=== PATIENT | male | born 1950 | race Caucasian/White ===

== ENCOUNTER → 2023-06-15 12:36 | Outpatient (REF) | payer MEDICARE, OTHER, SELFPAY ==
[2023-06-15 13:28] LABS: INR 0.95; PT 12.9 Sec (11.4-14.6)
== END ==
LOC: SDSPAT 12:36
PROVIDERS: ATTENDING PHYSICIAN Specialist; FAMILY PHYSICIAN Family Medicine
DX: N32.89 Other specified disorders of bladder (principal)
CPT/HCPCS: 36415; 85610; 85730

== ENCOUNTER → 2023-07-30 14:17 | Outpatient (REF) | payer MEDICARE, OTHER, SELFPAY | LOC: RAD 14:17 | PROVIDERS: ATTENDING PHYSICIAN Internal Medicine Gastroenterology; FAMILY PHYSICIAN Family Medicine; REFERRING PHYSICIAN Internal Medicine Hematology & Oncology | DX: C18.2 Malignant neoplasm of ascending colon (principal); C18.9 Malignant neoplasm of colon, unspecified | CPT/HCPCS: 71260; 74177; Q9967 ==

== ENCOUNTER → 2023-08-05 08:11 | Outpatient (REF) | payer MEDICARE, OTHER, SELFPAY | LOC: MRI 08:11 | PROVIDERS: ATTENDING PHYSICIAN Internal Medicine Hematology & Oncology; FAMILY PHYSICIAN Internal Medicine | DX: C18.9 Malignant neoplasm of colon, unspecified (principal); C18.2 Malignant neoplasm of ascending colon | CPT/HCPCS: 74183; A9575 ==

== ENCOUNTER → 2023-08-07 07:09 | Outpatient (REF) | payer MEDICARE, OTHER, SELFPAY ==
[2023-08-07 07:35] VITALS: BP 135/65; BP_SYST 63
[2023-08-07 07:37] LABS: Hematocrit 40.1 % (39.0-52.0); Hemoglobin 13.6 g/dL (13.0-18.0); Mean Corp Hgb Conc. 33.9 g/dL (33.0-37.0); Mean Corpuscular Hgb 33.7 pg (27.0-31.0); Mean Corpuscular Volume 99.3 fL (80.0-94.0); Mean Platelet Volume 9.2 fL (7.4-10.4); Platelet Count 227 10^3/uL (130-400); Red Blood Cell Count 4.04 10^6/uL (4.70-6.10); Red Cell Dist. Width 12.2 % (11.5-14.5); White Blood Cell Count 9.9 10^3/uL (4.8-10.8)
[2023-08-07 07:46] LABS: INR 0.99; PT 12.9 Sec (11.4-14.6)
[2023-08-07 09:28] VITALS: BP 106/91
== END ==
LOC: RADI 07:09
PROVIDERS: ATTENDING PHYSICIAN Internal Medicine Hematology & Oncology
DX: K76.89 Other specified diseases of liver (principal); C18.9 Malignant neoplasm of colon, unspecified; D68.8 Other specified coagulation defects
CPT/HCPCS: 36415; 47000; 76942; 85027; 85610; 99152; 99153

== ENCOUNTER 2023-09-06 06:14 | Inpatient (IN) | payer MEDICARE, OTHER, SELFPAY ==
[2023-08-24 09:55] VITALS: BMI 30.8
[2023-08-24 10:15] LABS: % Basophils 0.7 % (0-2); % Eosinophils 2.9 % (0-6); % Immature Granulocytes 0.4 % (0-0.5); % Lymphocytes 26.3 % (20.5-51.1); % Neutrophils 60.7 % (42.2-75.2); Absolute Basophils 0.1 10^3/uL (0-0.2); Absolute Eosinophils 0.2 10^3/uL (0-0.7); Absolute Lymphocytes 2.2 10^3/uL (1.2-3.4); Absolute Monocytes 0.7 10^3/uL (0.1-0.6); Hematocrit 39.7 % (39.0-52.0); Hemoglobin 13.5 g/dL (13.0-18.0); Mean Corpuscular Hgb 33.4 pg (27.0-31.0); Mean Corpuscular Volume 98.3 fL (80.0-94.0); Nucleated Red Blood Cells % 0 % (-); Platelet Count 224 10^3/uL (130-400); Red Blood Cell Count 4.04 10^6/uL (4.70-6.10); Red Cell Dist. Width 12.3 % (11.5-14.5); White Blood Cell Count 8.2 10^3/uL (4.8-10.8)
[2023-08-24 10:23] LABS: Blood Urea Nitrogen 22 mg/dl (9-20); Calcium 8.8 mg/dl (8.4-10.2); Carbon Dioxide 28 mmol/L (22-30); Chloride 104 mmol/L (98-107); Estimated Creatinine Clearance 47 ml/min; Glucose 95 mg/dl (70-99); Potassium 4.5 mmol/L (3.5-5.1); Sodium 135 mmol/L (135-145); eGFR 44.93
[2023-08-24 10:31] LABS: INR 0.98; PT 12.8 Sec (11.4-14.6)
[2023-09-06] VITALS (21 sets, daily range): BP systolic 100–160; BP diastolic 54–77; BMI 30.1
--- NOTE | 2023-09-06 06:55 | W.SUR.PREOP ---
Pre-Operative Surgical Note
-
I have examined this patient prior to the performance of the scheduled procedure.
The patient's condition is unchanged from the time of the current History and
Physical and the patient is able to undergo the scheduled procedure.
[2023-09-06] MEDS: PERIDEX 0.12% ORAL RINSE 15 ML PO (06:59)
[2023-09-06] MEDS: BACTROBAN NASAL 1 GRAM NASAL (06:59)
[2023-09-06] MEDS: NSS 500 IV (07:00)
[2023-09-06 09:39] LABS: ACT-LR - POC 227 Seconds (116-155)
[2023-09-06 10:29] LABS: ACT-LR - POC 260 Seconds (116-155)
--- NOTE | 2023-09-06 11:50 | W.SUR.POST ---
Surgical Immediate Post Op
Note
Pre Op Diagnosis: AAA
Post Op Diagnosis:AAA
Procedure Performed: FEVAR
Primary Surgeon: Parminder Ortiz MD
Assist: BRADY Del Cid
Anesthesia: GETA
Estimated Blood Loss: 100 mL
Fluids: See anesthesia flowsheet
Drains/Shunts: N/A
Specimens/Cultures: N/A
Doppler/Duplex/Angio (Y/N): Y
Complications: None
Operative Findings: Successful stenting of AAA with bilateral DP palpable pulses postoperatively
[2023-09-06 12:07] LABS: Hematocrit 32.8 % (39.0-52.0); Hemoglobin 11.3 g/dL (13.0-18.0); Mean Corp Hgb Conc. 34.5 g/dL (33.0-37.0); Mean Corpuscular Hgb 33.1 pg (27.0-31.0); Mean Corpuscular Volume 96.2 fL (80.0-94.0); Platelet Count 162 10^3/uL (130-400); Red Blood Cell Count 3.41 10^6/uL (4.70-6.10); Red Cell Dist. Width 12.2 % (11.5-14.5); White Blood Cell Count 17.8 10^3/uL (4.8-10.8)
[2023-09-06 12:16] LABS: INR 1.21; PT 15.3 Sec (11.4-14.6)
[2023-09-06 12:17] LABS: APTT 35.2 Sec (23.4-35.0)
[2023-09-06 12:22] LABS: Blood Urea Nitrogen 38 mg/dl (9-20); Calcium 7.9 mg/dl (8.4-10.2); Carbon Dioxide 20 mmol/L (22-30); Chloride 107 mmol/L (98-107); Estimated Creatinine Clearance 50 ml/min; Glucose 140 mg/dl (70-99); Potassium 4.7 mmol/L (3.5-5.1); Sodium 136 mmol/L (135-145); eGFR 48.55
--- NOTE | 2023-09-06 13:00 | PTCARENOTE ---
Pt arrived from PACU with RN, monitor with oxygen nasal cannula 4 liters via bed. He is awake and alert. C/O right eye discomfort 'I feel like there is something in my eye'. Right eye is red and he is continuously rubbing it. He was informed of the
plan of care of pulse checks, pain control and BP management. He was also oriented to the unit and the use of the call khoury. Right radial arterial line transduced, calibrated and monitored, all ports patent and secured. Left FA#20g protective
catheter with 0.9NSS @ 125ml/hr. Right AC #18g protective catheter flushed and patent. Palpable peripheral pulses, feet equally warm with good capillary refill. 4 liters nasal cannula, oxygen saturation 97%. Breath sounds CTA. He is clearing his
throat. C/O dryness in his throat. He was able to tolerate small sips of water. 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 Right groin slightly more tender than the left. He is flat until 1440. Temperature sensing Umanzor catheter
secured and draining clear yellow urine. Family at the bedside. He designated Krystin and primary emergency contact and Gali his secondary emergency contact, both his daughters. Attempted to clear 'debris' from his right eye using 0.9NN irrigant
without success.
[2023-09-06 13:17] LABS: Magnesium 1.9 mg/dl (1.6-2.3)
[2023-09-06] MEDS: ROXICODONE 5 MG PO (13:23)
[2023-09-06] MEDS: PLAVIX 300 MG PO (13:23)
[2023-09-06] MEDS: LOW STRENGTH ASPIRIN 81 MG PO (13:23)
[2023-09-06] MEDS: NSS 1000 IV ×2 (13:24→17:36)
[2023-09-06] MEDS: PROSCAR 5 MG PO (17:36)
[2023-09-06] MEDS: LIPITOR 20 MG PO (17:37)
--- NOTE | 2023-09-06 18:29 | PTCARENOTE ---
Left lower extremity KIERA wrap dressing CDI. Maintaining doppler signals to his foot. Feet equally warm.
[2023-09-06] MEDS: TUMS 2 TABLET PO (19:37)
--- NOTE | 2023-09-06 20:00 | PTCARENOTE ---
Resumed care of pt this evening. Received pt on nitro gtt infusing at 15 mcg/min. Pt is A&Ox3. Pt is able to move all 4 extremities, has sensation in all 4 extremities, and can make needs known. Pt is NSR/SB on tele monitor. Pt has trace edema at
surgical site, b/l groin. B/L Radial pulses and dorsalis pedal pulses all palpable. Rt DP weak on palpation. Pt on 1L of O2 satting at 94% pulse ox. On auscultation pt lungs sound diminished at the bases bilaterally. Surgical site, b/l groin closed
with surgical glue and ARRT TECHNOLOGIST. Surgical site is also ecchymotic.
[2023-09-06] MEDS: FLOMAX 0.400000000000000022 MG PO (20:59)
[2023-09-06] MEDS: HIPREX 1 GRAM PO (21:00)
[2023-09-06] MEDS: HEPARIN 5000 UNITS SC (21:02)
[2023-09-06] MEDS: TUMS EX (EXTRA STRENGTH) CHEWABLE 2 TABLET PO (21:40)
[2023-09-07] VITALS (12 sets, daily range): BP systolic 120–148; BP diastolic 59–89; BMI 31.1
--- NOTE | 2023-09-07 02:00 | PTCARENOTE ---
Nitro gtt turned off per protocol. Neurovascular checks unchanged upon reassessment. Pt denies pain.
[2023-09-07 04:48] LABS: Hematocrit 30.3 % (39.0-52.0); Hemoglobin 10.4 g/dL (13.0-18.0); Mean Corp Hgb Conc. 34.3 g/dL (33.0-37.0); Mean Corpuscular Hgb 33.3 pg (27.0-31.0); Mean Corpuscular Volume 97.1 fL (80.0-94.0); Mean Platelet Volume 9.3 fL (7.4-10.4); Platelet Count 163 10^3/uL (130-400); Red Blood Cell Count 3.12 10^6/uL (4.70-6.10); Red Cell Dist. Width 12.4 % (11.5-14.5); White Blood Cell Count 16.5 10^3/uL (4.8-10.8)
[2023-09-07 04:56] LABS: INR 1.09; PT 14.2 Sec (11.4-14.6)
[2023-09-07 04:57] LABS: APTT 31.2 Sec (23.4-35.0)
[2023-09-07 05:15] LABS: Blood Urea Nitrogen 37 mg/dl (9-20); Calcium 8.1 mg/dl (8.4-10.2); Carbon Dioxide 19 mmol/L (22-30); Chloride 107 mmol/L (98-107); Estimated Creatinine Clearance 48 ml/min; Glucose 132 mg/dl (70-99); Potassium 4.7 mmol/L (3.5-5.1); Sodium 134 mmol/L (135-145); eGFR 44.93
[2023-09-07 06:04] LABS: Hepatitis C Antibody Negative (Negative)
--- NOTE | 2023-09-07 08:00 | PTCARENOTE ---
Received pt awake and alert.speech is appropriate.+5/5 TENA.Denies pain.SR noted.A Line discontinued as ordered.Lungs CTA.PO 96% on RA.Appetite good.No BM.Umanzor discontinued.DTV 1400.BL groin puncture wounds intact with adhesive.No drainage or edema
noted.Plan of care discussed with pt.
[2023-09-07] MEDS: LOW STRENGTH ASPIRIN 81 MG PO (08:13)
[2023-09-07] MEDS: FLOMAX 0.400000000000000022 MG PO (08:14)
[2023-09-07] MEDS: THERAGRAN 1 TABLET PO (08:15)
[2023-09-07] MEDS: HIPREX 1 GRAM PO (08:15)
[2023-09-07] MEDS: CARDIZEM CD 180 MG PO (08:15)
[2023-09-07] MEDS: PLAVIX 75 MG PO (08:15)
[2023-09-07] MEDS: ZESTRIL 10 MG PO (08:16)
[2023-09-07] MEDS: HEPARIN 5000 UNITS SC (08:23)
--- NOTE | 2023-09-07 08:34 | W.PN.VS ---
Addendum entered and electronically signed by Parminder Ortiz MD 09/07/23 11:39:
Seen and examined with ALANNA Epps. Agree with findings as noted below. Patient without significant complaints. No abdominal pain. No postprandial pain. Abdomen is soft, nondistended, nontender. Groins flat bilaterally. Small incisions clean dry
and intact bilaterally. Feet are warm with right-sided 2+ palpable PT pulse, left-sided 2+ palpable DP pulse.
Umanzor with clear yellow urine. Labs reviewed.
Plan/as discussed and noted below.
Original Note:
Today's Communication / Plan
-
Plan reviewed with attending Dr. Parminder Ortiz
Assessment/Plan
-
Assessment: 72-year-old male POD #1 FEVAR for treatment of AAA
Plan:
Continue DAPT therapy
Discontinue arterial line
Discontinue Umanzor catheter
OOB to chair with progression of ambulation as tolerated
Subjective Data
-
Date of Service: September 07, 2023
Patient seen and examined at bedside, offers no complaints. Denies abdominal pain, nausea, vomiting, fever, and chills. Tolerating p.o. intake.
Objective Data
-
Vital Signs
Temp Pulse Resp BP Pulse Ox
97.9 F 47 11 145/64 95
09/07/23 08:00 09/07/23 06:15 09/07/23 06:15 09/07/23 06:00 09/07/23 06:15
Intake and Output
09/06/23 09/07/23 09/08/23
06:59 06:59 06:59
Intake Total 2359.5 / 2359.5
Output Total 1614 / 1614
Balance 745.5 / 745.5
Intake:
Oral fluids 360 / 360
IV fluids (Total) 1998.5 / 1998.5
Nitro gtt 14.5 / 14.5
Nss 1,000 ml @ 125 mls/hr IV . 625 / 625
Q8H POOL Rx#:[id number]
Nss 1,000 ml @ 80 mls/hr IV . 960 / 960
[id number] POOL Rx#:[id number]
nss 400 / 400
Output:
Urine, Umanzor 1614 / 1614
Lab Results
09/07/23 04:21
09/07/23 04:21
Calcium 8.1 mg/dl (8.4-10.2) L 09/07/23 04:21
Magnesium 1.9 mg/dl (1.6-2.3) 09/06/23 11:56
Physical Exam
-
AAOx3, no apparent distress
No tachycardia
No dyspnea on room air
ABD soft, nontender, nondistended
Bilateral groin sites CDI, Exofin glue intact, no evidence of hematoma, all surrounding compartments soft
Umanzor draining clear yellow urine
Bilateral feet warm with +2 palpable DP pulse
--- NOTE | 2023-09-07 11:49 | CON.INTV ---
Consultation
Consultation Request
Date/Time Consultation Requested: 09/07/2023
Date/Time Consultation Performed: 09/07/2023
Requesting Provider: Dr. Ortiz
Performing Provider: Dr. Tahir Rosado
Reason for Consultation: Postoperative ICU care
Medical History
-
History of Present Illness:
72-year-old man with past medical history significant for hypertension, high cholesterol, COPD, BPH, colon cancer spread to liver who also has history of infrarenal abdominal aortic aneurysm. Admitted for revascularization.Patient underwent FEVAR
on 09/07/2023.
Overnight without significant events. Remained hemodynamically stable.
This morning he is ambulatory.
Denies any significant pain.
Denies abdominal pain or back pain.
Denies shortness of breath.
Past Medical History
Past Medical History: Other (See assessment and plan section)
Social History
Tobacco: Former Smoker ([id number] history. Quit 3 years ago.)
Alcohol: None
Drug: None
Family History
Family History: Reviewed & Not Pertinent
Allergies / Home Medications
Allergies
Allergy/AdvReac Type Severity Reaction Status Date / Time
iodine Allergy Hives Verified 09/06/23 06:31
Home Medications
Medication Instructions Recorded Confirmed Last Taken Type
atorvastatin 20 mg tablet 20 mg PO QPM High Cholesterol 04/09/23 09/06/23 09/05/23 17:00 History
finasteride 5 mg tablet 5 mg PO QPM Urinary Issue 04/09/23 09/06/23 09/05/23 17:00 History
lisinopril 10 mg tablet 10 mg PO DAILY Blood Pressure 04/09/23 09/06/23 09/06/23 05:00 History
tamsulosin 0.4 mg capsule 0.4 mg PO BID Urinary Issue 04/09/23 09/06/23 09/05/23 17:00 History
diltiazem HCl 180 mg 180 mg PO DAILY Heart 05/29/23 09/06/23 09/06/23 05:00 History
tablet,extended release 24 hr Disease/Condition
fish, borage, flaxseed oils-omega 2 cap PO DAILY Supplement 05/29/23 09/06/23 09/05/23 05:00 History
3,6,9 cb #1 400 mg-400 mg-400 mg
cap ([place]ple [place] 3-6-9)
wxsvojtrxbmn-jqovngut-hondow tablet 1 tab PO DAILY Supplement 05/29/23 09/06/23 09/05/23 05:00 History
methenamine hippurate 1 gram tablet 1 g PO BID Gastrointestinal Issue 06/15/23 09/06/23 09/05/23 17:00 History
albuterol sulfate 90 mcg/actuation 1 puff inhalation Q4H WHEEZING 09/06/23 09/06/23 Unknown History
aerosol inhaler
umeclidinium 62.5 mcg-vilanterol 2 inh inhalation DAILY 09/06/23 09/06/23 Unknown History
25 mcg/actuation powdr for Lung/Breathing Issues
inhalation (Anoro Ellipta)
Review of Systems
-
History Source: Patient
All other systems: Negative unless noted
Vitals / Labs / Diagnostic Testing
Vital Signs
Temp Pulse Resp BP Pulse Ox
97.9 F 47 11 145/64 95
09/07/23 08:00 09/07/23 06:15 09/07/23 06:15 09/07/23 06:00 09/07/23 06:15
Lab Data
09/07/23 04:21
09/07/23 04:21
Laboratory Results
09/06/23 09/07/23
11:56 04:21
PT 15.3 H 14.2
INR 1.21 1.09
APTT 35.2 H 31.2
Diagnostic Testing:
Physical Exam
-
HEENT: Normocephalic
Cardiovascular: S1/S2
Respiratory: Clear and Non-Labored Respirations
GI: Soft and Non Distended
Neurology: Awake, Alert, Oriented and AO x 3
General: Other (Inguinal puncture sites without hematoma.)
Assessment
-
Status post FEVAR 09/06/2023-Dr. Ortiz
History of infrarenal aortic abdominal aneurysm.
-
Conditions present prior admission:
Hypertension
Hypercholesterolemia
COPD
History of BPH
Colon cancer metastatic to liver
Former smoker who quit 5 years ago
-
Assessment and plan:
Postoperative day 1
Patient is doing well, ambulatory.
Pain is controlled.
Hemodynamically stable
Tolerating diet
Denies any discomfort.
-
Vascular correspondence reviewed
Continue antiplatelets
Monitor for bleeding
Continue with neurovascular checks
Umanzor has been removed
Increase ambulation as tolerated
-
Hemodynamically stable
Arterial line has been discontinued
Restart outpatient medications
From COPD perspective clear lungs. Off oxygen
Continue inhalers
-
Laboratories: Mild anemia. Asymptomatic.
Leukocytosis likely reactive.
Renal function at baseline.
There is a mild nongap metabolic acidosis. Possibly post saline. Patient appears nontoxic. He feels well.
-
If stable, considering possible discharge in the afternoon.
--- NOTE | 2023-09-07 11:55 | CM ---
CM following re: discharge planning.
Discussed in Rounds, reviewed pt's chart, met with pt and pt's son Duran at bedside. .
Pt is a 72 year old male, admitted with primary dx of POD #1 FEVAR for treatment of AAA. Per vascular surgery pt most likely will be discharged this afternoon. Pt is aware, expressed his agreement and pt stated he will stay with his daughter at her
house upon the discharge. IMM reviewed, placed in chart, pt has a copy.
Pt reports he lives alone in [place], 3 steps to enter, has 3 supportive children. 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
PCP: Margarito Edwards
Pharmacy: [facility]
D/C plan: home no needs. Son to transport.
--- NOTE | 2023-09-07 12:49 | PTCARENOTE ---
Pt assessed.No change in assessment noted.Pt ambulated around unit without difficulty.
--- NOTE | 2023-09-07 13:04 | OR.RPT ---
Operative Report
Operative Report
PROCEDURE DATE: 09/06/2023
Preoperative diagnosis: Abdominal aortic aneurysm, left common iliac artery aneursym
Postoperative diagnosis: Same
Procedure:
1. Endovascular repair of abdominal aortic aneurysm with FENESTRATED proximal aortic endoprosthesis, bifurcated modular distal aortic endoprosthesis and bilateral iliac limb extensions, including cuff repair left common iliac artery aneurysm.
(Using [employer] Z FEN system). CPT code 60560 + 46176
2. Right renal artery stent placement with Atrium iCAST 6 mm x 20 mm balloon mounted covered stent.
3. Percutaneous bilateral common femoral artery closure.
4. Supervision and interpretation.
Surgeon: Angel
Air Table Operator: Maria Eugenia
Complications: None
Anesthesia: General
Indications for procedure:
Patient had a slightly enlarging abdominal aortic aneurysm which met size criteria for repair. He had an unsuitable infrarenal proximal neck for sealing a standard endovascular aneurysm stent graft. Therefore discussed fenestrated endovascular
aneurysm repair. Discussed risk/benefits/alternatives extensively. Did discuss that he has accessory renal arteries that would likely be covered. He understood everything and wished to proceed.
Description of procedure:
Patient was identified brought to the operating room placed on the table in supine position. After the adequate administration of anesthesia and perioperative antibiotics he was prepped and draped in the standard surgical fashion. A standard
preoperative timeout was undertaken and everybody was in agreement the plan. Bilateral common femoral artery access was obtained under direct duplex ultrasound guidance. 6 [place] sheaths were placed over 0.035 inch wires. Next, small 1 cm
incisions were made around the sheath entry sites bilaterally. Blunt dissection was undertaken with hemostats to facilitate percutaneous suture delivery. Next, using the ProGlide suture system, percutaneous sutures were deployed at the 10:00 and 2
o'clock position bilaterally in the standard fashion. Suture strands were tagged outside the skin. We exchanged for 11 [place] sheaths bilaterally. Next using a KMP catheter, I guided wires into the supraceliac aorta from bilateral access sites.
The patient was given 8000 units of intravenous heparin. On the left side I exchanged out for a pigtail catheter which was positioned in the juxtarenal aorta. On the right side, I exchanged over a Lunderquist wire in the aorta the 11 [place] sheath
for the fenestrated endovascular aneurysm proximal graft. This was a [id number]. (34 mm proximal main body with large fenestration for SMA and left renal, small fenestration for right renal). This was oriented under fluoroscopy prior to
inserting it over the wire. I followed the delivery system up under fluoroscopy. The vertical anterior markers and horizontal posterior markers were appropriately oriented so that the stent graft was positioned in a appropriate anterior/posterior
positioning. I positioned it relatively into place and then performed power injection aortography via the pigtail from the left sided access. As such I was able to aidee on the screen the level of the right main renal artery as well as the left
main renal artery. I then reposition my device over the wire such that the right renal artery fenestration would align it just cephalad to the right renal artery origins so as to facilitate cannulation. Once I was happy with the positioning I
began to on sheath the first 2 stents of the main body. Happy with the positioning and the positioning of the right renal artery fenestration, I then continued to an sheath the entirety of the main body. Next, I exchanged out my pigtail catheter
from the left side for a floppy angled hydrophilic wire. Then using different catheters I tried to cannulate into the proximal fenestrated piece. This took some time as the angles proved to be slightly difficult but finally was able to pass in to
the proximal ZFEN piece with a flap angled hydrophilic wire and a Randy catheter. Once and, I then tried to cannulate the right renal artery fenestration. I tried multiple times with a couple different catheters including a glide catheter, Randy
catheter, Vanche 4 catheter. I spent a significant amount of time trying to cannulate but was unable to do so despite multiple attempts. I then in order to give better stability, exchanged for a Eid wire through my left-sided access 11 [place]
sheath. Then over the Eid wire I advanced a curved Ansell sheath (6 [place]). This was advanced into the ZFEN proximal piece. Now I through this sheath used a floppy Glidewire and a Vanche 4 catheter. I had to flip my sheath so that the angle
was facing more towards the fenestration, and then I was able to align the catheter right against the fenestration. I still had trouble cannulating and therefore I performed angiography. Initially I was unable to see the right renal artery fill.
At this point, I began attempting to manipulate the graft by rotating it. Initially rotated counterclockwise. However was still unable to cannulate although certain manipulations. I therefore then elected to pull the graft downward/distally
slightly as I felt that the fenestration vitamin slightly high as well. Once I did this, the torque that had built up and rotating the device seem to give and the graft seem to somewhat better align itself. Now on angiography I could see filling
into the right renal artery, but still was unable to cannulate it. Therefore given persistent difficulty and some unclarity whether I needed to rotate clockwise or counterclockwise, I then selectively cannulated the SMA through the large
fenestration for the SMA. This was easily done using an angled catheter and a floppy Glidewire. I then exchanged for a glide catheter and a Eid wire. Over the Eid wire in the SMA I used an 8 mm angioplasty balloon to balloon the origin of the
SMA so as to help the graft main body to rotate and align itself overall. The graft did seem to align somewhat. However once I removed my balloon and wire from the SMA and then again tried to cannulate the right renal artery was unable to do so
initially. Finally after continued manipulation including some clockwise rotation as well as pulling downward (caudad) on the graft, I was finally able to cannulate the right renal fenestration into the right renal artery. Initially my wire could
not get very far out due to the tortuosity/knuckle in the right renal artery. Therefore I again lost wire access in the right renal artery as it buckled under the pressure. However I was able to cannulate it again while maintaining clockwise
rotation and inferior traction. Now I was able to gain slightly more distal wire access. Once I did this I exchanged my catheter out for a 4 [place] glide catheter. I advanced this all the way out the renal artery. Angiogram confirmed I was in
the renal artery. I now exchanged for a Eid wire. Over the Eid wire then with the glide catheter in place I was able to advance my Ansell sheath into the renal arteries well. Now I exchanged out my glide catheter for an Atrium iCAST 6 mm x 22
mm covered stent which was positioned within the sheath. At this point we noticed that the anterior/posterior markers on the main body were rotated in fact fairly far in a clockwise direction. This suggested that the SMA and left renal artery
large fenestrations would be malaligned. Therefore maintaining the Ansell sheath in the right renal artery, I rotated the entire main body back to orient the anterior/posterior markers. Once I did this the graft seem to settle itself and looked
well. At this point I was very satisfied.
I now released my diameter reducing constraint. The proximal and distal constraints were released and the top cap was released thereby releasing the superior bare-metal stents. At this point I used a Coda balloon to balloon mold the proximal
portion of the graft as well as the second set of stents on the main body of the graft thereby molding the proximal seal zone. Once I completed this I then deployed my right renal artery stent after withdrawing the sheath such that the stent was
two thirds in the right renal artery, one third into the aorta. I then post angioplastied the portion of the stent into the aorta with a 10 mm balloon in the standard fashion. At this point I was satisfied with my renal artery stenting. I then
recaptured the top And walked out the delivery device over the wire from the right sided access. I exchanged for the distal main body. This was a [id number]. I oriented this under fluoroscopy first maintaining orientation of the
contralateral limb in the standard orientation (not crossing the limbs). I then inserted it with suitable overlap into the proximal piece (maximal overlap was obtained). At this point I was able to then remove my wires/catheter/sheath from the
right renal artery. I then on sheath the distal main body to the contralateral gate. Next, using a flap angled hydrophilic wire and an angled catheter from the left sided access, I was able to cannulate the contralateral gate. I advanced my
catheter into the main body through the gate over the wire. I performed angiogram to confirm that I was within the main body of the distal piece. Satisfied, I released the proximal constraint of this piece. Next, over a Lunderquist wire I placed
a pigtail marker catheter. I then performed retrograde pelvic angiogram to aidee the iliac bifurcation on the screen. I then extended a left-sided iliac limb using a [id number]. Then, in a planned fashion, I extended further in order to flare
into the ectatic/aneurysmal common iliac artery and additional stent using [id number] cuff. I made sure that 1 full stent of that piece would be outside of the more proximal iliac limb so as to allow it to seat up against the wall/sealed. At
this point I was satisfied with the left-sided iliac stenting. I therefore turned my attention to the right side. I completed on she think the remainder of the ipsilateral gate. I then released the the distal constraints. I then extended my
iliac with an iliac limb using a [id number]. This was done after marking the iliac bifurcation on the screen so as to ensure that I would protect the internal iliac artery on the side as well. Upon completion Coda balloon molding was used to
mold the overlap between the proximal and distal main body pieces, as well as the iliac limbs. And any other overlaps. Completion angiography (power injection) was performed at this point. This demonstrated excellent positioning of the stent
graft. Good filling could be seen of the celiac, SMA, bilateral renal arteries. In addition both iliac limbs filled well, and feeling of the external and internal iliac arteries could be seen. There is no evidence of endoleak (not even a type II
endoleak was noted). At this point I was very satisfied. I exchanged my pigtail catheter out over a Lunderquist wire.
I then sequentially (starting in the right groin and then the left groin) cinched down my percutaneous sutures while removing the sheath. Hemostasis was noted and therefore the wire was removed, the knots were further cinched down with a knot
pusher. The knots were then locked and cut. Hemostasis was achieved. This was done in both groins. I gave protamine to reverse the heparin. The small incisions in both groins were closed with 4-0 Monocryl suture. Dermabond was applied. The
patient tolerated procedure well. Upon completion he had a palpable right posterior tibial pulse and a palpable left dorsalis pedis pulse.
--- NOTE | 2023-09-07 13:55 | W.DS.TRANS ---
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
-
Discharge Instructions:
Discharge Diagnosis/Procedures Endovascular repair of abdominal aortic aneurysm
with FENESTRATED proximal aortic endoprosthesis
Diet As tolerated
Activity No strenuous activity
Driving Restrictions No driving for 1 week
Bathing Restrictions OK to Shower
Instructions:
Stand-Alone Forms: DC Instr - Vascular OR
Changes to Home Medications: Yes
Discharge Medications:
DC Medications w/original date entered in [facility]
atorvastatin 20 mg tablet 20 mg PO QPM High Cholesterol 04/09/23
finasteride 5 mg tablet 5 mg PO QPM Urinary Issue 04/09/23
lisinopril 10 mg tablet 10 mg PO DAILY Blood Pressure 04/09/23
tamsulosin 0.4 mg capsule 0.4 mg PO BID Urinary Issue 04/09/23
diltiazem HCl 180 mg tablet,extended release 24 hr 180 mg PO DAILY Heart Disease/Condition 05/29/23
fish, borage, flaxseed oils-omega 3,6,9 cb #1 400 mg-400 mg-400 mg cap (Triple [place] 3-6-9) 2 cap PO DAILY Supplement 05/29/23
tubsdxsxuuib-ydfkewqy-ycyqvj tablet 1 tab PO DAILY Supplement 05/29/23
methenamine hippurate 1 gram tablet 1 g PO BID Gastrointestinal Issue 06/15/23
albuterol sulfate 90 mcg/actuation aerosol inhaler 1 puff inhalation Q4H WHEEZING 09/06/23
umeclidinium 62.5 mcg-vilanterol 25 mcg/actuation powdr for inhalation (Anoro Ellipta) 2 inh inhalation DAILY Lung/Breathing Issues 09/06/23
aspirin 81 mg chewable tablet (Children's Aspirin) 81 mg PO DAILY #90 tabs 09/07/23
clopidogrel 75 mg tablet 75 mg PO DAILY #90 tabs 09/07/23
oxycodone 5 mg tablet 5 mg PO Q4HPRN PRN moderate pain #4 tabs 09/07/23
Home Medication Changes
Added:
aspirin 81 mg chewable tablet (Children's Aspirin) 81 mg PO DAILY #90 tabs 09/07/23
clopidogrel 75 mg tablet 75 mg PO DAILY #90 tabs 09/07/23
oxycodone 5 mg tablet 5 mg PO Q4HPRN PRN moderate pain #4 tabs 09/07/23
Pending Results: No
--- NOTE | 2023-09-07 14:05 | W.DCSUMMARY ---
Discharge Summary
Discharge Data
Date of Admission: 09/06/23
Date of Discharge: 09/07/23
-
Pending Results: No
Hospital Course
Attending: Dr. Parminder Ortiz
Consultants: Pulmonary medicine
Allergies: Iodine
Procedure with date:Endovascular repair of abdominal aortic aneurysm with FENESTRATED proximal aortic endoprosthesis, bifurcated modular distal aortic endoprosthesis and bilateral iliac limb extensions, including cuff repair left common iliac artery
aneurysm. (Using [employer] Z FEN system). CPT code 75841 + 85937. Right renal artery stent placement with Atrium iCAST 6 mm x 20 mm balloon mounted covered stent. Percutaneous bilateral common femoral artery closure.
History of present illness: The patient is an 72-year-old male with multiple medical conditions including: AAA, prostate disease, high cholesterol, COPD, and colon cancer. Patient presented on 09/06/2023 for scheduled procedure with Dr. Parminder Ortiz.
Patient presented at baseline health with no reports of recent illness or trauma.
Hospital Course: Briefly, the patient underwent scheduled endovascular repair of abdominal aortic aneurysm with fenestrated endoprosthesis without complications, and recovered in PACU. Following recovery phase one and two patient was transferred to
intensive care unit per protocol for continued hemodynamic monitoring. Feeder Catcher consulted to aid in medical management from a critical care perspective. Patient did require brief utilization of nitro infusion for blood pressure management. POD
#1 (09/07/2023) Patient denies nausea, vomiting, abdominal pain, lower extremity pain, fever, and chills. Tolerating PO diet. Bilateral surgical puncture sites clean, dry, and intact and soft. No evidence of hematoma. Arterial line, Umanzor catheter,
and IV fluids discontinued. Patient voided post Umanzor urinary catheter removal. Patient able to ambulate without difficulty or incident. Patient stable for discharge to home.
Prescriptions and follow up appointment are included in the DC summary road service locksmith note. All instructions were given to the patient in both written and verbal form and the patient expressed understanding.
Discharge Plan
-
Patient Disposition: Home (Routine Discharge)
Discharge Diagnosis/Procedures: Endovascular repair of abdominal aortic aneurysm with FENESTRATED proximal aortic endoprosthesis
Condition: Good
Diet: As tolerated
Activity: No strenuous activity
Driving Restrictions: No driving for 1 week
Bathing Restrictions: OK to Shower
Stand Alone Forms: DC Instr - Vascular OR
Referrals:
Nell Lockhart PA-C [Specified Professional Personl] - 09/20/23 10:30 am
Margarito Edwards MD [Family Provider] -
Prescriptions:
New
clopidogrel 75 mg Tablet
75 mg PO DAILY Qty: 90 0RF
aspirin [Children's Aspirin] 81 mg Tablet,Chewable
81 mg PO DAILY Qty: 90 0RF
oxycodone 5 mg Tablet
5 mg PO Q4HPRN PRN (Reason: moderate pain) Qty: 4 0RF
Continued
atorvastatin 20 mg Tablet
20 mg PO QPM
tamsulosin 0.4 mg Capsule
0.4 mg PO BID
Rx Instructions:
taken morning and night
lisinopril 10 mg Tablet
10 mg PO DAILY
finasteride 5 mg Tablet
5 mg PO QPM
zmgsgvjhfrnw-ndnoroyw-mzzwkf Tablet
1 tab PO DAILY
diltiazem HCl 180 mg Tablet Extended Release 24 Hr
180 mg PO DAILY
fish,bora,flax oils-om3,6,9no1 [Triple [place] 3-6-9] 400-400-400 mg Capsule
2 cap PO DAILY
methenamine hippurate 1 gram Tablet
1 g PO BID
albuterol sulfate 90 mcg/actuation Hfa Aerosol Inhaler
1 puff INHALATION Q4H
Anoro Ellipta 62.5-25 mcg/actuation Blister With Device
2 inh INHALATION DAILY
Discharge Orders:
Discharge Patient (As Directed); Ordered 09/07/23
Ordered By: Blanca Epps
== END 2023-09-07 14:47 | disposition home or self-care (01) | DRG 269 ==
LOC: ICU 06:14
PROVIDERS: Nurse Practitioner; ADMITTING PHYSICIAN Surgery Vascular Surgery; CONSULT PHYSICIAN Internal Medicine Critical Care Medicine; FAMILY PHYSICIAN Family Medicine
PROC: 04793DZ Dilation of Right Renal Artery with Intraluminal Device, Percutaneous Approach (ICD-10-PCS; 2023-09-06)
PROC: 04UD3JZ Supplement Left Common Iliac Artery with Synthetic Substitute, Percutaneous Approach (ICD-10-PCS; 2023-09-06)
PROC: 04V03EZ Restriction of Abdominal Aorta with Branched or Fenestrated Intraluminal Device, One or Two Arteries, Percutaneous Approach (ICD-10-PCS; 2023-09-06)
PROC: 04VD3DZ Restriction of Left Common Iliac Artery with Intraluminal Device, Percutaneous Approach (ICD-10-PCS; 2023-09-06)
DX: I71.43 Infrarenal abdominal aortic aneurysm, without rupture (principal); E87.20 Acidosis, unspecified; I10 Essential (primary) hypertension; E78.00 Pure hypercholesterolemia, unspecified; J44.9 Chronic obstructive pulmonary disease, unspecified; N40.0 Benign prostatic hyperplasia without lower urinary tract symptoms; I72.3 Aneurysm of iliac artery; D64.9 Anemia, unspecified; D72.829 Elevated white blood cell count, unspecified; Z87.891 Personal history of nicotine dependence; Z91.041 Radiographic dye allergy status; Z85.038 Personal history of other malignant neoplasm of large intestine
CPT/HCPCS: 36415; 71045; 80048; 83735; 85025; 85027; 85610; 85730; 86803; 86850; 86900; 86901; 93005; C1725; C1760; C1769; C1874; C1892; C1894; C2628; Q9967

== ENCOUNTER 2023-09-09 09:21 | Inpatient (IN) | payer MEDICARE, OTHER, SELFPAY ==
[2023-09-09] VITALS (17 sets, daily range): BP systolic 119–162; BP diastolic 56–88; BMI 31.9; BMI 29.5
[2023-09-09] MEDS: PROTONIX IV 80 MG IV (05:13)
[2023-09-09] MEDS: PROTONIX 100 IV ×2 (05:13→15:15)
[2023-09-09 05:34] LABS: % Basophils 0.5 % (0-2); % Eosinophils 1.1 % (0-6); % Immature Granulocytes 0.6 % (0-0.5); % Monocytes 11.1 % (1.7-9.3); % Neutrophils 68.7 % (42.2-75.2); Absolute Basophils 0.1 10^3/uL (0-0.2); Absolute Eosinophils 0.1 10^3/uL (0-0.7); Absolute Immature Granulocytes 0.1 10^3/uL (0-0.05); Absolute Lymphocytes 1.7 10^3/uL (1.2-3.4); Absolute Monocytes 1.1 10^3/uL (0.1-0.6); Absolute Neutrophils 6.5 10^3/uL (1.4-6.5); Hematocrit 29.6 % (39.0-52.0); Hemoglobin 10.4 g/dL (13.0-18.0); Mean Corp Hgb Conc. 35.1 g/dL (33.0-37.0); Mean Corpuscular Hgb 33.8 pg (27.0-31.0); Mean Corpuscular Volume 96.1 fL (80.0-94.0); Mean Platelet Volume 9.4 fL (7.4-10.4); Nucleated Red Blood Cells % 0 % (-); Platelet Count 165 10^3/uL (130-400); Red Blood Cell Count 3.08 10^6/uL (4.70-6.10); Red Cell Dist. Width 12.4 % (11.5-14.5); White Blood Cell Count 9.4 10^3/uL (4.8-10.8)
[2023-09-09 05:46] LABS: INR 1.07; PT 13.8 Sec (11.4-14.6)
[2023-09-09 05:47] LABS: APTT 35.2 Sec (23.4-35.0)
[2023-09-09 05:51] LABS: ALT (SGPT) 16 U/L (0-50); AST (SGOT) 22 U/L (17-59); Albumin 3.1 g/dl (3.5-5.0); Alkaline Phosphatase 103 U/L (38-126); Blood Urea Nitrogen 45 mg/dl (9-20); Calcium 8.1 mg/dl (8.4-10.2); Carbon Dioxide 24 mmol/L (22-30); Chloride 110 mmol/L (98-107); Glucose 111 mg/dl (70-99); Lipase 51 U/L (23-300); Potassium 4.7 mmol/L (3.5-5.1); Sodium 136 mmol/L (135-145); Total Bilirubin 0.8 mg/dl (0.2-1.3); Total Protein 5.6 g/dl (6.3-8.2); eGFR 36.56
--- NOTE | 2023-09-09 06:47 | ED.GENMED ---
History of Present Illness
General
Chief Complaint: Rectal Bleeding
Source: patient
Exam Limitations: none
Time Seen by Provider: 09/09/23 06:05
Travel History
Have you had any contact with someone who has COVID-19?: No
Do you have any symptoms of coronavirus? Fever > 100 degrees, chills, cough, shortness of breath, sore throat, loss of taste or smell, muscle aches, or headache?: No
History of Present Illness
History of Present Illness:
72-year-old male who presents with rectal bleeding. The patient states that the symptoms began around 2 AM with black stools. Patient reports that he then noticed red stool. The patient recently had endovascular repair of his aortic aneurysm 2
days ago. He also has been diagnosed with colon cancer and is about to start management. The patient reports he is on aspirin and Plavix. Patient did feel little bit short of breath while laying in bed but denies abdominal pain. No chest pain.
No fevers. Reports a little bit of groin pain from his recent procedure but nothing it is expected.
Past History
Past History
ED Past Medical History: Cancer (Colon cancer), HTN, Hypercholesterolemia, Other (AAA) and Other (BPH/prostatitis)
ED Past Surgical History: Cholecystectomy and Tonsilectomy
Social History
Tobacco: Former smoker
Alcohol: None
Drug: None
Personal:
Living: with family
Phy Exam
Physical Exam
Physical Exam:
CONSTITUTIONAL Patient alert and oriented to person, place and time. Well-appearing. Vital signs reviewed.
HEAD atraumatic, normocephalic.
EYES eyelids normal to inspection, Pupils equally round and reactive to light, Extraocular muscles intact, Conjunctiva normal, Sclera normal.
NECK normal range of motion, Trachea midline, no jugular venous distention.
RESPIRATORY CHEST No respiratory distress noted, Chest expansion equal, Bilateral breath sounds clear.
CARDIOVASCULAR regular rate and rhythm, Heart sounds normal.
ABDOMEN abdomen nontender, Bowel sounds normal. No distention.
Rectal exam strongly positive maroon stool
BACK normal inspection, no obvious deformities
UPPER EXTREMITY range of motion normal, Motor strength normal, no cyanosis, no edema.
LOWER EXTREMITY range of motion normal, Motor strength normal, no cyanosis, no edema.
NEURO Speech normal, No focal motor deficits, Annelise coma scale 15, Memory normal, Cranial Nerves intact to screening exam.
SKIN skin warm, dry, and normal in color.
Course
Orders/Labs/Results
Orders:
Orders
09/09/23 04:49
Electrocardiogram (*1) Stat
Reason for Study: Other
Other Reason for Exam: GI Bleed
Cardiac Monitoring- Treatment ONCE
EKG- Treatment ONCE
IV Insert/Care/Rem.- Treatment PRN
Pantoprazole 80 mg/100 ml Nss [Protonix] 80 mg in 100 ml IV NOW
Pantoprazole [Protonix IV] 80 mg IV NOW STA
09/09/23 05:26
Complete Blood Count/With Diff Urgent
Comprehensive Metabolic Panel Urgent
Lipase Urgent
PTT Urgent
Prothrombin Time Urgent
09/09/23 05:31
Pantoprazole [Protonix IV] 40 mg .ROUTE .STK-MED ONE
Abnormal Lab Results
09/09/23
05:26
RBC 3.08 L 10^6/uL
(4.70-6.10)
Hgb 10.4 L g/dL
(13.0-18.0)
Hct 29.6 L %
(39.0-52.0)
MCV 96.1 H fL
(80.0-94.0)
MCH 33.8 H pg
(27.0-31.0)
Abs Immat Gran (auto) 0.1 H 10^3/uL
(0-0.05)
Absolute Monos (auto) 1.1 H 10^3/uL
(0.1-0.6)
Immature Gran % 0.6 H %
(0-0.5)
Lymphocytes % 18.0 L %
(20.5-51.1)
Monocytes % 11.1 H %
(1.7-9.3)
APTT 35.2 H Sec
(23.4-35.0)
Chloride 110 H mmol/L
(98-107)
BUN 45 H mg/dl
(9-20)
Creatinine 1.9 H mg/dL
(0.7-1.3)
Glucose 111 H mg/dl
(70-99)
Calcium 8.1 L mg/dl
(8.4-10.2)
Total Protein 5.6 L g/dl
(6.3-8.2)
Albumin 3.1 L g/dl
(3.5-5.0)
09/09/23 05:26
09/09/23 05:26
Vital Signs
Initial and Last Documented VS:
Initial Vital Signs
Pulse Ox
97
09/09/23 04:30
Last Documented Vital Signs
Temp Pulse Resp BP Pulse Ox
98.4 F 69 12 134/66 97
09/09/23 04:31 09/09/23 06:30 09/09/23 06:30 09/09/23 06:00 09/09/23 06:30
MDM/Problems Addressed
MDM/Problems Addressed:
GI bleed, colon cancer, AAA repair postop day #3
*Pulse Oximetry
Patient hypoxic: no
*EKG
Interpreted by ED Provider?: Yes
Interpretation: normal
Rate: normal
Rhythm: sinus
[place]: normal axis
QRS Pattern: normal QRS
Ischemia: no ischemia
*Caramel Candy Maker Helper Interpretation
Rate: normal
Interpretation: normal
Rhythm: sinus
*Critical Care Note
Total Time (30-74mins, 75-104mins- exclusive of procedures): 40 minutes
Data Reviewed
Review of Other/Old Records Reveals: Operative Reports (From 09/06) and Discharge Summary
Source: patient and spouse
Further Testing Considered But Not Given:
Consider CTA but given renal function hold off and consult GI
Patient Management
Discussion with other providers: Hospitalist, Layout Mechanic (Gastroenterology) and Other (Case also discussed with vascular surgery)
Escalation/DeEscalation of care consider admission/obs:
72-year-old male presents with GI bleeding 3 days after aortic aneurysm endovascular repair. Will discuss with vascular. Continue Protonix. Admit
ED Attending Note
-
Portions of this chart may have been created with voice recognition software.� Occasional wrong word or��sound alike� substitutions may have occurred due to the inherent limitations of voice recognition software.
Discharge Plan
Departure
Patient Disposition: Admit
Date of Disposition: 09/09/23
Time of Disposition: 06:52
Admit to: Telemetry
Presentation/result/management discussed w/ accepting MD/DO: Hospitalist
Discharge Problem:
Acute gastrointestinal bleeding
Prescriptions:
No Action
atorvastatin 20 mg Tablet
20 mg PO QPM
tamsulosin 0.4 mg Capsule
0.4 mg PO BID
Rx Instructions:
taken morning and night
lisinopril 10 mg Tablet
10 mg PO DAILY
finasteride 5 mg Tablet
5 mg PO QPM
oftdivtepdxg-grwgvppa-qkobsu Tablet
1 tab PO DAILY
diltiazem HCl 180 mg Tablet Extended Release 24 Hr
180 mg PO DAILY
fish,bora,flax oils-om3,6,9no1 [Triple [place] 3-6-9] 400-400-400 mg Capsule
2 cap PO DAILY
methenamine hippurate 1 gram Tablet
1 g PO BID
albuterol sulfate 90 mcg/actuation Hfa Aerosol Inhaler
1 puff INHALATION Q4H
Anoro Ellipta 62.5-25 mcg/actuation Blister With Device
2 inh INHALATION DAILY
clopidogrel 75 mg Tablet
75 mg PO DAILY Qty: 90 0RF
aspirin [Children's Aspirin] 81 mg Tablet,Chewable
81 mg PO DAILY Qty: 90 0RF
oxycodone 5 mg Tablet
5 mg PO Q4HPRN PRN (Reason: moderate pain) Qty: 4 0RF
Referrals:
Margarito Edwards MD [Family Provider] -
Interventions
Interventions:
*General Assessment Last Done: 09/09/23 06:00
*Neglect/Abuse Screening Last Done: 09/09/23 05:00
ED- Fall Risk Assessment Last Done: 09/09/23 06:00
*ED COVID-19 Vaccine History Last Done: 09/09/23 06:00
VP-Yrkpyt-Fcdduxlmvr Assessment Last Done: 09/09/23 06:27
ED- Cardiac Assessment Last Done: 09/09/23 04:30
ED- Pulmonary Assessment Last Done: 09/09/23 04:30
[2023-09-09 08:20] LABS: Lactic Acid 0.5 mmol/L (0.7-2.0)
--- NOTE | 2023-09-09 08:49 | HPS.HSE ---
Addendum entered and electronically signed by Romana Mcnamara MD 09/09/23 09:12:
anemia of chronic disease--HGB 10.4, same as at d/c--trend H&H in light of GI bleeding, may drop
Original Note:
Family Physician
-
Family Physician: Margarito Edwards
Chief Complaint
-
rectal bleeding
History of Present Illness
Patient is a 72-year-old male who had a abdominal aortic aneurysm repair this past , September 06, 2023 and was discharged Thursday, September 07, 2023 who is presenting with black followed by maroon stools. Patient states that he was constipated
from the pain medications but has taken no pain medications after he has been discharged. He did take stool softeners and on Sunday afternoon at 2 PM he started with black stools followed by maroon stools and he describes every stool since that
time as bloody. He denies significant abdominal pain but does feel sore. He denies any lightheadedness or dizziness. He does admit to some shallow breathing. Hemoglobin on admission is 10.4 which is what it was on discharge on Sunday. Patient
is being admitted.
Medical History
Past Medical History
Past Medical History: Reports Other
Additional Past Medical History:
Benign prostatic hyperplasia
'Precancerous' bladder cancer--getting BCG washes, last one was Sunday prior to his abdominal aortic aneurysm repair
Essential hypertension
Hyperlipidemia
Colon cancer with possible metastatic disease to the liver
Past Surgical History: Reports Other
Additional Past Surgical History:
Cholecystectomy 2009
Cystoscopy with bladder biopsy May 2023
Abdominal aortic aneurysm repair August 2023
Social History
Tobacco: Former Smoker (Quit 4 years ago)
Alcohol: None
Drug: None
Family History
Family History: Other (Father had multiple cancers including lymphoma)
Allergies / Home Medications
Allergies reflects when Allergies were last updated in [employer].
Home Medications with original date entered in [employer]
Allergy/Medication List:
Allergies
Allergy/AdvReac Type Severity Reaction Status Date / Time
iodine Allergy Hives Verified 09/09/23 04:30
Home Medications
atorvastatin 20 mg tablet 20 mg PO QPM High Cholesterol 04/09/23
finasteride 5 mg tablet 5 mg PO QPM Urinary Issue 04/09/23
lisinopril 10 mg tablet 10 mg PO DAILY Blood Pressure 04/09/23
tamsulosin 0.4 mg capsule 0.4 mg PO BID Urinary Issue 04/09/23
diltiazem HCl 180 mg tablet,extended release 24 hr 180 mg PO DAILY Heart Disease/Condition 05/29/23
fish, borage, flaxseed oils-omega 3,6,9 cb #1 400 mg-400 mg-400 mg cap (Triple [place] 3-6-9) 2 cap PO DAILY Supplement 05/29/23
vulrunmkzupa-njztjbfl-wbshsf tablet 1 tab PO DAILY Supplement 05/29/23
methenamine hippurate 1 gram tablet 1 g PO BID Gastrointestinal Issue 06/15/23
albuterol sulfate 90 mcg/actuation aerosol inhaler 1 puff inhalation Q4H WHEEZING 09/06/23
umeclidinium 62.5 mcg-vilanterol 25 mcg/actuation powdr for inhalation (Anoro Ellipta) 2 inh inhalation DAILY Lung/Breathing Issues 09/06/23
aspirin 81 mg chewable tablet (Children's Aspirin) 81 mg PO DAILY #90 tabs 09/07/23
clopidogrel 75 mg tablet 75 mg PO DAILY #90 tabs 09/07/23
oxycodone 5 mg tablet 5 mg PO Q4HPRN PRN moderate pain #4 tabs 09/07/23
Patient stated he does not take his albuterol nor Anora Ellipta listed on his medication list
Review of Systems
-
History Source: Patient and Family
Constitutional: Denies Fever, Weight Gain, Weight Loss or Chills
EENT: Reports No Symptoms
Respiratory: Reports Trouble Breathing (shallow)
Cardiac: Reports No Symptoms; Denies Chest Pain
Abdomen/GI: Reports Abdominal Pain ('soreness'), Bloody Stools and Black Stools
: Reports Dysuria (occasional)
Musculoskeletal: Reports No Symptoms
Skin: Reports No Symptoms
Neurological: Denies Dizzy, Headache or Weakness
Endocrine: Reports No Symptoms
Hematologic/Lymphatic: Reports No Symptoms
Psych: Reports No Symptoms
Physical Exam
Vital Signs
Vital Signs
Temp Pulse Resp BP Pulse Ox
98.6 F 70 18 136/67 95
09/09/23 07:52 09/09/23 07:00 09/09/23 07:00 09/09/23 07:00 09/09/23 07:00
Physical Exam
General: Well Developed, Well Nourished and No Apparent Distress
HEENT: NormoCephalic, Anicteric and Atraumatic; No Oxygen
Respiratory: Clear; No Wheezes, Rales, Rhonchi or Crackles
Cardiac: S1/S2 and Regular Rhythm; No Bradycardia or Tachycardia
GI: Soft, Non Distended, Normal Bowel Sounds and Tender (LLQ mostly)
Musculoskeletal: No Clubbing, No Cyanosis and No Edema
Skin: Warm and Dry
Neuro: Awake and Alert
Psych: Calm
Laboratory Results
-
09/09/23 05:26
09/09/23 05:26
Laboratory Results
PT 13.8 Sec (11.4-14.6) 09/09/23 05:26
INR 1.07 09/09/23 05:26
APTT 35.2 Sec (23.4-35.0) H 09/09/23 05:26
Lactic Acid 0.5 mmol/L (0.7-2.0) L 09/09/23 07:58
Total Bilirubin 0.8 mg/dl (0.2-1.3) 09/09/23 05:26
AST 22 U/L (17-59) 09/09/23 05:26
ALT 16 U/L (0-50) 09/09/23 05:26
Alkaline Phosphatase 103 U/L (38-126) 09/09/23 05:26
Lipase 51 U/L (23-300) 09/09/23 05:26
Impression/Plan
-
Pt is a 72 year old male
Rectal bleeding--with recent AAA repair concern for ischemic bowel/decreased blood flow to colon--lactate within normal limits--hold Plavix, continue aspirin--ADMIT to IMU--appreciate vascular input, consult GI--plan for scope today--ED started
Protonix drip, would stop as I believe this is more lower but will defer to GI--n.p.o. for now
Recent AAA repair--was discharged on aspirin and Plavix--hold Plavix--continue aspirin--appreciate vascular surgery
Acute kidney injury--creatinine at discharge was 1.6, he presents today at 1.9--continue gentle IV fluids--hold lisinopril
Colon cancer with metastatic disease--has not yet started treatment--follows with Dr. Huber
Bladder cancer--gets BCG bladder washes--follows with Dr. Fournier
Chronic obstructive pulmonary disease--patient does not use his inhalers as listed on his medication list
Essential hypertension--continue medications as able
Hyperlipidemia--continue medications as able
Benign prostatic hyperplasia--continue finasteride and tamsulosin
DVT prophylaxis--sequential teds
CODE STATUS--full code
--- NOTE | 2023-09-09 09:17 | W.PN.VS ---
Today's Communication / Plan
-
sigmoidoscopy this am
follow labs
iv hydration
Assessment/Plan
-
GI bleed p[ost FEVAR
- labs ok
- discussed with GI and primary - will perform sigmoidoscopy to eval for possible ischemia
- iv hydration (cr up slightly)
- will follow
Subjective Data
-
Date of Service: September 09, 2023
Patient presents to ER with bloody stools that started yesterday
reports slight LLQ discomfort
Objective Data
-
Vital Signs
Temp Pulse Resp BP Pulse Ox
98.6 F 76 22 155/88 97
09/09/23 07:52 09/09/23 09:00 09/09/23 09:00 09/09/23 08:00 09/09/23 09:00
Intake and Output
09/08/23 09/09/23 09/10/23
06:59 06:59 06:59
Output Total 400 / 400
Balance -400 / -400
Output:
Urine, Voided 400 / 400
Lab Results
09/09/23 05:26
09/09/23 05:26
Calcium 8.1 mg/dl (8.4-10.2) L 09/09/23 05:26
Total Bilirubin 0.8 mg/dl (0.2-1.3) 09/09/23 05:26
AST 22 U/L (17-59) 09/09/23 05:26
ALT 16 U/L (0-50) 09/09/23 05:26
Alkaline Phosphatase 103 U/L (38-126) 09/09/23 05:26
Total Protein 5.6 g/dl (6.3-8.2) L 09/09/23 05:26
Albumin 3.1 g/dl (3.5-5.0) L 09/09/23 05:26
Physical Exam
-
rrr
ctab
mild llq tenderness on deep palpation
echymosis of groins bilat
no masses or hematoma
inc c/d/i
--- NOTE | 2023-09-09 09:22 | CON.GI ---
Consultation
-
Date/Time Consultation Requested: 09/09/23 7:06am
Date/Time Consultation Performed: 09/09/23 9:22am
Requesting Provider: Cuong Schuler
Performing Provider: Alek Vang
Reason for Consultation: Rectal bleeding
Medical History
Chief Complaint / HPI
Chief Complaint: Rectal bleeding
History of Present Illness:
Patient is a 72-year-old male who presents with rectal bleeding. He recently was diagnosed with colon cancer in the proximal ascending colon with MRI showing liver mets. Prior to starting treatment for his colon cancer he required repair of his
infrarenal AAA which he had done on September 05. Following the procedure he began with rectal bleeding on Sunday. He passed multiple dark stools throughout the day. In the ER he has been passing maroon stools. He reports abdominal discomfort but
not severe. His appetite has been somewhat decreased but denies any vomiting. He was also diagnosed with bladder carcinoma in situ recently has begun BCG treatments x 3. He has met with oncology and colorectal surgery as part of his treatment
plan. Biopsy of the liver mets were attempted but unsuccessful.
Past Medical History
Past Medical History: Other (AAA, cecal cancer with liver mets, bladder CA-in-situ)
Past Surgical History: Cholecystectomy and Other (Endovascular AAA repair 09/06/23)
Social History
Tobacco: Former Smoker
Alcohol: None
Family History
Family History: Reviewed & Not Pertinent
Allergies / Home Medications
Allergy/AdvReac Type Severity Reaction Status Date / Time
iodine Allergy Hives Verified 09/09/23 04:30
Medication Instructions Recorded
atorvastatin 20 mg tablet 20 mg PO QPM High Cholesterol 04/09/23
finasteride 5 mg tablet 5 mg PO QPM Urinary Issue 04/09/23
lisinopril 10 mg tablet 10 mg PO DAILY Blood Pressure 04/09/23
tamsulosin 0.4 mg capsule 0.4 mg PO BID Urinary Issue 04/09/23
diltiazem HCl 180 mg 180 mg PO DAILY Heart 05/29/23
tablet,extended release 24 hr Disease/Condition
fish, borage, flaxseed oils-omega 2 cap PO DAILY Supplement 05/29/23
3,6,9 cb #1 400 mg-400 mg-400 mg
cap (Triple [place] 3-6-9)
epxidzdjruqh-jbtoewvu-gewfyf tablet 1 tab PO DAILY Supplement 05/29/23
methenamine hippurate 1 gram tablet 1 g PO BID Gastrointestinal Issue 06/15/23
albuterol sulfate 90 mcg/actuation 1 puff inhalation Q4H WHEEZING 09/06/23
aerosol inhaler
umeclidinium 62.5 mcg-vilanterol 2 inh inhalation DAILY 09/06/23
25 mcg/actuation powdr for Lung/Breathing Issues
inhalation (Anoro Ellipta)
aspirin 81 mg chewable tablet 81 mg PO DAILY #90 tabs 09/07/23
(Children's Aspirin)
clopidogrel 75 mg tablet 75 mg PO DAILY #90 tabs 09/07/23
oxycodone 5 mg tablet 5 mg PO Q4HPRN PRN moderate pain 09/07/23
#4 tabs
Review of Systems
-
All other systems: A 12 pt ROS was Negative except as stated above in HPI
Vital Signs
Temp Pulse Resp BP Pulse Ox
98.6 F 76 22 155/88 97
09/09/23 07:52 09/09/23 09:00 09/09/23 09:00 09/09/23 08:00 09/09/23 09:00
Physical Exam
Exam
General: No Apparent Distress
HEENT: Normocephalic and Atraumatic
GI: Soft, Non Distended and Tender (LLQ mild tenderness)
Skin: Warm and Dry
Results
WBC 9.4 10^3/uL (4.8-10.8) 09/09/23 05:26
Hgb 10.4 g/dL (13.0-18.0) L 09/09/23 05:26
Hct 29.6 % (39.0-52.0) L 09/09/23 05:26
MCV 96.1 fL (80.0-94.0) H 09/09/23 05:26
Plt Count 165 10^3/uL (130-400) 09/09/23 05:26
Absolute Neuts (auto) 6.5 10^3/uL (1.4-6.5) 09/09/23 05:26
PT 13.8 Sec (11.4-14.6) 09/09/23 05:26
INR 1.07 09/09/23 05:26
APTT 35.2 Sec (23.4-35.0) H 09/09/23 05:26
Sodium 136 mmol/L (135-145) 09/09/23 05:26
Potassium 4.7 mmol/L (3.5-5.1) 09/09/23 05:26
Chloride 110 mmol/L (98-107) H 09/09/23 05:26
Carbon Dioxide 24 mmol/L (22-30) 09/09/23 05:26
BUN 45 mg/dl (9-20) H 09/09/23 05:26
Creatinine 1.9 mg/dL (0.7-1.3) H 09/09/23 05:26
Calcium 8.1 mg/dl (8.4-10.2) L 09/09/23 05:26
Total Bilirubin 0.8 mg/dl (0.2-1.3) 09/09/23 05:26
AST 22 U/L (17-59) 09/09/23 05:26
ALT 16 U/L (0-50) 09/09/23 05:26
Alkaline Phosphatase 103 U/L (38-126) 09/09/23 05:26
Lipase 51 U/L (23-300) 09/09/23 05:26
Diagnostic Image Results:
Prior GI Procedures:
Colonoscopy:
07/09/23 COLON- Large 2/3 circumferential proximal ascending colon mass bx at least intramucosal adenocarcinoma. 8mm DC adenoma. 15mm rectosigmoid adenoma. Diverticulosis. Hemorrhoids
Assessment / Plan
-
Summary: 72yo male recently dx'd with proximal ascending colon adenocarcinoma with MRI suggesting liver mets now presents with rectal bleeding starting 09/07, multiple large dark black/maroon BMs following recent endovascular AAA repair 09/05. He was
having AAA repair done prior to starting chemotherapy for his CRC.
Impression:
Rectal bleeding
Recent AAA repair 09/05
Recent dx'd CRC with liver mets by MRI
Bladder CA in-situ s/p bCG x3
Recommendations:
Discussed with Vascular Surgery. Will proceed with flex sig to assess for ischemic changes given recent AAA repair and rectal bleeding
Protonix gtt started- cont for now, but suspect lower source for GI bleed
-
-
Thank you for consultation and allowing me to participate in the patient's care. Please call the warehouse insulation worker GI physician during the after hours with any questions or concerns.
--- NOTE | 2023-09-09 13:24 | W.PN.UPDATE ---
Update Note
Progress Note Update
Flex sig done
Blood clot and dark blood coating rectum, sigmoid and descending colon
Underlying mucosa was pink and viable
No signs of ischemic colon
Exam to the splenic flexure, 60cm
REC:
Monitor BMs, Hgb
Will follow
--- NOTE | 2023-09-09 14:30 | PTCARENOTE ---
Patient received from GI Lab. Patient AAO, VSS. No events reported during procedure. Patient on Room air. Skin intact. Admission questions answered. Oriented to room. Call khoury in reach.
[2023-09-09] MEDS: NSS 1000 IV (15:15)
[2023-09-09] MEDS: LIPITOR 20 MG PO (19:09)
[2023-09-09] MEDS: HIPREX 1 GRAM PO (19:09)
[2023-09-09] MEDS: PROSCAR 5 MG PO (19:09)
[2023-09-09] MEDS: FLOMAX 0.400000000000000022 MG PO (19:09)
[2023-09-09 20:34] LABS: Hemoglobin 9.3 g/dL (13.0-18.0)
[2023-09-10] VITALS (16 sets, daily range): BP systolic 106–173; BP diastolic 53–90; PULSE 67–86
[2023-09-10] MEDS: PROTONIX 100 IV (00:33)
[2023-09-10] MEDS: NSS 1000 IV (00:33)
--- NOTE | 2023-09-10 03:04 | PTCARENOTE ---
Recived Pt from dayshift, pleasent and AOA. Pt family at bedside. Pt free of bloody stools overnight, Pt having flatulence. Pt exhibited slight apnea and dropped down to 88% whilst sleeping, returned to 95% when awoken. Pt placed on 2LNC overnight.
No other acute changes overnight.
[2023-09-10 03:54] LABS: Hematocrit 26.3 % (39.0-52.0); Hemoglobin 9.1 g/dL (13.0-18.0)
[2023-09-10 04:06] LABS: Hematocrit 27.6 % (39.0-52.0); Hemoglobin 9.3 g/dL (13.0-18.0); Mean Corp Hgb Conc. 33.7 g/dL (33.0-37.0); Mean Corpuscular Hgb 33.3 pg (27.0-31.0); Mean Corpuscular Volume 98.9 fL (80.0-94.0); Mean Platelet Volume 9.5 fL (7.4-10.4); Platelet Count 161 10^3/uL (130-400); Red Blood Cell Count 2.79 10^6/uL (4.70-6.10); Red Cell Dist. Width 12.3 % (11.5-14.5); White Blood Cell Count 9.2 10^3/uL (4.8-10.8)
[2023-09-10 04:17] LABS: Blood Urea Nitrogen 41 mg/dl (9-20); Calcium 8.2 mg/dl (8.4-10.2); Carbon Dioxide 23 mmol/L (22-30); Chloride 107 mmol/L (98-107); Estimated Creatinine Clearance 37 ml/min; Glucose 96 mg/dl (70-99); Potassium 4.8 mmol/L (3.5-5.1); Sodium 136 mmol/L (135-145); eGFR 39.01
--- NOTE | 2023-09-10 07:46 | W.PN.VS ---
Addendum entered and electronically signed by Parminder Ortiz MD 09/10/23 12:11:
Seen and examined earlier this a.m. with WAFER FABRICATOR Maria Eugenia. Agree with findings as noted below. Well-known to me status post FEVAR last week. Came in with maroon stools/bloody stools. Sigmoidoscopy completed yesterday demonstrated no evidence of
ischemic colon. Patient currently without significant complaints. On exam/he is awake and alert. He is in no acute distress. Abdomen is soft, nondistended, nontender. Groins bilaterally with ecchymoses but no hematoma or pulsatile mass. Feet
are warm and well-perfused with left-sided 2+ DP, right-sided 2+ PT palpable. Feet are warm. Plan/as discussed and noted below. Likely GI bleeding stirred up in the setting of colon cancer and having received intraoperative heparin at the time of
the surgery. No signs of ischemic gut. Appreciate GI sigmoidoscopy by Dr. Vang. If continued bleeding and no clear source and/or abdominal pain, would consider CTA. But would favor holding off given creatinine 1.8.
Original Note:
Today's Communication / Plan
-
Seen and assessed with Dr. Ortiz
Assessment/Plan
-
GI bleed s/p FEVAR
-Hgb 9.3, Cr 1.8 (slightly better), getting hydration
-Increase diet if ok with team, patient feels he would like to attempt eating
-If no continued bleeding would hold off on CTA due to creatinine
Subjective Data
-
Date of Service: September 10, 2023
Patient seen this a.m. at bedside with Dr. Ortiz. Patient offers no complaints at this time. No events overnight. No BM since scope
Objective Data
-
Vital Signs
Temp Pulse Resp BP Pulse Ox
98.5 F 74 17 161/77 97
09/10/23 07:16 09/10/23 06:00 09/10/23 06:00 09/10/23 06:00 09/10/23 05:38
Intake and Output
09/09/23 09/10/23 09/11/23
06:59 06:59 06:59
Intake Total 1610 / 1610
Output Total 400 / 400 1750 / 1750
Balance -400 / -400 -140 / -140
Intake:
Oral fluids 50 / 50
IV fluids (Total) 320 / 320
IV piggybacks 1240 / 1240
Output:
Urine, Voided 400 / 400 1750 / 1750
Lab Results
09/10/23 03:34
Calcium 8.2 mg/dl (8.4-10.2) L 09/10/23 03:34
Total Bilirubin 0.8 mg/dl (0.2-1.3) 09/09/23 05:26
AST 22 U/L (17-59) 09/09/23 05:26
ALT 16 U/L (0-50) 09/09/23 05:26
Alkaline Phosphatase 103 U/L (38-126) 09/09/23 05:26
Total Protein 5.6 g/dl (6.3-8.2) L 09/09/23 05:26
Albumin 3.1 g/dl (3.5-5.0) L 09/09/23 05:26
Physical Exam
-
AAOx3
No tachypnea
No tachycardia
Abdomen soft, mildly tender
Bilateral feet warm and pink
--- NOTE | 2023-09-10 07:54 | W.PN.HOSP.TC ---
Today's Communication/Plan
-
see A/P
Assessment / Plan
Assessment / Plan
72-year-old male with very recent abdominal aortic aneurysm repair on September 06, 2023 and was discharged Thursday September 07, 2023; p/w black and maroon stools.� Patient states that he was constipated from the pain medications but has taken no pain
medications after he has been discharged.� He did take stool softeners and on Sunday afternoon at 2 PM he started with black stools followed by maroon/bloody stools.
A/P:
# Rectal bleeding
concern for ischemic bowel/decreased blood flow to colon, however lactate within normal limit
Hold WATCH CASER Plavix, continue aspirin
Appreciate vascular input, if no continued bleeding would hold off on CTA due to creatinine, OK to increase diet
Start clears, ADAT
Appreciate GI, s/p sigmoidoscopy, no signs of ischemic colon seen
Hold further Protonix drip per GI
# Very recent AAA repair
Pt was discharged on aspirin and Plavix, hold Plavix, continue aspirin
Vascular surgery following
# CKD stage 3
# Resolved BANDAR
Creatinine on admission at 1.9, today at 1.8, baseline at 1.6
# Colon cancer with metastatic disease, has not yet started treatment
follows with Dr. Huber
# Bladder cancer
gets BCG bladder washes
follows with Dr. Fournier
# Chronic obstructive pulmonary disease
patient does not use his inhalers as listed on his medication list
# Essential hypertension
continue WATCH CASER Cardizem
Add Coreg 3.125 BID
WATCH CASER Lisinopril on hold
# Hyperlipidemia
continue WATCH CASER Lipitor
# Benign prostatic hyperplasia
continue finasteride and tamsulosin
DVT prophylaxis: SCD
CODE STATUS: full code
DW RN
DW GI
updated daughter on the phone
total time spent 51 min
Anticipated Discharge: 24 - 48 hours
Subjective/Interval History
-
Date of Service: September 10, 2023
Objective Data
-
Labs:
Laboratory Results
09/09/23 09/10/23 09/10/23
20:28 03:34 03:34
WBC 9.2
Hgb 9.3 L 9.1 L 9.3 L
Hct 26.0 L 26.3 L
Plt Count
Sodium
Potassium
Chloride
Carbon Dioxide
BUN
Creatinine
Glucose
Calcium
09/10/23 09/10/23
03:34 08:16
WBC
Hgb Pending
Hct 27.6 L Pending
Plt Count 161
Sodium 136
Potassium 4.8
Chloride 107
Carbon Dioxide 23
BUN 41 H
Creatinine 1.8 H
Glucose 96
Calcium 8.2 L
Vital Signs:
Vital Signs
Temp Pulse Resp BP Pulse Ox
36.9 C 73 18 161/77 96
09/10/23 07:16 09/10/23 07:00 09/10/23 07:00 09/10/23 06:00 09/10/23 07:00
I&O
09/09/23 09/10/23 09/11/23
06:59 06:59 06:59
Intake Total 1610 / 1610
Output Total 400 / 400 1750 / 1750
Balance -400 / -400 -140 / -140
Review of Systems
-
All other systems: Reviewed and negative
Physical Exam
-
General: Well Developed, Well Nourished, Comfortable and Conversant
HEENT: Normocephalic, Atraumatic, Nose Appears Normal, Ears Appear Normal and Oxygen (2L NC)
Respiratory: Clear to Auscultation and Non Labored Respirations; Negative Accessory Resp Muscle Use
Cardiac: Regular Rhythm and S1/S2
GI: Soft, Nontender, Nondistended and Normal Bowel Sounds
Skin: Warm and Dry
Neuro: Awake, Alert, Oriented and AO x 3
Psych: Calm and Intact Judgement/Insight
Data Reviewed
-
Labs: Labs Reviewed by me
[2023-09-10] MEDS: LOW STRENGTH ASPIRIN 81 MG PO (08:59)
[2023-09-10] MEDS: FLOMAX 0.400000000000000022 MG PO ×2 (08:59→20:01)
[2023-09-10] MEDS: COREG 3.125 MG PO ×2 (08:59→20:01)
[2023-09-10] MEDS: HIPREX 1 GRAM PO ×2 (08:59→20:01)
[2023-09-10] MEDS: CARDIZEM CD 180 MG PO (08:59)
--- NOTE | 2023-09-10 09:01 | W.PN.GI.CBS2 ---
Today's Communication / Plan
-
No signs of ischemia on flex sig
Perhaps his known CRC bled (rec'd ASA, plavix, heparin for AAA repair 09/05) and now has stopped
Agree with clears
Hgb stable
Advance diet as tolerated
Assessment / Plan
-
Summary: 72yo male recently dx'd with proximal ascending colon adenocarcinoma with MRI suggesting liver mets now presents with rectal bleeding starting 09/07, multiple large dark black/maroon BMs following recent endovascular AAA repair 09/05. He was
having AAA repair done prior to starting chemotherapy for his CRC.
09/09/23 FLEX SIG-
Blood clot and dark blood coating rectum, sigmoid and descending colon
Underlying mucosa was pink and viable
No signs of ischemic colon
Exam to the splenic flexure, 60cm
Impression:
Rectal bleeding
Recent AAA repair 09/05
Recent dx'd CRC with liver mets by MRI
Bladder CA in-situ s/p bCG x3
Subjective
Subjective
Date of Service: September 10, 2023
No further BMs after flex sig. Denies complaints. Starting clears this am
Objective
Data Reviewed
Laboratory Data:
Laboratory Results
09/10/23 08:16
09/10/23 03:34
Laboratory Results
PT 13.8 Sec (11.4-14.6) 09/09/23 05:26
INR 1.07 09/09/23 05:26
APTT 35.2 Sec (23.4-35.0) H 09/09/23 05:26
Total Bilirubin 0.8 mg/dl (0.2-1.3) 09/09/23 05:26
AST 22 U/L (17-59) 09/09/23 05:26
ALT 16 U/L (0-50) 09/09/23 05:26
Alkaline Phosphatase 103 U/L (38-126) 09/09/23 05:26
Lipase 51 U/L (23-300) 09/09/23 05:26
Vital Signs and I&O:
Vital Signs
Temp Pulse Resp BP Pulse Ox
98.5 F 73 18 161/77 96
09/10/23 07:16 09/10/23 07:00 09/10/23 07:00 09/10/23 06:00 09/10/23 07:00
I&O
09/09/23 09/10/23 09/11/23
06:59 06:59 06:59
Intake Total 1610 / 1610
Output Total 400 / 400 1750 / 1750 200 / 200
Balance -400 / -400 -140 / -140 -200 / -200
Physical Exam
Physical Exam
GI: Soft, Non Distended and Non Tender
--- NOTE | 2023-09-10 13:10 | PTCARENOTE ---
Ambulated to bathroom, looks pale/sallow after moving around and s/o some dizziness feels 'pasty'. Sitting in recliner now and color improved, BP 118/80. Will check orthos next time.
--- NOTE | 2023-09-10 17:00 | PTCARENOTE ---
Orthostatic VS completed- 142/ 67 to 106/68 85 documented in VS flowsheet and relayed to Dr. Alarcon. IVF/ Protonix gtt completed- providers aware. Clear liquid diet- tolerated but is having liq stool after meal. Denies pain just 'discomfort'.
Will obtain stool specimen when able.
[2023-09-10] MEDS: PROSCAR 5 MG PO (17:19)
[2023-09-10] MEDS: LIPITOR 20 MG PO (17:19)
[2023-09-11] VITALS (8 sets, daily range): BP systolic 110–160; BP diastolic 57–81; PULSE 56
[2023-09-11] MEDS: TYLENOL 650 MG PO ×2 (00:20→23:19)
--- NOTE | 2023-09-11 01:49 | PTCARENOTE ---
Pt AOA, makes needs known. Pt without BM overnight. Bowl sounds normoactive, abdomen tender on palpation and rounded. Pt having flatulence. Pt 95% on RA. Lungs diminished at the bases. Pt c/o 6/10 lower back pain. This RN administered PRN Tylenol
per order. Pt resting comfortably No acute changes overnight. Call khoury in reach.
[2023-09-11 05:14] LABS: Hematocrit 27.2 % (39.0-52.0); Hemoglobin 9.4 g/dL (13.0-18.0); Mean Corp Hgb Conc. 34.6 g/dL (33.0-37.0); Mean Corpuscular Hgb 33.3 pg (27.0-31.0); Mean Corpuscular Volume 96.5 fL (80.0-94.0); Mean Platelet Volume 9.6 fL (7.4-10.4); Platelet Count 179 10^3/uL (130-400); Red Blood Cell Count 2.82 10^6/uL (4.70-6.10); Red Cell Dist. Width 11.9 % (11.5-14.5); White Blood Cell Count 8.7 10^3/uL (4.8-10.8)
[2023-09-11 06:09] LABS: Blood Urea Nitrogen 31 mg/dl (9-20); Calcium 8.1 mg/dl (8.4-10.2); Carbon Dioxide 22 mmol/L (22-30); Chloride 107 mmol/L (98-107); Estimated Creatinine Clearance 42 ml/min; Glucose 107 mg/dl (70-99); Magnesium 1.9 mg/dl (1.6-2.3); Potassium 4.3 mmol/L (3.5-5.1); Sodium 131 mmol/L (135-145); eGFR 44.93
--- NOTE | 2023-09-11 08:25 | W.PN.HOSP.TC ---
Today's Communication/Plan
-
see A/P
Assessment / Plan
Assessment / Plan
72-year-old male with very recent abdominal aortic aneurysm repair on September 06, 2023 and was discharged Thursday September 07, 2023; p/w black and maroon stools.� Patient states that he was constipated from the pain medications but has taken no pain
medications after he has been discharged.� He did take stool softeners and on Sunday afternoon at 2 PM he started with black stools followed by maroon/bloody stools.
A/P:
# Rectal bleeding, concern for ischemic bowel/decreased blood flow to colon
however lactate within normal limit
Hold INSPECTOR HAIRSPRING Plavix, continue aspirin
Appreciate vascular input, if no continued bleeding would hold off on CTA due to creatinine
Appreciate GI, s/p sigmoidoscopy, no signs of ischemic colon seen
clears -> low darion diet, monitor for tolerance
Off Protonix drip per GI
# Very recent AAA repair
Pt was discharged on aspirin and Plavix, continue aspirin and cont to hold Plavix
Vascular surgery on board
# CKD stage 3
# Resolved BANDAR
Creatinine on admission at 1.9, today at 1.6, baseline at 1.6
# Colon cancer with metastatic disease, has not yet started treatment
follows with Dr. Huber
# Bladder cancer
gets BCG bladder washes
follows with Dr. Fournier
# Chronic obstructive pulmonary disease
patient does not use his inhalers as listed on his medication list
# Essential hypertension
continue INSPECTOR HAIRSPRING Cardizem
Added Coreg 3.125 BID
INSPECTOR HAIRSPRING Lisinopril on hold
# Hyperlipidemia
continue INSPECTOR HAIRSPRING Lipitor
# Benign prostatic hyperplasia
continue finasteride and tamsulosin
DVT prophylaxis: SCD
CODE STATUS: full code
Dispo: PT OT eval
DW RN
DW GI / Vascular, plan is to cont to hold Plavix going forward
updated daughter on the phone
Anticipated Discharge: Within 24 hours
Subjective/Interval History
-
Date of Service: September 11, 2023
Objective Data
-
Labs:
Laboratory Results
09/11/23
04:42
WBC 8.7
Hgb 9.4 L
Hct 27.2 L
Plt Count 179
Sodium 131 L
Potassium 4.3
Chloride 107
Carbon Dioxide 22
BUN 31 H
Creatinine 1.6 H
Glucose 107 H
Calcium 8.1 L
Vital Signs:
Vital Signs
Temp Pulse Resp BP Pulse Ox
36.7 C 49 12 160/81 96
09/11/23 04:00 09/11/23 06:00 09/11/23 06:00 09/11/23 06:00 09/10/23 22:00
I&O
09/10/23 09/11/23 09/12/23
06:59 06:59 06:59
Intake Total 1610 / 1610 1280 / 1280
Output Total 1750 / 1750 2400 / 2400
Balance -140 / -140 -1120 / -1120
Review of Systems
-
All other systems: Reviewed and negative
[2023-09-11] MEDS: LOW STRENGTH ASPIRIN 81 MG PO (09:05)
[2023-09-11] MEDS: COREG 3.125 MG PO ×2 (09:05→19:51)
[2023-09-11] MEDS: HIPREX 1 GRAM PO ×2 (09:06→19:51)
[2023-09-11] MEDS: CARDIZEM CD PO ×2 (09:06→09:15)
[2023-09-11] MEDS: FLOMAX 0.400000000000000022 MG PO ×2 (09:06→19:52)
--- NOTE | 2023-09-11 09:22 | W.PN.VS ---
Addendum entered and electronically signed by Logan Umanzor III, MD 09/11/23 13:42:
This patient was seen and examined with BRADY Melgoza. I agree with the history and physical exam as well as the assessment and plan.
Signed:
Logan Umanzor III, MD
[facility]
[phone] (cell)
Original Note:
Today's Communication / Plan
-
Patient seen and examined at bedside with Dr. Logan Umanzor III, below plan reviewed with attending
Assessment/Plan
-
GI bleed s/p FEVAR
-Hgb 9.4, Cr 1.6 (baseline)
-Patient with diet advanced to cholesterol-lowering as he tolerated clears yesterday
-Patient continues to have stable hemoglobin with no reports of worsening bloody bowel movements will continue to hold off on CTA
-Plavix currently on hold, continue aspirin 81 mg p.o. daily
-Appreciate consultants
Subjective Data
-
Date of Service: September 11, 2023
Patient seen and examined at bedside, reports 2 bowel movements yesterday that he indicates are markedly improved from prior to admission in regards to maroon color and frequency. Denies nausea, vomiting, fever, and chills. He is tolerating clear
liquid diet.
Objective Data
-
Vital Signs
Temp Pulse Resp BP Pulse Ox
98.1 F 58 12 160/81 96
09/11/23 04:00 09/11/23 09:15 09/11/23 06:00 09/11/23 06:00 09/10/23 22:00
Intake and Output
09/10/23 09/11/23 09/12/23
06:59 06:59 06:59
Intake Total 1610 / 1610 1280 / 1280
Output Total 1750 / 1750 2400 / 2400
Balance -140 / -140 -1120 / -1120
Intake:
Oral fluids 50 / 50 1280 / 1280
IV fluids (Total) 320 / 320
IV piggybacks 1240 / 1240
Output:
Urine, Voided 1750 / 1750 240 / 240
Other:
Number of approximated MODERATE 2
amounts of urine
Number of unmeasured liquid
stools
Rectum 3
Lab Results
09/11/23 04:42
09/11/23 04:42
Calcium 8.1 mg/dl (8.4-10.2) L 09/11/23 04:42
Magnesium 1.9 mg/dl (1.6-2.3) 09/11/23 04:42
Total Bilirubin 0.8 mg/dl (0.2-1.3) 09/09/23 05:26
AST 22 U/L (17-59) 09/09/23 05:26
ALT 16 U/L (0-50) 09/09/23 05:26
Alkaline Phosphatase 103 U/L (38-126) 09/09/23 05:26
Total Protein 5.6 g/dl (6.3-8.2) L 09/09/23 05:26
Albumin 3.1 g/dl (3.5-5.0) L 09/09/23 05:26
Physical Exam
-
AAOx3
No tachypnea
No tachycardia
Abdomen soft, nondistended, nontender
Bilateral groin sites CDI, all compartments soft, no evidence of hematoma
Bilateral feet warm and pink
--- NOTE | 2023-09-11 09:24 | W.PN.GI.CBS2 ---
Addendum entered and electronically signed by Nikolas Lang MD 09/11/23 13:32:
I saw and examined the patient.
The CARDIOPULMONARY SUPERVISOR or PA's note was reviewed and I agree with the note.
Comment: 72 yo M pmh ascending colon adenoCa with liver mets and bladder ca s/p recent AAA repair 09/05 GI consulted for lower GI bleed underwent flex sig 09/08 no etiology found thought likely to be due to ascending colon mass.
I d/w vascular surgery and hospitalist today- plan to continue ASA 81 mg and hold plavix.
I updated oncologist Dr. Huber as well.
Diet advanced today.
GI will sign off please call with ?s.
Original Note:
Today's Communication / Plan
-
Advance diet
Okay per GI for aspirin and Plavix
GI signing off
Assessment / Plan
-
Summary: 72yo male recently dx'd with proximal ascending colon adenocarcinoma with MRI suggesting liver mets now presents with rectal bleeding starting 09/07, multiple large dark black/maroon BMs following recent endovascular AAA repair 09/05. He was
having AAA repair done prior to starting chemotherapy for his CRC.
09/09/23 FLEX SIG-
Blood clot and dark blood coating rectum, sigmoid and descending colon
Underlying mucosa was pink and viable
No signs of ischemic colon
Exam to the splenic flexure, 60cm
Impression:
Rectal bleeding
Recent AAA repair 09/05
Recent dx'd CRC with liver mets by MRI
Bladder CA in-situ s/p bCG x3
Plan:
-Advance diet, solid. Discussed with internal medicine attending who will advance to appropriate diet.
-Okay per GI for aspirin and Plavix, no signs of ischemia on flex sig.
-Patient to follow-up as an outpatient to start chemotherapy for colorectal cancer.
-Please call back if we can be of further assistance. GI signing off.
Subjective
Subjective
Date of Service: September 11, 2023
Patient without any GI complaints. Had 2 brown bowel movements in the past 24 hours. Hemoglobin is currently 9.4 up from 9.3 yesterday. Discussed with internal medicine attending okay to resume aspirin and Plavix. Also okay to resume solid diet.
Patient tolerating liquids without any difficulty. Patient is eager to eat solid diet.
Objective
Data Reviewed
Laboratory Data:
Laboratory Results
09/11/23 04:42
09/11/23 04:42
Laboratory Results
PT 13.8 Sec (11.4-14.6) 09/09/23 05:26
INR 1.07 09/09/23 05:26
APTT 35.2 Sec (23.4-35.0) H 09/09/23 05:26
Magnesium 1.9 mg/dl (1.6-2.3) 09/11/23 04:42
Total Bilirubin 0.8 mg/dl (0.2-1.3) 09/09/23 05:26
AST 22 U/L (17-59) 09/09/23 05:26
ALT 16 U/L (0-50) 09/09/23 05:26
Alkaline Phosphatase 103 U/L (38-126) 09/09/23 05:26
Lipase 51 U/L (23-300) 09/09/23 05:26
Vital Signs and I&O:
Vital Signs
Temp Pulse Resp BP Pulse Ox
98.1 F 58 12 160/81 96
09/11/23 04:00 09/11/23 09:15 09/11/23 06:00 09/11/23 06:00 09/10/23 22:00
I&O
09/10/23 09/11/23 09/12/23
06:59 06:59 06:59
Intake Total 1610 / 1610 1280 / 1280
Output Total 1750 / 1750 2400 / 2400
Balance -140 / -140 -1120 / -1120
Physical Exam
Physical Exam
HEENT: Anicteric
Cardiology: Normal Sinus Rhythm
Pulmonary: Clear (Anterior)
GI: Soft, Non Distended, Non Tender and Normal Bowel Sounds
Neuro: Non Focal
--- NOTE | 2023-09-11 10:28 | PTOTSP ---
The patient is independent with mobility within the room, denied the need for PT while hospitalized and anticipates return home (with daughter) when discharged. PT will sign off at this time - patient is aware our services are available if needs
arise.
--- NOTE | 2023-09-11 10:42 | PN.CDI ---
CDI
- -
CDI:
Physician Documentation Request
Admit Date: 09/09/23 09:21
Dear Doctor Agnes,
Clinical Indicators:
Patient admitted with rectal bleeding; s/p abdominal aortic aneurysm repair on September 06, 2023.
Home medications include: Plavix 75 mg tablet 75 mg PO DAILY; held since admission.
09/09 Vascular PN,' Likely GI bleeding stirred up in the setting of colon cancer and having received intraoperative heparin at the time of the surgery'
09/09 GI PN, 'Perhaps his known CRC bled (rec'd ASA, plavix, heparin for AAA repair 09/05) and now has stopped.'
Please clarify if there is a the relationship between the rectal bleeding and the above medication usage:
Yes, rectal bleeding is related to/associated with/exacerbated by Plavix/Heparin use.
No, rectal bleeding is not related to/associated with/exacerbated by Plavix/Heparin but it is due to ___. (Please specify)
Unable to determine
Use of terms such as suspected, likely, concern for, or probable (associated with a specific diagnosis that is being evaluated, monitored, or treated as if it exists) are acceptable and can be coded in the inpatient setting, when documented at the
time of discharge.
Thank you,
MANUEL Barreto RN
CDI Specialist
available via tiger text
Please use your independent medical judgment in providing your response.
--- NOTE | 2023-09-11 10:49 | PN.CDI ---
CDI
- -
CDI:
Physician Documentation Request
Admit Date: 09/09/23 09:21
Dear Doctor Agnes,
Clinical Indicators:
Patient admitted with rectal bleeding; s/p abdominal aortic aneurysm repair on September 06, 2023.
09/08 H & P, 'anemia of chronic disease--HGB 10.4, same as at d/c--trend H&H in light of GI bleeding, may drop.'
09/09 (13:10) RN note, 'Ambulated to bathroom, looks pale/sallow after moving around and s/o some dizziness feels 'pasty'.'
Hgb/Hct trend:
09/09/23 09/09/23 09/10/23
05:26 20:28 03:34
Hgb 10.4 L 9.3 9.1 L
Hct 29.6 L 26.0 L 26.3 L
Based on the above, could you clarify, in your progress note, which of the following is the most likely type of anemia you are evaluating, monitoring and/or treating?
Anemia, multifactorial due to acute blood loss and chronic disease.
Anemia of chronic disease only
Other, please specify
Use of terms such as suspected, likely, concern for, or probable (associated with a specific diagnosis that is being evaluated, monitored, or treated as if it exists) are acceptable and can be coded in the inpatient setting, when documented at the
time of discharge.
Thank you,
MANUEL Barreto RN
CDI Specialist
available via tiger text
Please use your independent medical judgment in providing your response.
--- NOTE | 2023-09-11 11:07 | PTCARENOTE ---
SR 58 on tele this am, PO Cardizem held for parameters HR<60.
--- NOTE | 2023-09-11 12:58 | CM ---
Patient with recent admit for AAA repair with Dx Rectal bleeding s/p sigmoidoscopy. Room air. Low residue diet. PT & OT Evals; No skilled PT/OT needed.
Met with patient and his sheila Mcclelland;
the patient resides alone in a 1 story house with 3 CK.
He discharged to home on 09/06 to [facility] and will be returning there on this discharge.
He has been independent in ADLs and ambulation.
He has no DME, prior VN or SNF.
PCP - Margarito Edwards
Pharmacy - daughter requested pharmacy updated [facility]
Patient thinks he may be discharged by tomorrow. IMM completed.
No CM d/c needs identified.
Plan home to daughter's house
[2023-09-11] MEDS: PROSCAR 5 MG PO (17:52)
[2023-09-11] MEDS: LIPITOR 20 MG PO (17:52)
--- NOTE | 2023-09-11 19:36 | PTCARENOTE ---
Ambulating more in room today. No stool today- no specimen obtained. Tolerating po diet. Remains SR/SB on tele.
--- NOTE | 2023-09-11 19:57 | PTCARENOTE ---
Received pt at change of shift. Pt offers no complaints. VSS at this time. Lungs are CTA but diminished throughout. No signs of rectal bleeding. No BM today. Pt being transferred to rm 2128. pt resting in bed with call khoury in reach.
--- NOTE | 2023-09-11 22:52 | PTCARENOTE ---
Patient arrived from IMU via wheelchair at approximately 2200. Patient ambulated from wheelchair to bed standby assist. Patient AAOx3. VSS as documented. Assessment as documented. Patient oriented to room. Bed in lowest position. Call khoury within
reach.
[2023-09-12 03:23] VITALS: BP 127/59
[2023-09-12 06:10] LABS: Hemoglobin 9.5 g/dL (13.0-18.0); Mean Corp Hgb Conc. 35.2 g/dL (33.0-37.0); Mean Corpuscular Hgb 33.5 pg (27.0-31.0); Mean Corpuscular Volume 95.1 fL (80.0-94.0); Mean Platelet Volume 9.3 fL (7.4-10.4); Platelet Count 218 10^3/uL (130-400); Red Blood Cell Count 2.84 10^6/uL (4.70-6.10); White Blood Cell Count 8.8 10^3/uL (4.8-10.8)
[2023-09-12 06:40] LABS: Blood Urea Nitrogen 33 mg/dl (9-20); Calcium 8.6 mg/dl (8.4-10.2); Carbon Dioxide 24 mmol/L (22-30); Chloride 102 mmol/L (98-107); Estimated Creatinine Clearance 39 ml/min; Glucose 110 mg/dl (70-99); Potassium 4.1 mmol/L (3.5-5.1); Sodium 134 mmol/L (135-145); eGFR 41.78
[2023-09-12 07:46] VITALS: BP 130/65
[2023-09-12] MEDS: CARDIZEM CD 180 MG PO (08:12)
[2023-09-12] MEDS: LOW STRENGTH ASPIRIN 81 MG PO (08:12)
[2023-09-12] MEDS: COREG 3.125 MG PO (08:12)
[2023-09-12] MEDS: FLOMAX 0.400000000000000022 MG PO (08:12)
[2023-09-12] MEDS: HIPREX 1 GRAM PO (08:12)
--- NOTE | 2023-09-12 10:17 | W.PN.VS ---
Addendum entered and electronically signed by Parminder Ortiz MD 09/12/23 11:30:
Seen and examined with ALANNA Epps. Agree with findings as noted below. Has not had any further bowel movements (nothing bloody certainly). Abdomen soft, nondistended, nontender. Groins flat. Ecchymosis unchanged. Small incisions clean dry and
intact bilaterally. Feet are warm with 2+ palpable right PT, 2+ left DP. Hemoglobin 9.5, creatinine 1.7. Plan/as discussed and noted below. Okay to discontinue Plavix given concerns for bleeding. Continue aspirin 81 mg daily.
Original Note:
Today's Communication / Plan
-
Patient seen and examined at bedside with Dr. Parminder Ortiz, below plan reviewed with attending.
Assessment/Plan
-
GI bleed s/p FEVAR
-Hgb 9.5, Cr 1.7 (baseline)
-Patient tolerating diet
-Patient continues to have stable hemoglobin with no reports of ongoing bloody bowel movements will continue to hold off on CTA
-Will continue to hold plavix and for discharge, continue aspirin 81 mg p.o. daily
-F/u placed in discharge instructions
Subjective Data
-
Date of Service: September 12, 2023
Patient seen and examined at bedside, offers no complaints. Denies additional BMs, tolerating PO diet. Denies nausea, vomiting, fever, and chills.
Objective Data
-
Vital Signs
Temp Pulse Resp BP Pulse Ox
97.9 F 65 17 130/65 98
09/12/23 07:46 09/12/23 07:46 09/12/23 07:46 09/12/23 07:46 09/12/23 07:46
Intake and Output
09/11/23 09/12/23 09/13/23
06:59 06:59 06:59
Intake Total 1280 / 1280 800 / 800
Output Total 2400 / 2400 1050 / 1050
Balance -1120 / -1120 -250 / -250
Intake:
Oral fluids 1280 / 1280 800 / 800
Output:
Urine, Voided 2400 / 2400 1050 / 1050
Other:
Number of approximated MODERATE 2 2
amounts of urine
Number of unmeasured liquid
stools
Rectum 3
Lab Results
09/12/23 05:30
09/12/23 05:30
Calcium 8.6 mg/dl (8.4-10.2) 09/12/23 05:30
Magnesium 1.9 mg/dl (1.6-2.3) 09/11/23 04:42
Total Bilirubin 0.8 mg/dl (0.2-1.3) 09/09/23 05:26
AST 22 U/L (17-59) 09/09/23 05:26
ALT 16 U/L (0-50) 09/09/23 05:26
Alkaline Phosphatase 103 U/L (38-126) 09/09/23 05:26
Total Protein 5.6 g/dl (6.3-8.2) L 09/09/23 05:26
Albumin 3.1 g/dl (3.5-5.0) L 09/09/23 05:26
Physical Exam
-
AAOx3
No tachypnea
No tachycardia
Abdomen soft, nondistended, nontender
Bilateral groin sites CDI, all compartments soft, no evidence of hematoma
Bilateral feet warm and pink, BP DP +1
[2023-09-12 11:08] VITALS: BP 123/65
--- NOTE | 2023-09-12 11:30 | W.PN.HOSP.TC ---
Addendum entered and electronically signed by Jaqueline Alarcon MD 09/12/23 15:57:
# Anemia, multifactorial due to acute blood loss and chronic disease.
# rectal bleeding is related to/associated with/exacerbated by Plavix
Addendum entered and electronically signed by Jaqueline Alarcon MD 09/12/23 15:56:
Total DC time 35 minutes
Original Note:
Today's Communication/Plan
-
see A/P
Assessment / Plan
Assessment / Plan
72-year-old male with very recent abdominal aortic aneurysm repair on September 06, 2023 and was discharged Thursday September 07, 2023; p/w black and maroon stools.� Patient states that he was constipated from the pain medications but has taken no pain
medications after he has been discharged.� He did take stool softeners and on Sunday afternoon at 2 PM he started with black stools followed by maroon/bloody stools.
A/P:
# Rectal bleeding, concern for ischemic bowel/decreased blood flow to colon
however lactate within normal limit
Hold CHILD CARE Plavix going forward, continue aspirin
Appreciate GI, s/p sigmoidoscopy, no signs of ischemic colon seen
clears -> low darion diet, pt tolerated well
Off Protonix drip per GI
# Very recent AAA repair
Pt was discharged on aspirin and Plavix, continue aspirin and cont to hold Plavix
Vascular surgery on board
# CKD stage 3
# Resolved BANDAR
Creatinine on admission at 1.9, today at 1.7, baseline at 1.6
# Colon cancer with metastatic disease, has not yet started treatment
follows with Dr. Huber
# Bladder cancer
gets BCG bladder washes
follows with Dr. Fournier
# Chronic obstructive pulmonary disease
patient does not use his inhalers as listed on his medication list
# Essential hypertension
continue CHILD CARE Cardizem
Added Coreg 3.125 BID
CHILD CARE Lisinopril on hold
# Hyperlipidemia
continue CHILD CARE Lipitor
# Benign prostatic hyperplasia
continue finasteride and tamsulosin
DVT prophylaxis: SCD
CODE STATUS: full code
Dispo: PT OT eval : no skilled needed
DW RN
DW GI / Vascular, plan is to cont to hold Plavix going forward
updated daughter art bedside
DW RN
Anticipated Discharge: Today
Subjective/Interval History
-
Date of Service: September 12, 2023
Objective Data
-
Labs:
Laboratory Results
09/12/23
05:30
WBC 8.8
Hgb 9.5 L
Hct 27.0 L
Plt Count 218 D
Sodium 134 L
Potassium 4.1
Chloride 102
Carbon Dioxide 24
BUN 33 H
Creatinine 1.7 H
Glucose 110 H
Calcium 8.6
Vital Signs:
Vital Signs
Temp Pulse Resp BP Pulse Ox
36.6 C 64 17 123/65 100
09/12/23 11:08 09/12/23 11:08 09/12/23 11:08 09/12/23 11:08 09/12/23 11:08
I&O
09/11/23 09/12/23 09/13/23
06:59 06:59 06:59
Intake Total 1280 / 1280 800 / 800
Output Total 2400 / 2400 1050 / 1050
Balance -1120 / -1120 -250 / -250
Review of Systems
-
All other systems: Reviewed and negative
Physical Exam
-
General: Well Developed, Well Nourished, Comfortable and Conversant
HEENT: Normocephalic, Atraumatic, Nose Appears Normal and Ears Appear Normal; Negative Oxygen
Respiratory: Clear to Auscultation and Non Labored Respirations; Negative Accessory Resp Muscle Use
Cardiac: Regular Rhythm and S1/S2
GI: Soft, Nontender, Nondistended and Normal Bowel Sounds
Skin: Warm and Dry
Neuro: Awake, Alert, Oriented and AO x 3
Psych: Calm and Intact Judgement/Insight
Data Reviewed
-
Labs: Labs Reviewed by me
--- NOTE | 2023-09-12 12:01 | CM ---
Patient has been medically cleared for discharge to his daughter's home ([facility]) with no additional skilled services. Daughter, Gali, will transport home.
--- NOTE | 2023-09-12 15:32 | W.DCSUMMARY ---
Discharge Summary
Discharge Data
Date of Admission: 09/09/23
Date of Discharge: 09/12/23
-
Pending Results: No
Hospital Course
Principal Diagnosis:
Rectal bleeding, unclear cause, but ruled out ischemic colon
Resolved acute kidney injury
Chronic Diagnoses:�
Recent abdominal aortic aneurysm repair
Chronic kidney disease stage III
Colon cancer with metastatic disease, has not yet started treatment, follows with Dr. Huber
Bladder cancer, gets BCG bladder washes, follows with Dr. Fournier
Chronic obstructive pulmonary disease
Essential hypertension
Hyperlipidemia on Lipitor
Benign prostatic hyperplasia on finasteride and tamsulosin
Consultations:�
Vascular surgery
Gastroenterology
Procedures:�
Colonoscopy
Clinical course:�
72-year-old male with very recent abdominal aortic aneurysm repair on September 06, 2023 and was discharged Thursday September 07, 2023, who presented with black and maroon stools.�
Problem 1:
Rectal bleeding, unclear cause, but ruled out ischemic colon.
His prior to admission Plavix was stopped this admission, and he was informed to continue to hold off on Plavix going forward.
He can continue with aspirin.
The patient underwent sigmoidoscopy, which noted clotted blood in the rectum, sigmoid colon and descending colon; however the rectum, sigmoid colon and descending colon appeared normal.
Problem 2:
Essential hypertension.
In addition to continuing his prior to admission Cardizem, Coreg 3.125 twice daily was added this admission which he can continue going forward.
His prior to admission lisinopril was discontinued due to BANDAR (his creatinine down trended from 1.9 to 1.7).
As for the rest of his medical problems, they were stable during his hospital stay.
Discharge Plan
-
Patient Disposition: Home with Home Care
Condition: Fair
Diet: As tolerated
Activity: As tolerated
Driving Restrictions: As prior to admission
Referrals:
Nell Lockhart PA-C [Specified Professional Personl] - 09/20/23 10:30 am
Margarito Edwards MD [Family Provider] - in less than 1 week
Additional Discharge Medication Instructions: Stop Plavix and lisinopril
Take Coreg for blood pressure
Prescriptions:
New
carvedilol 3.125 mg Tablet
3.125 mg PO BID Qty: 60 0RF
Continued
atorvastatin 20 mg Tablet
20 mg PO QPM
tamsulosin 0.4 mg Capsule
0.4 mg PO BID
Rx Instructions:
taken morning and night
finasteride 5 mg Tablet
5 mg PO QPM
zbxejwkbssim-puwleyiv-rvenok Tablet
1 tab PO DAILY
diltiazem HCl 180 mg Tablet Extended Release 24 Hr
180 mg PO DAILY
fish,bora,flax oils-om3,6,9no1 [Triple [place] 3-6-9] 400-400-400 mg Capsule
2 cap PO DAILY
methenamine hippurate 1 gram Tablet
1 g PO BID
albuterol sulfate 90 mcg/actuation Hfa Aerosol Inhaler
1 puff INHALATION Q4H
Anoro Ellipta 62.5-25 mcg/actuation Blister With Device
2 inh INHALATION DAILY
aspirin [Children's Aspirin] 81 mg Tablet,Chewable
81 mg PO DAILY Qty: 90 0RF
oxycodone 5 mg Tablet
5 mg PO Q4HPRN PRN (Reason: moderate pain) Qty: 4 0RF
Discontinued
lisinopril 10 mg Tablet
10 mg PO DAILY
clopidogrel 75 mg Tablet
75 mg PO DAILY Qty: 90 0RF
Discharge Orders:
Discharge Patient (As Directed); Ordered 09/12/23
Ordered By: Jaqueline Alarcon
Discharge Date and Time
Discharge Date/Time: 09/12/23 13:39
== END 2023-09-12 13:39 | disposition home or self-care (01) | DRG 813 ==
LOC: 2 NORTH 09:21
PROVIDERS: Student in an Organized Health Care Education/Training Program; ADMITTING PHYSICIAN Internal Medicine; ATTENDING PHYSICIAN Internal Medicine; CONSULT PHYSICIAN Specialist; EMERGENCY PHYSICIAN Emergency Medicine; FAMILY PHYSICIAN Family Medicine
PROC: 0DJD8ZZ Inspection of Lower Intestinal Tract, Via Natural or Artificial Opening Endoscopic (ICD-10-PCS; 2023-09-09)
DX: D68.32 Hemorrhagic disorder due to extrinsic circulating anticoagulants (principal); K92.2 Gastrointestinal hemorrhage, unspecified; C78.7 Secondary malignant neoplasm of liver and intrahepatic bile duct; N17.9 Acute kidney failure, unspecified; D62 Acute posthemorrhagic anemia; Z87.891 Personal history of nicotine dependence; D63.8 Anemia in other chronic diseases classified elsewhere; C67.9 Malignant neoplasm of bladder, unspecified; J44.9 Chronic obstructive pulmonary disease, unspecified; N18.30 Chronic kidney disease, stage 3 unspecified; I12.9 Hypertensive chronic kidney disease with stage 1 through stage 4 chronic kidney disease, or unspecified chronic kidney disease; N40.0 Benign prostatic hyperplasia without lower urinary tract symptoms; E78.00 Pure hypercholesterolemia, unspecified; Z79.82 Long term (current) use of aspirin; Z79.02 Long term (current) use of antithrombotics/antiplatelets
CPT/HCPCS: 80048; 80053; 83605; 83690; 83735; 85014; 85018; 85025; 85027; 85610; 85730; 93005; 96374; 97162; 97165; 99291

== ENCOUNTER → 2023-09-25 07:29 | Outpatient (REF) | payer MEDICARE, OTHER, SELFPAY ==
[2023-09-25 07:50] VITALS: BP 176/72; BP_SYST 53
[2023-09-25] MEDS: ANCEF 10 IV (08:33)
[2023-09-25 09:49] VITALS: BP 142/86
== END ==
LOC: RADI 07:29
PROVIDERS: ATTENDING PHYSICIAN Internal Medicine Hematology & Oncology; FAMILY PHYSICIAN Family Medicine
DX: C18.9 Malignant neoplasm of colon, unspecified (principal)
CPT/HCPCS: 36561; 76937; 77001; 99152; 99153; C1788

== ENCOUNTER 2023-10-19 03:51 | Observation (INO) | payer MEDICARE, OTHER, SELFPAY ==
[2023-10-19] VITALS (15 sets, daily range): BP systolic 134–188; BP diastolic 71–129; PULSE 58–65; O2SAT 96–99; BMI 29.0; BMI 30.5
--- NOTE | 2023-10-19 00:31 | ED.GENMED ---
History of Present Illness
General
Chief Complaint: Weakness
Source: patient and family
Exam Limitations: none
Time Seen by Provider: 10/19/23 00:27
Travel History
Have you had any contact with someone who has COVID-19?: No
Do you have any symptoms of coronavirus? Fever > 100 degrees, chills, cough, shortness of breath, sore throat, loss of taste or smell, muscle aches, or headache?: No
History of Present Illness
History of Present Illness:
See MDM
Past History
Past History
ED Past Medical History: Cancer (Colon cancer), HTN, Hypercholesterolemia, Other (AAA) and Other (BPH/prostatitis)
ED Past Surgical History: Cholecystectomy and Tonsilectomy
Social History
Tobacco: Former smoker
Alcohol: None
Drug: None
Personal:
Living: with family
Phy Exam
Physical Exam
Physical Exam:
See MDM
Course
Orders/Labs/Results
Orders:
Orders
10/19/23 00:23
ECG [Electrocardiogram (*1)] Urgent
Reason for Study: Fatigue / Weakness
Cardiology Consult: Unknown
10/19/23 00:24
Urinalysis Reflex To Culture Urgent
Date Specimen was Collected: 10/19/23
Time Specimen was Collected: 00:24
10/19/23 00:41
Electrocardiogram (*1) Urgent
Reason for Study: Chest Pain
EKG- Treatment ONCE
0.9% Sodium Chloride 1000 ml [Nss] 1,000 ml IV BOLUS
10/19/23 01:03
Type+Screen Urgent
Complete Blood Count/With Diff Urgent
Comprehensive Metabolic Panel Urgent
Lactic Acid Urgent
Magnesium Urgent
Manual Differential Urgent
10/19/23 01:22
Famotidine [Pepcid] 20 mg IV NOW STA
10/19/23 01:23
Ketorolac [Toradol] 30 mg IV NOW STA
10/19/23 01:51
Potassium Chloride Powder [Klor-Con] 40 meq PO NOW STA
Abnormal Lab Results
10/19/23
01:03
WBC 3.1 L 10^3/uL
(4.8-10.8)
RBC 2.65 L 10^6/uL
(4.70-6.10)
Hgb 8.5 L g/dL
(13.0-18.0)
Hct 24.3 L %
(39.0-52.0)
MCH 32.1 H pg
(27.0-31.0)
Plt Count 109 L 10^3/uL
(130-400)
Abs Neuts (Manual) 0.4 L* 10^3/uL
(1.4-6.5)
Segmented Neutrophils 14 L %
(42-75)
Lymphocytes (Manual) 60 H %
(20-51)
Monocytes (Manual) 24 H %
(2-9)
Sodium 129 L mmol/L
(135-145)
Potassium 3.1 L mmol/L
(3.5-5.1)
Glucose 122 H mg/dl
(70-99)
Calcium 8.0 L mg/dl
(8.4-10.2)
Alkaline Phosphatase 159 H U/L
(38-126)
Total Protein 5.4 L g/dl
(6.3-8.2)
Albumin 3.1 L g/dl
(3.5-5.0)
10/19/23 01:03
10/19/23 01:03
Vital Signs
Initial and Last Documented VS:
Initial Vital Signs
Temp Pulse Resp BP Pulse Ox
98.2 F 65 20 134/83 97
10/19/23 00:20 10/19/23 00:20 10/19/23 00:20 10/19/23 00:20 10/19/23 00:20
Last Documented Vital Signs
Temp Pulse Resp BP Pulse Ox
98.2 F 65 20 134/83 97
10/19/23 00:20 10/19/23 00:20 10/19/23 00:20 10/19/23 00:20 10/19/23 00:20
MDM/Problems Addressed
Differential Diagnosis Includes:
HPI and MDM Narrative:
73-year-old male presenting for evaluation of generalized weakness and fatigue. Patient believes that he is dehydrated. He complains of generalized muscle twitching and muscle aches. Patient recently had aortic arch repair. He developed GI
bleeding after the event but it stabilized. He denies black or red stools. He is on aspirin daily. Patient is being treated for colon cancer. He had a recent infusion last week.
On exam, patient looks somewhat pale but patient has a history of chronic anemia. He denies chest pain or shortness of breath. Will start with IV fluids and obtain basic blood work
Physical exam
General: Weak and fatigued
HEENT: protecting airway. Dry mucous membranes
Neck: appears supple
CV: No evidence of cyanosis. Regular rate and rhythm
Resp: No accessory muscle use
Abd: Non-distended
Extremities: No deformities. +2 pulses distally in all 4 extremities
Neuro: alert
Psych: Normal affect
Skin: Pale
Problems Addressed including Acute and Chronic Conditions affecting care:
1. Generalized weakness
Acuity: acute
Prognosis: stable
Details: Likely in setting of dehydration. Will give IV fluids and obtain basic blood
2. Neutropenia
Acuity: acute
Prognosis: unstable
Details: Patient has remained afebrile
3. Hypokalemia
Acuity: acute
Prognosis: stable
Details: Will replete orally
4. Hyponatremia
Acuity: acute
Prognosis: stable
Details: Will continue IV fluid
Updates
Given his neutropenia and dehydration and persistent symptoms, will continue IV fluids, replete potassium and admit
Differential Diagnosis (but not limited to): Dehydration, chemotherapeutic side effect
Testing considered: CTA chest
Drug therapy (if applicable): OTC meds, please see d/c instruction regarding Rx drugs
Amount and/or Complexity of Data Reviewed
Clinical info obtained from: Patient
External data reviewed: N/A
Labs I independently reviewed (but not limited to): Sodium 129, neutropenia
Radiology: N/A
Pulse Ox: not hypoxic
EKG independently reviewed: Sinus rhythm, normal axis, no STEMI
Rag Shredder: N/A
Critical Care: N/A
Risk of Complication:
Social Determinants of health: Good social support
Discussed with other providers: N/A
Escalation of Care includes Admit/Obs: After being observed in the Emergency Department, pt stable for discharge.
Occasional wrong word or 'sound a like' substitutions may have occurred due to the inherent limitations of voice recognition software. Read the chart carefully and recognize, using context, where substitutions have occurred.
*Critical Care Note
Total Time (30-74mins, 75-104mins- exclusive of procedures): Not Applicable
ED Attending Note
-
Portions of this chart may have been created with voice recognition software.� Occasional wrong word or��sound alike� substitutions may have occurred due to the inherent limitations of voice recognition software.
Discharge Plan
Departure
Patient Disposition: Admit
Date of Disposition: 10/19/23
Time of Disposition: 01:54
Admit to: Med/Surg
Presentation/result/management discussed w/ accepting MD/DO: Hospitalist
Discharge Problem:
Neutropenia, Acute hyponatremia, Hypokalemia
Prescriptions:
No Action
atorvastatin 20 mg Tablet
20 mg PO QPM
tamsulosin 0.4 mg Capsule
0.4 mg PO BID
Rx Instructions:
taken morning and night
finasteride 5 mg Tablet
5 mg PO QPM
xdzpznbqwydm-uyrimrxn-qpqsvk Tablet
1 tab PO DAILY
diltiazem HCl 180 mg Tablet Extended Release 24 Hr
180 mg PO DAILY
fish,bora,flax oils-om3,6,9no1 [Triple [place] 3-6-9] 400-400-400 mg Capsule
2 cap PO DAILY
methenamine hippurate 1 gram Tablet
1 g PO BID
albuterol sulfate 90 mcg/actuation Hfa Aerosol Inhaler
1 puff INHALATION Q4H
Anoro Ellipta 62.5-25 mcg/actuation Blister With Device
2 inh INHALATION DAILY
aspirin [Children's Aspirin] 81 mg Tablet,Chewable
81 mg PO DAILY Qty: 90 0RF
carvedilol 3.125 mg Tablet
3.125 mg PO BID Qty: 60 0RF
prochlorperazine maleate 10 mg Tablet
10 mg PO Q6H PRN (Reason: nausea)
ondansetron 8 mg Tablet,Disintegrating
8 mg PO Q8HPRN PRN (Reason: nausea)
lidocaine-prilocaine [Emla] 2.5-2.5 % Cream
1 applic TOPICAL ONCE
Referrals:
Margarito Edwards MD [Family Provider] -
Interventions
Interventions:
*Risk Screen - Suicide Last Done: 10/19/23 01:11
*Neglect/Abuse Screening Last Done: 10/19/23 01:11
ED- Neurological Assessment Last Done: 10/19/23 01:23
Discharge Date and Time
Print Language: [place]
[2023-10-19] MEDS: NSS 1000 IV ×3 (01:06→14:06)
[2023-10-19 01:16] LABS: Hematocrit 24.3 % (39.0-52.0); Hemoglobin 8.5 g/dL (13.0-18.0); Mean Corpuscular Hgb 32.1 pg (27.0-31.0); Mean Corpuscular Volume 91.7 fL (80.0-94.0); Mean Platelet Volume 9.1 fL (7.4-10.4); Nucleated Red Blood Cells % 1.3 % (-); Platelet Count 109 10^3/uL (130-400); Red Blood Cell Count 2.65 10^6/uL (4.70-6.10); Red Cell Dist. Width 13.6 % (11.5-14.5); White Blood Cell Count 3.1 10^3/uL (4.8-10.8)
[2023-10-19] MEDS: TORADOL 30 MG IV (01:26)
[2023-10-19 01:27] LABS: ALT (SGPT) 16 U/L (0-50); AST (SGOT) 18 U/L (17-59); Albumin 3.1 g/dl (3.5-5.0); Alkaline Phosphatase 159 U/L (38-126); Blood Urea Nitrogen 18 mg/dl (9-20); Carbon Dioxide 25 mmol/L (22-30); Chloride 103 mmol/L (98-107); Estimated Creatinine Clearance 51 ml/min; Glucose 122 mg/dl (70-99); Magnesium 1.6 mg/dl (1.6-2.3); Potassium 3.1 mmol/L (3.5-5.1); Sodium 129 mmol/L (135-145); Total Bilirubin 0.4 mg/dl (0.2-1.3); Total Protein 5.4 g/dl (6.3-8.2); eGFR 57.29
[2023-10-19] MEDS: PEPCID 20 MG IV (01:27)
[2023-10-19 01:28] LABS: Lactic Acid 1.5 mmol/L (0.7-2.0)
[2023-10-19 01:39] LABS: Atypical Lymphocytes 2 %; Band Neutrophils 0 % (0-3); Hypochromasia 1+; Lymphocytes 60 % (20-51); Monocytes 24 % (2-9); Normal RBC Morphology No; Platelets Checked Yes; Segmented Neutrophils 14 % (42-75); Total Cells Counted 100
[2023-10-19 01:40] LABS: Absolute Neutrophils -Man Diff 0.4 10^3/uL (1.4-6.5)
[2023-10-19] MEDS: KLOR-CON 40 MEQ PO (02:08)
[2023-10-19 02:19] LABS: Urine Albumin Negative (Neg - Trace); Urine Bilirubin Negative (Negative); Urine Character Clear (Clear); Urine Color Yellow; Urine Glucose Negative (Negative); Urine Ketone Negative (Negative); Urine Leukocyte Negative (Negative); Urine Nitrite Negative (Negative); Urine Occult Blood Negative (Negative); Urine Specific Gravity 1.015 (<1.030); Urine Urobilinogen Negative (Neg - 1+)
--- NOTE | 2023-10-19 03:09 | HPS.HSE ---
Family Physician
-
Family Physician: Margarito Edwards
Chief Complaint
-
Dehydration
History of Present Illness
This is a 73-year-old male with past medical history significant for Chronic kidney disease stage III, Colon cancer with metastatic disease, follows with Dr Huber, Bladder cancer, gets BCG bladder washes, follows with Dr. Fournier, Chronic
obstructive pulmonary disease, Essential hypertension, Hyperlipidemia, Benign prostatic hyperplasia who presents to the emergency department with bilateral proximal ureter spasms and a feeling of dehydration on the 1 week after his last round of
chemotherapy. Recently admitted with a GI bleed with no evidence of bleeding.
Patient reported that he was usual state of health until 1 day ago. He had 1 episode of diarrhea that resolved. He denied any nausea or vomiting. He denied any abdominal pain. Denied any melena or hematochezia. He denies any urinary symptoms.
Denied having any fevers or chills. Reports that had diarrhea similarly in the past after chemotherapy however at this time denies bilateral upper or extremity spasms which was associated with some pain that brought him to the emergency department.
His daughter felt like this could be related to dehydration.
In the ED he was afebrile, hemodynamically stable and in no acute distress. He is CBC showed a leukocyte count of 3.1 with ANC of 0.4. His labs are mostly notable for a sodium of 129 and potassium of 3.1. His creatinine was 1.3 which is better
than his usual baseline. Calcium was 8.0 magnesium was 1.6. U/A was unremarkable. ECG with normal sinus rhythm without any acute ST or T wave changes.
Medical History
Past Medical History
Past Medical History: Reports Other
Additional Past Medical History:
Chronic kidney disease stage III
Colon cancer with metastatic disease, has not yet started treatment, follows with Dr. Huber
Bladder cancer, gets BCG bladder washes, follows with Dr. Fournier
Chronic obstructive pulmonary disease
Essential hypertension
Hyperlipidemia on Lipitor
Benign prostatic hyperplasia on finasteride and tamsulosin
Past Surgical History: Reports Other
Social History
Tobacco: Non-smoker
Alcohol: None
Drug: None
Personal: Single
Living: With Family
Employment: Retired
Family History
Family History: Not pertinent
Allergies / Home Medications
Allergies reflects when Allergies were last updated in [employer].
Home Medications with original date entered in [employer]
Allergy/Medication List:
Allergies
Allergy/AdvReac Type Severity Reaction Status Date / Time
iodine Allergy Hives Verified 10/19/23 00:20
Home Medications
atorvastatin 20 mg tablet 20 mg PO QPM High Cholesterol 04/09/23
finasteride 5 mg tablet 5 mg PO QPM Urinary Issue 04/09/23
tamsulosin 0.4 mg capsule 0.4 mg PO BID Urinary Issue 04/09/23
diltiazem HCl 180 mg tablet,extended release 24 hr 180 mg PO DAILY Heart Disease/Condition 05/29/23
fish, borage, flaxseed oils-omega 3,6,9 cb #1 400 mg-400 mg-400 mg cap (Triple [place] 3-6-9) 2 cap PO DAILY Supplement 05/29/23
sqtqrzhvhnnl-znatxmqu-maqksa tablet 1 tab PO DAILY Supplement 05/29/23
methenamine hippurate 1 gram tablet 1 g PO BID Gastrointestinal Issue 06/15/23
albuterol sulfate 90 mcg/actuation aerosol inhaler 1 puff inhalation Q4H WHEEZING 09/06/23
umeclidinium 62.5 mcg-vilanterol 25 mcg/actuation powdr for inhalation (Anoro Ellipta) 2 inh inhalation DAILY Lung/Breathing Issues 09/06/23
aspirin 81 mg chewable tablet (Children's Aspirin) 81 mg PO DAILY #90 tabs 09/07/23
carvedilol 3.125 mg tablet 3.125 mg PO BID #60 tabs 09/12/23
lidocaine-prilocaine 2.5 %-2.5 % topical cream 1 applic topical ONCE 09/24/23
ondansetron 8 mg disintegrating tablet 8 mg PO Q8HPRN PRN nausea 09/24/23
prochlorperazine maleate 10 mg tablet 10 mg PO Q6H PRN nausea 09/24/23
Review of Systems
-
History Source: Patient
Constitutional: Reports No Symptoms
EENT: Reports No Symptoms
Respiratory: Reports No Symptoms
Cardiac: Reports No Symptoms
Abdomen/GI: Reports Diarrhea
: Reports No Symptoms
Musculoskeletal: Reports Muscle Pain
Skin: Reports No Symptoms
Neurological: Reports No Symptoms
Endocrine: Reports No Symptoms
Hematologic/Lymphatic: Reports No Symptoms
Psych: Reports No Symptoms
Physical Exam
Vital Signs
Vital Signs
Temp Pulse Resp BP Pulse Ox
98.2 F 65 20 134/83 97
10/19/23 00:20 10/19/23 00:20 10/19/23 00:20 10/19/23 00:20 10/19/23 00:20
Physical Exam
General: Well Developed, Well Nourished and No Apparent Distress
HEENT: NormoCephalic, Anicteric and Moist mucous membranes
Respiratory: Clear
Cardiac: S1/S2 and Regular Rhythm
Breast: Deferred by me
GI: Soft, Non Tender, Non Distended and Normal Bowel Sounds
Rectal: Deferred by Provider
Genito-urinary: No costovertebral tender
Musculoskeletal: No Clubbing, No Cyanosis and No Edema
Skin: Warm and Dry
Neuro: AO x 3
Psych: Calm
Laboratory Results
-
10/19/23 01:03
10/19/23 01:03
Laboratory Results
Lactic Acid 1.5 mmol/L (0.7-2.0) 10/19/23 01:03
Total Bilirubin 0.4 mg/dl (0.2-1.3) 10/19/23 01:03
AST 18 U/L (17-59) 10/19/23 01:03
ALT 16 U/L (0-50) 10/19/23 01:03
Alkaline Phosphatase 159 U/L (38-126) H 10/19/23 01:03
Impression/Plan
-
IMPRESSION:
Patient with episode of diarrhea after chemotherapy (typical for him), presents with episode of bilateral upper extremity spasms and pain which daughter thought was secondary to dehydration and brought him to ED. He was found to have mild
hyponatremia and hypokalemia. With hydration and pain meds patient feels much better and is currently without complaints.
PLAN:
1. Dehydration - Mild dehydration. Na 129. BUN/Cr in usual range. Hemodynamically stable. Feeling improved with IV fluids.
- continue ns at 100 ml/hr
- check orthostatic vitals
- if no diarrhea or vomiting and Na improved, an d/c
- check urine osmolality and sodium
2. Hypokalemia - Mild. Episode of diarrhea as well
- replete wtih 60 meq of KCL total
- replete magnesium
- if improved can d/c
3. Malignancy - Colon Ca on chemo. Neutropenic but no fever or signs of acute infection
- no indication for oncology consultation at this time
- follow up as outpatient
4. HTN
- continue diltiazem
- holding carvedilol, plan to see potter or ceramic artist today to determine continuation
5. COPD - stable
- prn albuterol
6. BPH
- continue tamsulosin/finesteride
DVT PPX with lovenox sq
Full code
[2023-10-19] MEDS: MAGNESIUM OXIDE 500 MG PO (05:19)
[2023-10-19] MEDS: KLOR-CON 20 MEQ PO (05:19)
[2023-10-19] MEDS: TORADOL 15 MG IV (06:09)
[2023-10-19 07:09] LABS: Blood Urea Nitrogen 15 mg/dl (9-20); Calcium 8.8 mg/dl (8.4-10.2); Carbon Dioxide 22 mmol/L (22-30); Chloride 110 mmol/L (98-107); Estimated Creatinine Clearance 62 ml/min; Glucose 96 mg/dl (70-99); Magnesium 1.7 mg/dl (1.6-2.3); Potassium 4.4 mmol/L (3.5-5.1); Sodium 133 mmol/L (135-145); eGFR > 60.00
[2023-10-19 07:19] LABS: Osmolality Urine 344 mOsm/kg (300-900)
[2023-10-19 07:26] LABS: Urine Sodium 48 mmol/L (30-90)
[2023-10-19] MEDS: CARDIZEM CD 180 MG PO (07:53)
[2023-10-19] MEDS: FLOMAX 0.400000000000000022 MG PO (07:53)
[2023-10-19] MEDS: LOW STRENGTH ASPIRIN 81 MG PO (07:53)
[2023-10-19] MEDS: APRESOLINE 10 MG IV (08:19)
[2023-10-19 08:55] LABS: COVID-19 Antigen Negative (Negative)
--- NOTE | 2023-10-19 09:39 | CM ---
Addendum entered by Alexandro Ireland 10/19/23 16:02:
Discharge order noted. Pt is aware and he stated his family will transport home.
PT and OT evaluations noted - pt has no skilled needs.
D/C plan: home no needs. Family to transport
Original Note:
CM following re: discharge planning.
Reviewed pt's chart, met with pt.
Pt is a 72 year old male, admitted with OBS status and primary dx Dehydration. OBS status explained to the pt, pt expressed his understanding, GUTIERREZ letter signed, placed in chart, pt has a copy.
Pt reports he lives alone in 1SH/mobile home, 3 steps to enter, has 3 supportive children. 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
PCP: Margarito Edwards
Pharmacy: [facility]
D/C plan: home with anticipated no needs. Son to transport.
CM will follow with discharge plan updates as hospitalization progresses
[2023-10-19] MEDS: CARDIZEM SR 60 MG PO (11:30)
[2023-10-19] MEDS: ROXICODONE 5 MG PO (11:30)
--- NOTE | 2023-10-19 11:41 | W.PN.HOSP.TC ---
Addendum entered and electronically signed by Paolo Sewell MD 10/19/23 18:02:
[id number]
Original Note:
Today's Communication/Plan
-
increase cardizem to 240mg daily
f/u pcp for titration of bp meds
pain control
f/u onc, pcp outpatient
f/u bmp in 3-5 days
Assessment / Plan
Assessment / Plan
Physical Exam
General: Well Developed, Well Nourished and No Apparent Distress
HEENT: NormoCephalic, Anicteric and Moist mucous membranes
Respiratory: Clear
Cardiac: S1/S2 and Regular Rhythm
Breast: Deferred by me
GI: Soft, Non Tender, Non Distended and Normal Bowel Sounds
Rectal: Deferred by Provider
Genito-urinary: No costovertebral tender
Musculoskeletal: No Clubbing, No Cyanosis and No Edema
Skin: Warm and Dry
Neuro: AO x 3
Psych: Calm
# Hyponatremia, acute
#Dehydration
Mostly worsened with initiation of chemotherapy last week
� Improving with fluids
� No diarrhea, vomiting
� Follow BMP outpatient
#Diffuse joint pain
� Suspect secondary to initiation of FOLFOX
� Was not taking any adequate pain regimen at home
� DC with oxycodone
� Oncology consulted prior to discharge
#Hypokalemia - Mild. Episode of diarrhea as well
Monitor.
� Resolved
Follow BMP outpatient
#Malignancy - Colon Ca on chemo. Neutropenic but no fever or signs of acute infection
-Oncology consulted
- follow up as outpatient
#HTN
- continue diltiazem - increase to 240mg
-Stop Coreg - HR on lower side
-f/u closely outpatient for titration of BP
# COPD - stable
- prn albuterol
#BPH
- continue tamsulosin/finasteride
DVT PPX with lovenox sq
Full code
More than 30 minutes spent in discharge including
Final examination of the patient
Summarizing hospital stay
Instructions for continuing care to all relevant caregivers
Preparation of discharge records, prescriptions, and referral forms
Total time spent (35 in minutes):
Anticipated Discharge: Today
Subjective/Interval History
-
Date of Service: October 19, 2023
Patient has intermittent diffuse pain of his joints, improved with Toradol mildly. Swelling to take oxycodone
Objective Data
-
Labs:
Laboratory Results
10/19/23 10/19/23
01:03 06:02
WBC 3.1 L
Hgb 8.5 L
Hct 24.3 L
Plt Count 109 L
Sodium 129 L 133 L
Potassium 3.1 L 4.4 D
Chloride 103 110 H
Carbon Dioxide 25 22
BUN 18 15
Creatinine 1.3 1.1
Glucose 122 H 96
Calcium 8.0 L 8.8
Total Bilirubin 0.4
AST 18
ALT 16
Alkaline Phosphatase 159 H
Vital Signs:
Vital Signs
Temp Pulse Resp BP Pulse Ox
99.2 F 67 14 173/76 97
10/19/23 07:56 10/19/23 11:30 10/19/23 07:56 10/19/23 11:30 10/19/23 07:56
Review of Systems
-
History Source: Patient
All other systems: Not reviewed unless documented
Physical Exam
-
General: Well Developed, Well Nourished, Comfortable and Conversant
HEENT: Normocephalic, Atraumatic, Nose Appears Normal and Ears Appear Normal; Negative Oxygen
Respiratory: Clear to Auscultation and Non Labored Respirations; Negative Accessory Resp Muscle Use
Cardiac: Regular Rhythm and S1/S2
GI: Soft, Nontender, Nondistended and Normal Bowel Sounds
Skin: Warm and Dry
Neuro: Awake, Alert, Oriented and AO x 3
Psych: Calm and Intact Judgement/Insight
Data Reviewed
-
Labs: Labs Reviewed by me
--- NOTE | 2023-10-19 11:51 | W.DS.TRANS ---
DC Summary - Trauma Manager
-
Discharge Instructions:
Discharge Diagnosis/Procedures diffuse musculoskeletal pain, weakness
Diet Low Cholesterol,Low Fat
Activity As tolerated
Blood Work cbc in 1 week with oncology
Instructions:
Stand-Alone Forms:
Changes to Home Medications: Yes
Discharge Medications:
DC Medications w/original date entered in [employer]
atorvastatin 20 mg tablet 20 mg PO QPM High Cholesterol 04/09/23
finasteride 5 mg tablet 5 mg PO QPM Urinary Issue 04/09/23
tamsulosin 0.4 mg capsule 0.4 mg PO BID Urinary Issue 04/09/23
fish, borage, flaxseed oils-omega 3,6,9 cb #1 400 mg-400 mg-400 mg cap (Triple [place] 3-6-9) 2 cap PO DAILY Supplement 05/29/23
tiqkhjsqetec-ddsdlowx-btxoux tablet 1 tab PO DAILY Supplement 05/29/23
methenamine hippurate 1 gram tablet 1 g PO BID Urinary Issue 06/15/23
albuterol sulfate 90 mcg/actuation aerosol inhaler 1 puff inhalation Q4H WHEEZING 09/06/23
umeclidinium 62.5 mcg-vilanterol 25 mcg/actuation powdr for inhalation (Anoro Ellipta) 1 inh inhalation DAILY Lung/Breathing Issues 09/06/23
aspirin 81 mg chewable tablet (Children's Aspirin) 81 mg PO DAILY #90 tabs 09/07/23
carvedilol 3.125 mg tablet 3.125 mg PO BID #60 tabs 09/12/23
lidocaine-prilocaine 2.5 %-2.5 % topical cream 1 applic topical ONCE port access site 09/24/23
ondansetron 8 mg disintegrating tablet 8 mg PO Q8HPRN PRN nausea 09/24/23
prochlorperazine maleate 10 mg tablet 10 mg PO Q6H PRN nausea 09/24/23
acetaminophen 325 mg tablet 650 mg (2 x 325 mg) PO Q4HPRN PRN mild pain/MCCANN/temp> 100.4F 30 days #60 tabs 10/19/23
diltiazem HCl 240 mg capsule,extended release 24 hr 240 mg PO DAILY 30 days #30 caps 10/19/23
omeprazole 20 mg tablet,delayed release 20 mg PO DAILYPRN PRN GERD 10/19/23
oxycodone 5 mg tablet 5 mg PO Q4HPRN PRN pain #18 tabs 10/19/23
sennosides 8.6 mg-docusate sodium 50 mg tablet (Stool Softener-Stimulant Laxative) 1 tab PO BIDPRN PRN constipation #180 tabs 10/19/23
Home Medication Changes
oxycodone 5 mg tablet 5 mg PO Q4HPRN PRN pain #18 tabs 10/19/23
sennosides 8.6 mg-docusate sodium 50 mg tablet (Stool Softener-Stimulant Laxative) 1 tab PO BIDPRN PRN constipation #180 tabs 10/19/23
diltiazem HCl 240 mg capsule,extended release 24 hr 240 mg PO DAILY 30 days #30 caps 10/19/23
Pending Results: No
--- NOTE | 2023-10-19 12:39 | CON.ONC ---
Addendum entered and electronically signed by Gabriela Alvarez MD 10/19/23 16:18:
Patient seen on rounds w/ BRADY, agree w/ A&P as below
Will f/u in office next week, may benefit from add'l IVF prn, reduced dose G-CSF
Rec claritin to help with bone pain from GCSF moving forward
okay for d/c
Original Note:
Impression
Impression
Metastatic colon cancer on chemotherapy
Neutropenia
Generalized weakness/fatigue
Diffuse joint pain/muscle aches
Hypertension
Plan
Plan
Monitor CBC, CMP
Continue neutropenic precautions: ANC 400
Patient received GCS-F ([place]) 10/11
Recommend use of Claritin 10mg daily following chemotherapy/GCS-F for control of muscle/joint pain
Consider use of Gabapentin if needed
Pain management - Rx for oxycodone provided by Hospitalist
Bowel regimen
Follow up with Cardiology as scheduled
Reminded patient to call our office with concerns/acute symptoms as we can offer patient IVF and support at the infusion center.
Follow up with BRADY Velásquez is scheduled with [facility] on , 10/23 for office visit and treatment.
All questions answered at this time.
Patient History
History of Present Illness
Duran Richmond is a 73 year old male known to Dr. Huber with [place] with history of metastatic colon cancer receiving palliative FOLFOX with GCS-F support. Last cycle was administered on 10/09 and GCS-F support with [place] on 10/11. He presented to
the ER last evening, 10/17, with complaints of generalized weakness, fatigue, diffuse joint/body pain as well as diarrhea. He notes the pain to be in his arms, shoulders, back, and hips. On presentation to the ER, he was found to be neutropenic with
ANC 400, however, no signs of infection; afebrile and hemodynamically stable. He was provided a dose of Toradol for diffuse pain. He denies evidence of bleeding. He is s/p recent AAA repair with Dr. Ortiz. He is maintained on Aspirin and has
discontinued Plavix.
Past-Medical/Surgical History
Stage IV metastatic colon cancer on FOLFOX
Non-invasive bladder cancer s/p BCG (Dr. Coronado)
AAA s/p repair (Dr. Ortiz, 08/2023)
BPH
CKD3
COPD
Hypertension
Hyperlipidemia
Cholecystectomy
Patient Medication
�Medication �Instructions �Recorded �Confirmed �Last Taken �Type
atorvastatin 20 mg tablet 20 mg PO QPM High Cholesterol 04/09/23 10/19/23 10/18/23 History
finasteride 5 mg tablet 5 mg PO QPM Urinary Issue 04/09/23 10/19/23 10/18/23 History
tamsulosin 0.4 mg capsule 0.4 mg PO BID Urinary Issue 04/09/23 10/19/23 10/18/23 History
fish, borage, flaxseed oils-omega 2 cap PO DAILY Supplement 05/29/23 10/19/23 10/18/23 History
3,6,9 cb #1 400 mg-400 mg-400 mg
cap (Triple [place] 3-6-9)
cbnhcfvbdrtx-cyizufny-ymyjfl tablet 1 tab PO DAILY Supplement 05/29/23 10/19/23 10/18/23 History
methenamine hippurate 1 gram tablet 1 g PO BID Urinary Issue 06/15/23 10/19/23 10/18/23 History
albuterol sulfate 90 mcg/actuation 1 puff inhalation Q4H WHEEZING 09/06/23 10/19/23 09/08/23 History
aerosol inhaler
umeclidinium 62.5 mcg-vilanterol 1 inh inhalation DAILY 09/06/23 10/19/23 09/08/23 History
25 mcg/actuation powdr for Lung/Breathing Issues
inhalation (Anoro Ellipta)
aspirin 81 mg chewable tablet 81 mg PO DAILY #90 tabs 09/07/23 10/19/23 10/18/23 Rx
(Children's Aspirin)
carvedilol 3.125 mg tablet 3.125 mg PO BID #60 tabs 09/12/23 10/19/23 10/18/23 Rx
lidocaine-prilocaine 2.5 %-2.5 % 1 applic topical ONCE port access 09/24/23 10/19/23 Unknown History
topical cream site
ondansetron 8 mg disintegrating 8 mg PO Q8HPRN PRN nausea 09/24/23 10/19/23 Unknown History
tablet
prochlorperazine maleate 10 mg 10 mg PO Q6H PRN nausea 09/24/23 10/19/23 Unknown History
tablet
acetaminophen 325 mg tablet 650 mg (2 x 325 mg) PO Q4HPRN PRN 10/19/23 Unknown Rx
mild pain/MCCANN/temp> 100.4F 30 days
#60 tabs
diltiazem HCl 240 mg 240 mg PO DAILY 30 days #30 caps 10/19/23 Unknown Rx
capsule,extended release 24 hr
omeprazole 20 mg tablet,delayed 20 mg PO DAILYPRN PRN GERD 10/19/23 10/19/23 Unknown History
release
oxycodone 5 mg tablet 5 mg PO Q4HPRN PRN pain #18 tabs 10/19/23 Unknown Rx
sennosides 8.6 mg-docusate sodium 1 tab PO BIDPRN PRN constipation 10/19/23 Unknown Rx
50 mg tablet (Stool #180 tabs
Softener-Stimulant Laxative)
Active Medications
Generic Name Dose Route Start Last Admin
Trade Name Freq PRN Reason Stop Dose Admin
Acetaminophen 650 mg 10/19/23 05:48
Acetaminophen 325 Mg Tablet PO 11/16/23 05:47
Q4HPRN PRN
mild pain/MCCANN/temp> 100.4F
Albuterol 1 puff 10/19/23 05:58
Albuterol Hfa [90 Mcg/Dose] Inhaler INH
R Q4 PRN
wheezing or short of breath
Protocol
Aspirin 81 mg 10/19/23 08:00 10/19/23 07:53
Aspirin 81 Mg Chewable Tablet PO 11/16/23 07:59 81 mg
DAILY POOL Administration
Atorvastatin Calcium 20 mg 10/19/23 18:00
Atorvastatin (Lipitor) 20 Mg Tablet PO 11/16/23 17:59
QPM POOL
Bisacodyl 10 mg 10/19/23 05:48
Bisacodyl 10 Mg Rectal Suppository RECTAL 11/16/23 05:47
[id number] PRN
constipation
Diltiazem HCl 240 mg 10/20/23 08:00
Diltiazem 240 Mg Extended Release (24 H) Capsule PO 11/17/23 07:59
DAILY POOL
Enoxaparin Sodium 40 mg 10/19/23 18:00
Enoxaparin Sodium 40 Mg/0.4 Ml Syringe SC 11/16/23 17:59
QPM POOL
Finasteride 5 mg 10/19/23 18:00
Finasteride 5 Mg Tablet PO 11/16/23 17:59
QPM POOL
Sodium Chloride 1,000 mls @ 125 mls/hr 10/19/23 05:48 10/19/23 06:10
Nss IV 1,000 mls
.Q8H POOL Administration
Ketorolac Tromethamine 15 mg 10/19/23 05:48 10/19/23 06:09
Ketorolac 15 Mg/Ml Injection IV 10/24/23 05:47 15 mg
Q6HPRN PRN Administration
moderate pain
Methenamine Hippurate 1 gram 10/19/23 20:00
Methenamine Hippurate 1 Gram Tablet PO
BID POOL
Olodaterol 2 puff 10/19/23 08:00 10/19/23 08:24
Olodaterol (Striverdi Respimat) 2.5 Mcg Inhaler INH 11/16/23 07:59 Not Given
R DAILY POOL
Ondansetron HCl 4 mg 10/19/23 05:48
Ondansetron 4 Mg/2 Ml Vial IV 11/16/23 05:47
Q6HPRN PRN
nausea and vomiting
Oxycodone HCl 5 mg 10/19/23 11:11 10/19/23 11:30
Oxycodone 5 Mg Regular Release Tablet PO 11/02/23 11:10 5 mg
Q4HPRN PRN Administration
pain
Pantoprazole Sodium 40 mg 10/20/23 08:00
Pantoprazole 40 Mg Delayed Release Tablet PO 11/17/23 07:59
DAILY POOL
Polyethylene Glycol 17 grams 10/19/23 05:48
Polyethylene Glycol Powder 17 Grams Packet PO 11/16/23 05:47
DAILYPRN PRN
constipation
Senna/Docusate Sodium 1 tablet 10/19/23 05:48
Docusate W/Senna (Miladis-Colace) Tablet PO 11/16/23 05:47
BIDPRN PRN
constipation
Sodium Chloride 0 flush 10/19/23 06:00
Sodium Chloride 0.9% (Flush) Syringe IV 11/16/23 05:59
PER PROTOCOL POOL
Tamsulosin HCl 0.4 mg 10/19/23 08:00 10/19/23 07:53
Tamsulosin 0.4 Mg Capsule PO 11/16/23 07:59 0.4 mg
BID POOL Administration
Tiotropium [place] 2 puff 10/19/23 08:00 10/19/23 08:23
Tiotropium (Spiriva Respimat) 2.5 Mcg Inhaler INH 11/16/23 07:59 Not Given
R DAILY POOL
Review of Systems
-
History Source: Patient, Family, Physician, Coordinated Provider and Records
Constitutional: Reports No Symptoms
EENT: Reports No Symptoms
Respiratory: Reports No Symptoms
Cardiac: Reports No Symptoms
GI: Reports No Symptoms
Breast: Reports N/A
: Reports No Symptoms
Musculoskeletal: Reports Joint Pain, Muscle Pain and Myalgias
Skin: Reports No Symptoms
Neuro: Reports No Symptoms
Endocrine: Reports No Symptoms
Hematologic/Lymphatic: Reports No Symptoms
Allergy / Immunology: Reports No Symptoms
Psych: Reports No Symptoms
Physical Exam
-
patient OOB to the chair. family at bedside.
General: Well Developed, Well Nourished, No Apparent Distress and Conversant
HEENT: Negative Jaundice
Cardiology: S1 and S2
Pulmonary: Clear
GI: Normal Bowel Sounds
Musculoskeletal: No Edema
Extremities: Pulses Present
Neurology: Non Focal
Skin: Warm and Dry
Psych: Anxious
Labs
Lab Results
WBC 3.1 10^3/uL (4.8-10.8) L 10/19/23 01:03
RBC 2.65 10^6/uL (4.70-6.10) L 10/19/23 01:03
Hgb 8.5 g/dL (13.0-18.0) L 10/19/23 01:03
Hct 24.3 % (39.0-52.0) L 10/19/23 01:03
MCV 91.7 fL (80.0-94.0) 10/19/23 01:03
MCH 32.1 pg (27.0-31.0) H 10/19/23 01:03
MCHC 35.0 g/dL (33.0-37.0) 10/19/23 01:
RDW 13.6 % (11.5-14.5) 10/19/23 01:03
Plt Count 109 10^3/uL (130-400) L 10/19/23 01:03
MPV 9.1 fL (7.4-10.4) 10/19/23 01:03
Creatinine 1.1 mg/dL (0.7-1.3) 10/19/23 06:02
Vital Signs
Vital Signs
Temp Pulse Resp BP Pulse Ox
99.2 F 67 14 173/76 97
10/19/23 07:56 10/19/23 11:30 10/19/23 07:56 10/19/23 11:30 10/19/23 07:56
[2023-10-19] MEDS: TYLENOL 650 MG PO (13:18)
--- NOTE | 2023-10-19 15:30 | PTOTSP ---
Patient demonstrates independence with mobility, elevations and ambulation. Does not demonstrate need for further skilled therapy and will be discharged at this time. If needs change, please re-consult.
== END 2023-10-19 17:45 | disposition home or self-care (01) ==
LOC: 2 SOUTH 03:51
PROVIDERS: ADMITTING PHYSICIAN Internal Medicine; ATTENDING PHYSICIAN Internal Medicine; CONSULT PHYSICIAN Internal Medicine Hematology & Oncology; EMERGENCY PHYSICIAN Student in an Organized Health Care Education/Training Program; FAMILY PHYSICIAN Family Medicine
DX: E87.1 Hypo-osmolality and hyponatremia (principal); R53.1 Weakness; E87.6 Hypokalemia; D70.9 Neutropenia, unspecified; R52 Pain, unspecified; M79.18 Myalgia, other site; R19.7 Diarrhea, unspecified; E86.0 Dehydration; C18.9 Malignant neoplasm of colon, unspecified; C67.9 Malignant neoplasm of bladder, unspecified; J44.9 Chronic obstructive pulmonary disease, unspecified; N40.0 Benign prostatic hyperplasia without lower urinary tract symptoms; N18.30 Chronic kidney disease, stage 3 unspecified; E78.00 Pure hypercholesterolemia, unspecified; I12.9 Hypertensive chronic kidney disease with stage 1 through stage 4 chronic kidney disease, or unspecified chronic kidney disease; Z90.49 Acquired absence of other specified parts of digestive tract; Z87.891 Personal history of nicotine dependence; Z79.82 Long term (current) use of aspirin; Z79.51 Long term (current) use of inhaled steroids; Z91.041 Radiographic dye allergy status
CPT/HCPCS: 80048; 80053; 81003; 83605; 83735; 83935; 84300; 85025; 86850; 86900; 86901; 87502; 87811; 93005; 96361; 96374; 96375; 97162; 97166; 99285; G0378

== ENCOUNTER → 2023-10-29 09:45 | Outpatient (REF) | payer MEDICARE, OTHER, SELFPAY | LOC: RAD 09:45 | PROVIDERS: ATTENDING PHYSICIAN Surgery Vascular Surgery; FAMILY PHYSICIAN Family Medicine | DX: I71.40 Abdominal aortic aneurysm, without rupture, unspecified (principal) | CPT/HCPCS: 74176 ==

== ENCOUNTER 2023-12-08 04:53 | Inpatient (IN) | payer MEDICARE, OTHER, SELFPAY ==
[2023-12-07 22:44] VITALS: BP 117/72
[2023-12-07 22:58] VITALS: BP 139/83
[2023-12-07 23:00] VITALS: BP 138/74
[2023-12-07] MEDS: MOTRIN 400 MG PO (23:29)
[2023-12-07 23:34] LABS: Hematocrit 29.7 % (39.0-52.0); Hemoglobin 9.8 g/dL (13.0-18.0); Mean Corpuscular Hgb 30.8 pg (27.0-31.0); Mean Corpuscular Volume 93.4 fL (80.0-94.0); Red Blood Cell Count 3.18 10^6/uL (4.70-6.10); Red Cell Dist. Width 17.2 % (11.5-14.5)
[2023-12-07] MEDS: NSS 500 IV (23:36)
--- NOTE | 2023-12-07 23:38 | ED.GENMED ---
History of Present Illness
General
Chief Complaint: Fever
Source: patient and family
Exam Limitations: none
Time Seen by Provider: 12/07/23 23:08
Travel History
Have you had any contact with someone who has COVID-19?: No
Do you have any symptoms of coronavirus? Fever > 100 degrees, chills, cough, shortness of breath, sore throat, loss of taste or smell, muscle aches, or headache?: No
History of Present Illness
History of Present Illness:
Patient with history of colon and bladder cancer, presents to ED secondary to sudden onset of fever this afternoon. Patient is status post chemo treatment 10 days ago, and has been experiencing intermittent diarrhea with abdominal cramps cramping
sensation since treatment. Denies chest pain or shortness of breath. Denies abdominal pain. Denies nausea or vomiting. Denies difficulty with urination. Patient reports significantly decreased appetite. Denies coughing. Denies sore throat.
Denies headache.
Past History
Past History
ED Past Medical History: Cancer (Colon cancer), HTN, Hypercholesterolemia, Other (AAA) and Other (BPH/prostatitis)
ED Past Surgical History: Cholecystectomy and Tonsilectomy
Social History
Tobacco: Former smoker
Alcohol: None
Drug: None
Personal:
Living: with family
Review of Systems
Review of Systems
Allergies reviewed?: Yes
All Other Systems: ROS reviewed and negative except as documented in HPI and ROS
Constitutional: Reports fever
EENT: Reports no symptoms
Respiratory: Reports no symptoms; Denies cough or trouble breathing
Cardiac: Reports no symptoms
ABD/GI: Reports abdominal pain and diarrhea; Denies nausea or vomiting
: Reports no symptoms
Musculoskeletal: Reports no symptoms
Skin: Reports no symptoms
Neurological: Reports weakness; Denies headache
Phy Exam
Physical Exam
Physical Exam:
Physical Exam
General: mild distress, not acutely ill. febrile. weak appearing
Head: nc/at. eomi
Neck: supple. no meningeal signs.
Heart: s1/s2 regular rate and rhythm, no murmur. equal radial pulses.
Lungs: no acute respiratory distress. clear bilaterally
Abdomen: normal bowel sounds. not tender.
Neuro: alert and oriented. no focal neurological deficits
Skin: no rash
Psychiatric: well kept. interactive and cooperative
Extremities: no edema. no calf tenderness.
Course
Orders/Labs/Results
Orders:
Orders
12/07/23 22:51
Urinalysis Reflex To Culture Urgent
Date Specimen was Collected: 12/07/23
Time Specimen was Collected: 22:51
12/07/23 23:10
Ibuprofen [Motrin] 400 mg PO NOW STA
12/07/23 23:21
COVID-19 Antigen Urgent
Source: Nasal Swab
Complete Blood Count/With Diff Urgent
Comprehensive Metabolic Panel Urgent
Lactic Acid Urgent
Lipase Urgent
Manual Differential Urgent
Blood Culture Q30M
DIANA Source: Blood/Venous
Specimen Description:
Comment: FROM 2 SEPARATE SITES
Blood Culture Q30M
DIANA Source: Blood/Venous
Specimen Description:
Comment: FROM 2 SEPARATE SITES
Influenza A+B Rapid Molecular Urgent
DIANA Source: Nasal Swab
Specimen Description:
12/07/23 23:35
0.9% Sodium Chloride 500 ml [Nss] 500 ml IV BOLUS
12/07/23 23:43
STOOL [C difficile Antigen & Toxins] Urgent
DIANA Source: Feces/Stool
Specimen Description:
Date Specimen was Collected: 12/08/23
Time Specimen was Collected: 04:54
Stool Culture Urgent
DIANA Source: Feces/Stool
Specimen Description:
Date Specimen was Collected: 12/08/23
Time Specimen was Collected: 04:54
12/08/23 00:56
Urine Microscopic Reflex Cult Urgent
12/08/23 01:17
0.9% Sodium Chloride 500 ml [Nss] 500 ml IV BOLUS
12/08/23 01:18
0.9% Sodium Chloride 500 ml [Nss] 500 ml IV BOLUS
12/08/23 01:19
CT Abd/pel Without Iv Or Oral Urgent
Comment:
Reason For Exam: LLQ pain
12/08/23 02:33
Piperacillin/Tazo 3.375 Gram [Zosyn] 3.375 gram in 50 ml IV NOW
12/08/23 02:45
0.9% Sodium Chloride 1000 ml [Nss] 1,000 ml IV 125 mls/hr
12/08/23 04:40
Admit/Transfer Patient As Directed
Co-Sign Provider:
Level of Care: Inpatient admission
Assign to:: Telemetry
Physician / Group: Dr. Leigh
Diagnosis: Febrile neutropenia
Reason for Telemetry: Arrhythmia
Date to Stop Telemetry: 12/11/23
Time to Stop Telemetry: 11:00
Reason for Hospitalization: Patient presented with fever in the setting of neutropenia.
Expected length of stay greater than two midnights?: Yes
ELOS- Estimated Length of Stay in days: 2
I certify the patient meets the requirements for IP care: Yes
12/08/23 04:43
Code Status As Directed
Resuscitation Status: Do not resuscitate
Reached after discussion with pt or family/Healthcare POA: Yes
DNR Bracelet Application ONCE
12/08/23 04:46
HYDROmorphone [Dilaudid] 0.25 mg IV Q4HPRN PRN
Precautions As Directed
Type of Precautions: Neutropenic
12/08/23 04:47
Consult Notification Routine
Specialty to Notify: Infectious Disease
Date consulting provider notified: 12/08/23
Time consulting provider notified: 07:50
Notified:: Provider
INFECTIOUS DISEASE CONSULT Routine
Consulting Provider: Noe Mir
Was physician already notified: Yes
Reason for consult: Neutropenic fever
12/08/23 04:48
Consult Notification Routine
Specialty to Notify: Oncology
Date consulting provider notified: 12/08/23
Time consulting provider notified: 07:49
Notified:: Provider
ONCOLOGY CONSULT Routine
Consulting Provider: Jimenez Saab
Was physician already notified: Yes
Reason for consult: Pancytopenia-metastatic colon ca eval
12/08/23 04:51
CXR2 [CR Chest - 2 Views ] Routine
Comment:
Reason For Exam: Fever rule out pneumonia
12/08/23 05:00
0.9% Sodium Chloride 1000 ml [Nss] 1,000 ml IV 85 mls/hr
12/08/23 05:02
Lactic Acid Stat
MRSA Screen Routine
DIANA Source: Nose
Specimen Description:
12/08/23 05:54
Acetaminophen [Tylenol] 650 mg PO Q4HPRN PRN
Albuterol [ProAIR HFA INHALER] 1 puff INH R Q4HPRN PRN
Bisacodyl [Dulcolax] 10 mg RECTAL [id number] PRN
Docusate W/Senna [Senokot-S] 1 tablet PO BIDPRN PRN
Polyethylene Glycol Powder [Miralax] 17 grams PO DAILYPRN PRN
12/08/23 05:54
Activity As Directed
Activity Level: Out of Bed-Early Mobility
Pneumatic Compression Sleeves As Directed
Type: Knee high
Vital Signs As Directed
Frequency: Per unit guidelines
DX Deep Vein Thrombosis Video Routine
12/08/23 Breakfast
Cholesterol Lowering
At Your Request: Non-Participating
Does patient need a safe tray?: No
Cholesterol Lowering: Sodium, 2 Gram
Cefepime HCl [Maxipime] 1,000 mg IV Q12H
12/08/23 06:52
Complete Blood Count/With Diff Routine
Comprehensive Metabolic Panel Routine
12/08/23 08:00
Diltiazem Extended Release [Cardizem Cd] 240 mg PO DAILY
Famotidine [Pepcid] 20 mg PO DAILY
Tamsulosin [Flomax] 0.4 mg PO BID
umeclidinium-vilanterol [Anoro Ellipta] 1 inh INH DAILY
12/08/23 18:00
Atorvastatin [Lipitor] 20 mg PO QPM
Finasteride [Proscar] 5 mg PO QPM
12/11/23 11:00
DC Protocol for Telemetry ONCE
Abnormal Lab Results
12/07/23 12/08/23
23:21 00:56
WBC 1.2 L* 10^3/uL
(4.8-10.8)
RBC 3.18 L 10^6/uL
(4.70-6.10)
Hgb 9.8 L g/dL
(13.0-18.0)
Hct 29.7 L %
(39.0-52.0)
RDW 17.2 H %
(11.5-14.5)
Plt Count 66 L 10^3/uL
(130-400)
Abs Neuts (Manual) 0.1 L* 10^3/uL
(1.4-6.5)
Segmented Neutrophils 11 L %
(42-75)
Band Neutrophils 4 H %
(0-3)
Lymphocytes (Manual) 59 H %
(20-51)
Monocytes (Manual) 15 H %
(2-9)
Sodium 133 L mmol/L
(135-145)
Glucose 121 H mg/dl
(70-99)
Calcium 7.8 L mg/dl
(8.4-10.2)
Alkaline Phosphatase 159 H U/L
(38-126)
Total Protein 5.3 L g/dl
(6.3-8.2)
Albumin 3.0 L g/dl
(3.5-5.0)
Ur Occult Blood Reflex 2+ A
(Negative)
Urine Bilirubin 1+ A
(Negative)
Urine RBC 26-30 A /HPF
(0-2)
12/07/23 23:21
12/07/23 23:21
Vital Signs
Initial and Last Documented VS:
Initial Vital Signs
Temp Pulse Resp BP Pulse Ox
102.2 F H 89 18 117/72 94
12/07/23 22:44 12/07/23 22:44 12/07/23 22:44 12/07/23 22:44 12/07/23 22:44
Last Documented Vital Signs
Temp Pulse Resp BP Pulse Ox
98.8 F 61 18 112/60 97
12/08/23 23:15 12/08/23 23:15 12/08/23 23:15 12/08/23 23:15 12/08/23 23:15
MDM/Problems Addressed
MDM/Problems Addressed:
History and exam along with blood work concerning for neutropenic fever. Source of infection unknown at this time. However, in light of ongoing lower abdominal discomfort as well as diarrhea, CT abdomen pelvis has been ordered. Patient will be
given empiric dose of Zosyn at this time.
Blood culture pending.
*Critical Care Note
Total Time (30-74mins, 75-104mins- exclusive of procedures): Not Applicable
ED Attending Note
-
Portions of this chart may have been created with voice recognition software.� Occasional wrong word or��sound alike� substitutions may have occurred due to the inherent limitations of voice recognition software.
Discharge Plan
Departure
Patient Disposition: Admit
Date of Disposition: 12/08/23
Time of Disposition: 02:38
Admit to: Med/Surg
Presentation/result/management discussed w/ accepting MD/DO: Hospitalist
Discharge Problem:
Neutropenic fever
Interventions
Interventions:
*Risk Screen - Suicide Last Done: 12/08/23 06:16
*General Assessment Last Done: 12/07/23 22:44
*Neglect/Abuse Screening Last Done: 12/07/23 22:44
ED- Fall Risk Assessment Last Done: 12/07/23 23:44
*ED COVID-19 Vaccine History Last Done: 12/08/23 06:16
*Nursing Disposition Last Done: 12/08/23 05:40
ED- Neurological Assessment Last Done: 12/07/23 23:40
ED-Skin Assessment Last Done: 12/07/23 23:40
Discharge Date and Time
Discharge Date/Time: 12/08/23 05:40
[2023-12-07 23:51] LABS: ALT (SGPT) 12 U/L (0-50); AST (SGOT) 20 U/L (17-59); Alkaline Phosphatase 159 U/L (38-126); Blood Urea Nitrogen 19 mg/dl (9-20); Calcium 7.8 mg/dl (8.4-10.2); Carbon Dioxide 27 mmol/L (22-30); Chloride 101 mmol/L (98-107); Glucose 121 mg/dl (70-99); Lipase 30 U/L (23-300); Potassium 3.6 mmol/L (3.5-5.1); Sodium 133 mmol/L (135-145); Total Bilirubin 0.6 mg/dl (0.2-1.3); Total Protein 5.3 g/dl (6.3-8.2); White Blood Cell Count 1.2 10^3/uL (4.8-10.8); eGFR 57.29
[2023-12-07 23:52] LABS: COVID-19 Antigen Negative (Negative)
[2023-12-08] VITALS (10 sets, daily range): BP systolic 94–147; BP diastolic 49–67; BMI 25.4
[2023-12-08 00:24] LABS: Mean Platelet Volume 9.7 fL (7.4-10.4); Platelet Count 66 10^3/uL (130-400)
[2023-12-08 00:26] LABS: Band Neutrophils 4 % (0-3); Eosinophils 4 % (0-6); Lymphocytes 59 % (20-51); Monocytes 15 % (2-9); Segmented Neutrophils 11 % (42-75)
[2023-12-08 00:27] LABS: Anisocytosis Slight; Hypochromasia Slight; Metamyelocytes 7 % (-); Normal RBC Morphology No; Platelets Checked Yes; Polychromasia Slight; Total Cells Counted 100
[2023-12-08 00:29] LABS: Absolute Neutrophils -Man Diff 0.1 10^3/uL (1.4-6.5)
[2023-12-08 01:03] LABS: Urine Albumin Trace (Neg - Trace); Urine Bilirubin 1+ (Negative); Urine Character Clear (Clear); Urine Color Yellow; Urine Glucose Negative (Negative); Urine Ketone Negative (Negative); Urine Leukocyte Negative (Negative); Urine Nitrite Negative (Negative); Urine Occult Blood 2+ (Negative); Urine Urobilinogen Negative (Neg - 1+); Urine pH 6.5 (5.0-9.0)
[2023-12-08] MEDS: NSS 500 IV (01:18)
[2023-12-08 02:12] LABS: Urine Red Blood Cell 26-30 /HPF (0-2); Urine White Cell 0-2 /HPF (0-5)
[2023-12-08] MEDS: ZOSYN 50 IV (02:37)
[2023-12-08] MEDS: NSS 1000 IV ×3 (02:43→16:02)
--- NOTE | 2023-12-08 02:57 | HPS.HSE ---
Family Physician
-
Family Physician: Margarito Edwards
Chief Complaint
-
Fever
History of Present Illness
Patient 73 years old man history of metastatic colon cancer, bladder cancer, CKD, presented to the hospital with neutropenic fever. Patient had chemotherapy several days ago (he thinks it was last Sunday, and he is on a FOLFOX regimen) and since
then he has been having diarrhea which is not unusual for him after chemotherapy. He took some Imodium yesterday and diarrhea slowed down but still persists. He also had a fever up to 101.7 Fahrenheit at home last evening so called his oncologist
and they instructed him to come to the ER for further evaluation. He denies nausea or vomiting. He has been having associated generalized weakness, decreased appetite over the last several days and also intermittent mild to moderate intensity
diffuse abdominal discomfort crampy in nature. He denies cough, denies dysuria urgency or frequency or hematuria. Denies chest pain or shortness of breath. Denies any new rash. Denies joint pain. In the ER, temperature 102.2 Fahrenheit, WBC 1.2,
low ANC, he is tachypneic but not tachycardic although he is on AV conraod modifying agents. He had a CT scan of the abdomen pending definitive report. He was referred to hospitalist service for further evaluation.
Medical History
Past Medical History
Past Medical History: Reports Other (Hypertension, hyperlipidemia, CKD, BPH, bladder cancer with routine BCG bladder washes, metastatic colon cancer started on chemotherapy.)
Past Surgical History: Reports Other (Abdominal aortic aneurysm repair, cystoscopy with bladder biopsies, cholecystectomy.)
Social History
Tobacco: Former Smoker
Alcohol: None
Drug: None
Family History
Family History: Not pertinent
Allergies / Home Medications
Allergies reflects when Allergies were last updated in [facility].
Home Medications with original date entered in [facility]
Allergy/Medication List:
Allergies
Allergy/AdvReac Type Severity Reaction Status Date / Time
iodine Allergy Hives Verified 10/19/23 00:20
Home Medications
atorvastatin 20 mg tablet 20 mg PO QPM High Cholesterol 04/09/23
finasteride 5 mg tablet 5 mg PO QPM Urinary Issue 04/09/23
tamsulosin 0.4 mg capsule 0.4 mg PO BID Urinary Issue 04/09/23
fish, borage, flaxseed oils-omega 3,6,9 cb #1 400 mg-400 mg-400 mg cap (Triple [place] 3-6-9) 2 cap PO DAILY Supplement 05/29/23
mpygwzvyfkdi-ulfcbpth-yxalyj tablet 1 tab PO DAILY Supplement 05/29/23
methenamine hippurate 1 gram tablet 1 g PO BID Urinary Issue 06/15/23
albuterol sulfate 90 mcg/actuation aerosol inhaler 1 puff inhalation Q4H WHEEZING 09/06/23
umeclidinium 62.5 mcg-vilanterol 25 mcg/actuation powdr for inhalation (Anoro Ellipta) 1 inh inhalation DAILY Lung/Breathing Issues 09/06/23
aspirin 81 mg chewable tablet (Children's Aspirin) 81 mg PO DAILY #90 tabs 09/07/23
carvedilol 3.125 mg tablet 3.125 mg PO BID #60 tabs 09/12/23
lidocaine-prilocaine 2.5 %-2.5 % topical cream 1 applic topical ONCE port access site 09/24/23
ondansetron 8 mg disintegrating tablet 8 mg PO Q8HPRN PRN nausea 09/24/23
prochlorperazine maleate 10 mg tablet 10 mg PO Q6H PRN nausea 09/24/23
acetaminophen 325 mg tablet 650 mg (2 x 325 mg) PO Q4HPRN PRN mild pain/MCCANN/temp> 100.4F 30 days #60 tabs 10/19/23
diltiazem HCl 240 mg capsule,extended release 24 hr 240 mg PO DAILY 30 days #30 caps 10/19/23
loratadine 10 mg tablet (Claritin) 10 mg PO DAILY PRN muscle/joint pain #30 tabs 10/19/23
omeprazole 20 mg tablet,delayed release 20 mg PO DAILYPRN PRN GERD 10/19/23
oxycodone 5 mg tablet 5 mg PO Q4HPRN PRN pain #18 tabs 10/19/23
sennosides 8.6 mg-docusate sodium 50 mg tablet (Stool Softener-Stimulant Laxative) 1 tab PO BIDPRN PRN constipation #180 tabs 10/19/23
Review of Systems
-
A 12 point ROS was completed and negative except as noted: Yes
Physical Exam
Vital Signs
Vital Signs
Temp Pulse Resp BP Pulse Ox
98.2 F 66 28 127/65 95
12/08/23 02:05 12/08/23 02:30 12/08/23 02:30 12/08/23 02:03 12/08/23 02:30
Physical exam:
General: Acutely ill but nontoxic appearance
HEENT: Normocephalic, Atraumatic and Dry mucous Membranes
Respiratory: Clear to Auscultation; Negative Wheezes, Rales or Rhonchi
Cardiac: Regular Rhythm and S1/S2
GI: Soft, Nontender and Nondistended
Musculoskeletal: No Clubbing, No Cyanosis and No Edema
Neuro: Awake, Alert and Oriented
Psych: Calm
Physical Exam
General: Other
Laboratory Results
-
12/07/23 23:21
12/07/23 23:21
Laboratory Results
Lactic Acid 1.0 mmol/L (0.7-2.0) 12/07/23 23:21
Total Bilirubin 0.6 mg/dl (0.2-1.3) 12/07/23 23:21
AST 20 U/L (17-59) 12/07/23 23:21
ALT 12 U/L (0-50) 12/07/23 23:21
Alkaline Phosphatase 159 U/L (38-126) H 12/07/23 23:21
Lipase 30 U/L (23-300) 12/07/23 23:21
Data Reviewed
-
CT Scan: Image Personally Visualized and interpreted
Lab Data: Labs Reviewed by me
Impression/Plan
-
IMPRESSION:
Patient is 73 years old male with history hypertension, hyperlipidemia, COPD, CKD, bladder cancer, metastatic colon cancer on chemotherapy presented to the hospital with febrile neutropenia. Patient at increased risk of morbidity mortality due to
acute presentation and multiple comorbidities and at increased risk of sepsis and shock. Patient will need to be treated in the hospital and managed accordingly.
PLAN:
Neutropenic fever:
Broad-spectrum IV antibiotics, cefepime and vancomycin
Check MRSA swab
Blood cultures ordered
Check lactic acid
Will obtain chest x-ray PA lateral
Influenza negative
COVID-19 negative
Check stool cultures and C. difficile
CT scan of abdomen pelvis done but pending report
ID consult
Pancytopenia:
Likely chemotherapy related but also infection could be contributing
WBC 1.2, hemoglobin 9.8, platelet count 66
ANC 49
Neutropenic precautions
Patient recalls that he received GCS treatment with his last chemotherapy.
Monitor cell counts closely
Oncology consult
Hyponatremia:
Sodium 133 today
Last sodium back in September was 133 as well
Monitor sodium trend
History metastatic colon cancer:
On chemotherapy as outpatient
He had been on FOLFOX in the past
Follows up with Dr. Huber from [place] as outpatient
IV Dilaudid as needed
History of bladder cancer:
s/p BCG treatment by urology as outpatient
Peripheral vascular disease:
Status post AAA repair in August 2023.
Hypertension:
Continue home antihypertensives with holding parameters.
Needs further clarification of home regimen of med rec.
Monitor blood pressure and adjust medications accordingly.
Hyperlipidemia:
Continue home statins
LFTs elevation of alkaline phosphatase:
Not related to statins rather to metastatic disease
Follow-up trend
CKD:
Avoid nephrotoxic
Monitor renal function closely
Monitor urine output
Creatinine today 1.3
COPD:
Not bronchospastic
No need for systemic steroids
Continue bronchodilators as needed
BPH:
Continue finasteride and tamsulosin
DVT prophylaxis:
SCDs
Avoid pharmacological prophylaxis due to thrombocytopenia but can consider down the road if platelet count are stable.
CODE STATUS:
DNR as per patient wishes
Time spent 75 minutes.
[2023-12-08 05:27] LABS: Lactic Acid 1.5 mmol/L (0.7-2.0)
[2023-12-08] MEDS: STERILE WATER FOR INJECTION 10 ML IV ×2 (06:50→17:46)
[2023-12-08] MEDS: MAXIPIME 1000 MG IV (06:50)
[2023-12-08] MEDS: VANCOCIN 300 MG IV (08:03)
[2023-12-08] MEDS: VANCOCIN 300 ML IV (08:03)
[2023-12-08 08:25] LABS: % Eosinophils 1.5 % (0-6); % Lymphocytes 66.7 % (20.5-51.1); % Monocytes 16.7 % (1.7-9.3); % Neutrophils 12.1 % (42.2-75.2); Absolute Lymphocytes 0.4 10^3/uL (1.2-3.4); Absolute Monocytes 0.1 10^3/uL (0.1-0.6); Absolute Neutrophils 0.1 10^3/uL (1.4-6.5); Hemoglobin 10.1 g/dL (13.0-18.0); Mean Corp Hgb Conc. 32.6 g/dL (33.0-37.0); Mean Corpuscular Hgb 30.9 pg (27.0-31.0); Mean Corpuscular Volume 94.8 fL (80.0-94.0); Mean Platelet Volume 9.5 fL (7.4-10.4); Nucleated Red Blood Cells % 0 % (-); Platelet Count 57 10^3/uL (130-400); Red Blood Cell Count 3.27 10^6/uL (4.70-6.10); Red Cell Dist. Width 17.4 % (11.5-14.5)
[2023-12-08 08:32] LABS: White Blood Cell Count 0.7 10^3/uL (4.8-10.8)
--- NOTE | 2023-12-08 08:37 | PHA.VAN.IN ---
Assessment
- Assessment
Renal Function: Appears similar to baseline
Renal Function may be Overestimated due to: age
Concomitant Antimicrobials: cefepime
AUC Dosing Plan
- Dosing Variables
Dosing Weight (kg): 80.4
Dosing CrCl (ml/min): 51
Vd coefficient (L/kg): 0.7
- Empiric Dosing
Initial / Loading Dose: 1500mg
Maintenance Regimen: 1250mg q24h
Estimated AUC (mcg*h/mL): 492
Estimated Peak (mcg*h/mL): 32.9
Estimated Trough (mcg/ml): 11.5
Estimated Half Life (H): 14.8
- Monitoring
No levels ordered at this time: consider at steady state
Pharmacokinetics Vancomycin I
- -
Patient Age: 73
Patient Sex: Male
Vancomycin Day #: 1
Indication: Bacteremia
Requesting Provider: Dr. Leigh
Pertinent Antimicrobial Allergies:
iodine=hives
Height / Weight:
Height 5 ft 10 in
Actual Weight 80.399 kg
IBW in k
- Vital Signs / Lab Results
Temp Pulse Resp BP Pulse Ox
98.8 F 81 18 147/65 98
12/08/23 06:17 12/08/23 06:17 12/08/23 06:17 12/08/23 06:17 12/08/23 06:17
Lab Results - Hematology
12/07/23 12/08/23
23:21 06:52
WBC 1.2 L* 0.7 L*
Band Neutrophils 4 H
Lab Results - Chemistry
12/07/23
23:21
BUN 19
Creatinine 1.3
Albumin 3.0 L
12/07/23 12/08/23
23:21 05:02
Lactic Acid 1.0 1.5
Lab Results - Urine
12/08/23
00:56
Urine Nitrite (Reflex) Negative
Leukocyte Esterase Rfl Negative
Urine WBC (Reflex) 0-2
Ur Squamous Epith Cells 3-5
Microbiology Results
12/07/23 23:21 Influenza Types A & B (NARGIS) - Final
Nasal Swab Negative for Influenza A & B, NAAT
Negative results must be combined with clinical observations
and patient history.
Nucleic Acid Amplification test (NAAT)performed on the
[employer] NOW platform.
[2023-12-08 08:54] LABS: ALT (SGPT) 13 U/L (0-50); AST (SGOT) 19 U/L (17-59); Albumin 2.9 g/dl (3.5-5.0); Alkaline Phosphatase 146 U/L (38-126); Blood Urea Nitrogen 21 mg/dl (9-20); Calcium 7.6 mg/dl (8.4-10.2); Carbon Dioxide 24 mmol/L (22-30); Chloride 103 mmol/L (98-107); Estimated Creatinine Clearance 44 ml/min; Glucose 104 mg/dl (70-99); Potassium 3.4 mmol/L (3.5-5.1); Sodium 135 mmol/L (135-145); Total Bilirubin 0.8 mg/dl (0.2-1.3); Total Protein 5.1 g/dl (6.3-8.2); eGFR 48.25
--- NOTE | 2023-12-08 08:55 | CON.ID ---
Consultation
-
Date/Time Consultation Requested: 12/08/2023 04:47
Date/Time Consultation Performed: 12/08/2023 08:00
Requesting Provider: Dr. Leigh
Performing Provider: Dr. Mir
Reason for Consultation: Febrile neutropenia
Chief Complaint / Past History
History of Present Illness
Duran Richmond is a 73-year-old man being evaluated at the request of Dr. Leigh in regards to febrile neutropenia. History is obtained from chart review, along with patient interview.
The patient has a significant past medical history of stage IV metastatic colon cancer and is maintained on palliative FOLFOX. He reports he recently received his sixth round on 11/28/2023. He reports receiving GCSF afterwards. He reports on
previous cycles he has had diarrhea, and has developed it again. He reports that yesterday he developed fever to 107 degrees at home progressive generalized weakness. He also admits to some diffuse abdominal cramping. Following discussion with
his oncologist, he was advised to come to the emergency room for further care.
His temperature was found to be 102.2 degrees, and his white count was found to be 1.2 with an ANC of approximately 100. He was started on empiric antibiotics and admitted to the general medical floor.
At this time he continues to feel lethargic. He denies a headache. He denies any cough or congestion. He has a port in place, but notes no difficulty with its use. He denies any dysuria.
Past History
Additional Past Medical History:
Hx bladder cancer (s/p BCG)
Stage IV metastatic colon cancer (on palliative FOLFOX)
BPH
CKD stage III
COPD
HTN
Dyslipidemia
Additional Past Surgical History:
AAA repair
Cholecystectomy
Right ACW Port-A-Cath
Allergy History:
iodine Allergy (Verified 10/19/23 00:20)
Hives
Medications Reviewed: Yes
Current Antibiotics:
Vancomycin
Cefepime 1 g IV every 12 hours
Social History
Tobacco: Former Smoker
Alcohol: None
Drug: None
Personal:
Living: With Family
Employment: Not Employed
Family History
Family History: Not Pertinent
Review of Systems
Vital Signs
Temp Pulse Resp BP Pulse Ox
98.8 F 81 18 147/65 98
12/08/23 06:17 12/08/23 06:17 12/08/23 06:17 12/08/23 06:17 12/08/23 06:17
Physical Exam
Physical Exam
Constitutional: No Acute Distress, Comfortable and Non-toxic
Head: Normocephalic
Eyes: Pupils Equal, Pupils Round, No Conjunctival Hemorrhage and Sclera Anicteric
Oral: No Thrush and No Ulcers
Cardiovascular: S1/S2; Negative S3/S4
Pulmonary: Clear; Negative Wheezes, Rales or Rhonchi
Gastrointestinal: Soft, Non Tender, Non Distended, Normal Bowel Sounds and No Rebound
Extremities: Negative Edema, Cyanosis or Erythema
Skin: Warm and Dry; Negative Rash or Jaundice
Neurological: Awake and Alert
Psychological: Calm
.
Lab / Diagnostic Study Results
12/08/23 06:52
12/08/23 06:52
Abs Immat Gran (auto) 0.0 10^3/uL (0-0.05) 12/08/23 06:52
Absolute Neuts (auto) 0.1 10^3/uL (1.4-6.5) L* 12/08/23 06:52
Absolute Lymphs (auto) 0.4 10^3/uL (1.2-3.4) L 12/08/23 06:52
Absolute Monos (auto) 0.1 10^3/uL (0.1-0.6) 12/08/23 06:52
Absolute Basos (auto) 0.0 10^3/uL (0-0.2) 12/08/23 06:52
Total Counted 100 12/07/23 23:21
Immature Gran % 0.0 % (0-0.5) 12/08/23 06:52
Neutrophils % 12.1 % (42.2-75.2) L 12/08/23 06:52
Lymphocytes % 66.7 % (20.5-51.1) H 12/08/23 06:52
Monocytes % 16.7 % (1.7-9.3) H 12/08/23 06:52
Eosinophils % 1.5 % (0-6) 12/08/23 06:52
Basophils % 3.0 % (0-2) H 12/08/23 06:52
Abs Neuts (Manual) 0.1 10^3/uL (1.4-6.5) L* 12/07/23 23:21
Segmented Neutrophils 11 % (42-75) L 12/07/23 23:21
Band Neutrophils 4 % (0-3) H 12/07/23 23:21
Lymphocytes (Manual) 59 % (20-51) H 12/07/23 23:21
Eosinophils (Manual) 4 % (0-6) 12/07/23 23:21
Lactic Acid 1.5 mmol/L (0.7-2.0) 12/08/23 05:02
Ur Squamous Epith Cells 3-5 /LPF (Few) 12/08/23 00:56
Microbiology Results
Micro:
12/08/23 05:02 C. difficile GDH Antigen & Toxins - Final
Feces/Stool Negative for toxigenic C.difficile
12/08/23 05:02 Salmonella/Shigella Culture - Pending
Feces/Stool Campylobacter Culture - Pending
Shiga Toxin Test - Pending
12/08/23 05:02 MRSA Screen - Pending
Nose
12/07/23 23:21 Influenza Types A & B (NARGIS) - Final
Nasal Swab Negative for Influenza A & B, NAAT
Negative results must be combined with clinical observations
and patient history.
Nucleic Acid Amplification test (NAAT)performed on the
[employer] NOW platform.
12/07/23 23:21 Blood Culture - Pending
Blood/Venous
12/07/23 23:21 Blood Culture - Pending
Blood/Venous
Imaging:
12/08/2023 CT abdomen/pelvis without contrast: No acute pathology of the abdomen or pelvis identified. Please see full dictation for additional detail.
Assessment / Plan
Febrile neutropenia
Stage IV colon cancer (on palliative chemotherapy)
Hx bladder cancer (s/p BCG)
Stage IV metastatic colon cancer (on palliative FOLFOX)
BPH
CKD stage III
COPD
HTN
Dyslipidemia
Recommendations:
Continue with cefepime. Current estimated creatinine clearance is ~44. Will increase cefepime to 2 g IV every 12 hours
Discontinue further vancomycin for now. Will continue to follow cultures and reinitiate if necessary.
Follow white count and ANC; await recovery.
Follow temperature curve.
Further recommendations as additional culture data is returned.
Care Review
Plan reviewed with: Physician
[2023-12-08] MEDS: FLOMAX 0.400000000000000022 MG PO ×2 (09:30→20:16)
[2023-12-08] MEDS: PEPCID 20 MG PO (09:31)
[2023-12-08] MEDS: CARDIZEM CD 240 MG PO (09:31)
--- NOTE | 2023-12-08 09:40 | W.PN.HOSP.TC ---
Today's Communication/Plan
-
see A/P
Assessment / Plan
Assessment / Plan
HPI: 73 years old man history of metastatic colon cancer, bladder cancer, CKD, presented to the hospital with neutropenic fever.
Patient had chemotherapy several days [employer] (he thinks it was last Sunday, and he is on a FOLFOX regimen) and since then he has been having diarrhea which is not unusual for him after chemotherapy.
He took some Imodium and diarrhea slowed down but still persisted. He also had a fever up to 101.7 F at home so called his oncologist and they instructed him to come to the ER for further evaluation.
He denies nausea or vomiting. He has been having associated generalized weakness, decreased appetite over the last several days and also intermittent mild to moderate intensity diffuse abdominal discomfort crampy in nature. He denies cough, denies
dysuria urgency or frequency or hematuria.
In the ER, temperature 102.2 Fahrenheit, WBC 1.2, low ANC, he is tachypneic but not tachycardic although he is on AV conrado modifying agents. He had a CT scan of the abdomen pending definitive report. He was referred to hospitalist service for
further evaluation.
CT AP:
No acute pathology of the abdomen or pelvis identified.
Mild bilateral renal atrophy.
Simple right renal cyst.
Mild diverticulosis. Mild fecal material throughout the colon.
Infrarenal abdominal aneurysm measuring 5.2 cm. Left common iliac artery aneurysm measuring 2.3 cm. Both stable.
Aortobiiliac stent graft. Stable
Limited evaluation without oral and IV contrast. Apparent known colonic malignancy and hepatic metastasis.
Mild bladder wall thickening. Stable. This can be seen with cystitis or bladder outlet obstruction.
A/P:
# Neutropenic fever
ANC of approximately 100.
ID on board, recc to cont cefepime and DC further Vancomycin
Follow blood culture, MRSA screen, follow stool Cx
Flu and COVID are negative, C diff negative,
Check CXR
CT AP unrevealing
ID on board
# Pancytopenia, due to chemotherapy
Neutropenic precautions
Patient recalls that he received GCS treatment with his last chemotherapy.
Monitor cell counts closely
Oncology consulted
# Mild Hyponatremia, resolved
# History metastatic colon cancer on chemotherapy as outpatient.
He had been on FOLFOX in the past
Follows up with Dr. Huber from [place] as outpatient
IV Dilaudid as needed
# History of bladder cancer, s/p BCG treatment by urology as outpatient
# Peripheral vascular disease
# Status post AAA repair in August 2023.
# Hypertension
Continue home antihypertensives with holding parameters.
Needs further clarification of home regimen of med rec.
Monitor blood pressure and adjust medications accordingly.
# Hyperlipidemia
Continue home statins
# Mildly elevated alkaline phosphatase
Not related to statins rather to metastatic disease
Follow-up trend
# CKD stage 3
Avoid nephrotoxic
Monitor renal function closely
Monitor urine output
Creatinine 1.5 today
# COPD
Continue bronchodilators as needed
# BPH
Continue finasteride and tamsulosin
DVT prophylaxis: SCDs. Avoid pharmacological prophylaxis due to thrombocytopenia but can consider down the road if platelet count are stable.
CODE STATUS: DNR as per patient wishes
DW daughter at bedside
Anticipated Discharge: > 48 hours
Subjective/Interval History
-
Date of Service: December 08, 2023
Objective Data
-
Labs:
Laboratory Results
12/07/23 12/08/23
23:21 06:52
WBC 1.2 L* 0.7 L*
Hgb 9.8 L 10.1 L
Hct 29.7 L 31.0 L
Plt Count 66 L 57 L
Sodium 133 L 135
Potassium 3.6 3.4 L
Chloride 101 103
Carbon Dioxide 27 24
BUN 19 21 H
Creatinine 1.3 1.5 H
Glucose 121 H 104 H
Calcium 7.8 L 7.6 L
Total Bilirubin 0.6 0.8
AST 20 19
ALT 12 13
Alkaline Phosphatase 159 H 146 H
Vital Signs:
Vital Signs
Temp Pulse Resp BP Pulse Ox
37.1 C 81 18 147/65 98
12/08/23 06:17 12/08/23 09:31 12/08/23 06:17 12/08/23 09:31 12/08/23 06:17
Review of Systems
-
Abdomen/GI: Reports Diarrhea and Other (intermittent abdominal cramp )
Physical Exam
-
General: Well Developed, Comfortable and Conversant
HEENT: Normocephalic, Atraumatic, Nose Appears Normal and Ears Appear Normal; Negative Oxygen
Respiratory: Clear to Auscultation and Non Labored Respirations; Negative Accessory Resp Muscle Use
Cardiac: Regular Rhythm and S1/S2
GI: Soft, Nontender, Nondistended and Normal Bowel Sounds
Skin: Warm and Dry
Neuro: Awake, Alert, Oriented and AO x 3
Psych: Calm and Intact Judgement/Insight
Data Reviewed
-
CT Scan: Report Reviewed by me
Labs: Labs Reviewed by me
--- NOTE | 2023-12-08 11:05 | CON.ONC ---
Impression
Impression
Neutropenic fever
Metastatic colon carcinoma
History of bladder carcinoma
Status post FOLFOX with Neulasta support at modified dose
Diarrhea with dehydration
Plan
Plan
IV fluids
Broad-spectrum antibiotics
Evaluate for C. difficile
Cultures pending
Consider G-CSF for protracted neutropenia
Symptomatic therapy for diarrhea likely secondary to cytotoxic chemotherapy
Outpatient evaluation for DPD
Follow CBC and electrolytes
Patient History
History of Present Illness
Patient 73 years old man history of metastatic colon cancer, bladder cancer, CKD, presented to the hospital with neutropenic fever following a second treatment with FOLFOX initiated 11/27. He had modified Neulasta dosing due to intolerance. He has
had severe diarrhea shaking chills and temperature last yesterday at which time he was referred to the emergency room for evaluation. He denies nausea or vomiting. He has been having associated generalized weakness, decreased appetite over the
last several days and also intermittent mild to moderate intensity diffuse abdominal discomfort crampy in nature. He denies cough, denies dysuria urgency or frequency or hematuria. Denies chest pain or shortness of breath. Denies any new rash.
Denies joint pain. In the ER, temperature 102.2 Fahrenheit with ANC 700 today. He had a CT scan without acute pathology limited by lack of IV contrast.
Past-Medical/Surgical History
Past Medical History
Past Medical History: Hypertension, hyperlipidemia, CKD, BPH, bladder cancer with routine BCG bladder washes, metastatic colon cancer started on chemotherapy
Past Surgical History:Abdominal aortic aneurysm repair, cystoscopy with bladder biopsies, cholecystectomy
Social History
Tobacco: Former Smoker
Alcohol: None
Drug: None
Family History
Family History: Not pertinent
Patient Medication
�Medication �Instructions �Recorded �Confirmed �Last Taken �Type
atorvastatin 20 mg tablet 20 mg PO QPM High Cholesterol 04/09/23 12/08/23 10/18/23 History
finasteride 5 mg tablet 5 mg PO QPM Urinary Issue 10/16/23 06/15/24 04/25/24 History
tamsulosin 0.4 mg capsule 0.4 mg PO BID Urinary Issue 04/09/23 12/08/23 10/18/23 History
fish, borage, flaxseed oils-omega 2 cap PO DAILY Supplement 05/29/23 12/08/23 10/18/23 History
3,6,9 cb #1 400 mg-400 mg-400 mg
cap ([place]ple [place] 3-6-9)
iohziqspkipf-qceoetnn-yfbddh tablet 1 tab PO DAILY Supplement 05/29/23 12/08/23 10/18/23 History
methenamine hippurate 1 gram tablet 1 g PO BID Urinary Issue 06/15/23 12/08/23 10/18/23 History
aspirin 81 mg chewable tablet 81 mg PO DAILY #90 tabs 09/07/23 12/08/23 12/07/23 10:00 Rx
(Children's Aspirin)
lidocaine-prilocaine 2.5 %-2.5 % 1 applic topical ONCE port access 09/24/23 12/08/23 Unknown History
topical cream site
acetaminophen 325 mg tablet 650 mg (2 x 325 mg) PO Q4HPRN PRN 10/19/23 12/08/23 Unknown Rx
mild pain/MCCANN/temp> 100.4F 30 days
#60 tabs
loratadine 10 mg tablet (Claritin) 10 mg PO DAILY PRN muscle/joint 10/19/23 12/08/23 Unknown Rx
pain #30 tabs
omeprazole 20 mg tablet,delayed 20 mg PO QPM Gastrointestinal Issue 10/19/23 12/08/23 Unknown History
release
amlodipine 5 mg tablet 5 mg PO DAILY Blood Pressure 12/08/23 12/08/23 Unknown History
carvedilol 6.25 mg tablet 6.25 mg PO BID Heart 12/08/23 12/08/23 Unknown History
Disease/Condition
Active Medications
Generic Name Dose Route Start Last Admin
Trade Name Freq PRN Reason Stop Dose Admin
Acetaminophen 650 mg 12/08/23 05:54
Acetaminophen 325 Mg Tablet PO 01/05/24 05:53
Q4HPRN PRN
mild pain/MCCANN/temp> 100.4F
Albuterol 1 puff 12/08/23 05:54
Albuterol Hfa [90 Mcg/Dose] Inhaler INH
R Q4HPRN PRN
sob/wheeze
Protocol
Amlodipine Besylate 5 mg 12/09/23 08:00
Amlodipine 5 Mg Tablet PO 01/06/24 07:59
DAILY POOL
Atorvastatin Calcium 20 mg 12/08/23 18:00
Atorvastatin (Lipitor) 20 Mg Tablet PO 01/05/24 17:59
QPM POOL
Bisacodyl 10 mg 12/08/23 05:54
Bisacodyl 10 Mg Rectal Suppository RECTAL 01/05/24 05:53
[id number] PRN
constipation
Carvedilol 6.25 mg 12/08/23 20:00
Carvedilol 6.25 Mg Tablet PO 01/05/24 19:59
BID POOL
Cefepime HCl 2,000 mg 12/08/23 18:00
Cefepime Hcl 2,000 Mg/12.5 Ml Vial IV
Q12H POOL
Famotidine 20 mg 12/08/23 08:00 12/08/23 09:31
Famotidine 20 Mg Tablet PO 01/05/24 07:59 20 mg
DAILY POOL Administration
Finasteride 5 mg 12/08/23 18:00
Finasteride 5 Mg Tablet PO 01/05/24 17:59
QPM POOL
Hydromorphone HCl 0.25 mg 12/08/23 04:46
Hydromorphone 0.25 Mg/0.5 Ml Syringe IV 12/22/23 04:45
Q4HPRN PRN
severe pain
Sodium Chloride 1,000 mls @ 85 mls/hr 12/08/23 05:00 12/08/23 06:44
Nss IV 1,000 mls
[id number] POOL Administration
Non-Formulary Medication 20 mg 12/08/23 18:00
Omeprazole PO 01/05/24 17:59
QPM POOL
Olodaterol 2 puff 12/08/23 08:00 12/08/23 07:48
Olodaterol (Striverdi Respimat) 2.5 Mcg Inhaler INH 01/05/24 07:59 Not Given
R DAILY POOL
Polyethylene Glycol 17 grams 12/08/23 05:54
Polyethylene Glycol Powder 17 Grams Packet PO 01/05/24 05:53
DAILYPRN PRN
constipation
Senna/Docusate Sodium 1 tablet 12/08/23 05:54
Docusate W/Senna (Miladis-Colace) Tablet PO 01/05/24 05:53
BIDPRN PRN
constipation
Sodium Chloride 0 flush 12/08/23 06:00
Sodium Chloride 0.9% (Flush) Syringe IV 01/05/24 05:59
PER PROTOCOL POOL
Sterile Water 10 ml 12/08/23 18:00
Sterile Water For Injection 10 Ml Vial IV 01/05/24 17:59
Q12H POOL
Tamsulosin HCl 0.4 mg 12/08/23 08:00 12/08/23 09:30
Tamsulosin 0.4 Mg Capsule PO 01/05/24 07:59 0.4 mg
BID POOL Administration
Tiotropium Mears 2 puff 12/08/23 08:00 12/08/23 07:47
Tiotropium (Spiriva Respimat) 2.5 Mcg Inhaler INH 01/05/24 07:59 Not Given
R DAILY POOL
Review of Systems
-
12 point review of systems fails to elicit additional complaints other than those reviewed above in the HPI
Physical Exam
-
Physical exam:
General: Acutely ill but nontoxic appearance
HEENT: Normocephalic, Atraumatic and Dry mucous Membranes
Respiratory: Clear to Auscultation; Negative Wheezes, Rales or Rhonchi
Cardiac: Regular Rhythm and S1/S2
GI: Soft, Nontender and Nondistended
Extremities: No Clubbing, No Cyanosis and No Edema
Neuro: Awake, Alert and Oriented
Psych: Calm
Labs
Lab Results
WBC 0.7 10^3/uL (4.8-10.8) L* 12/08/23 06:52
RBC 3.27 10^6/uL (4.70-6.10) L 12/08/23 06:52
Hgb 10.1 g/dL (13.0-18.0) L 12/08/23 06:52
Hct 31.0 % (39.0-52.0) L 12/08/23 06:52
MCV 94.8 fL (80.0-94.0) H 12/08/23 06:52
MCH 30.9 pg (27.0-31.0) 12/08/23 06:52
MCHC 32.6 g/dL (33.0-37.0) L 12/08/23 06:52
RDW 17.4 % (11.5-14.5) H 12/08/23 06:52
Plt Count 57 10^3/uL (130-400) L 12/08/23 06:52
MPV 9.5 fL (7.4-10.4) 12/08/23 06:52
Abs Immat Gran (auto) 0.0 10^3/uL (0-0.05) 12/08/23 06:52
Absolute Neuts (auto) 0.1 10^3/uL (1.4-6.5) L* 12/08/23 06:52
Absolute Lymphs (auto) 0.4 10^3/uL (1.2-3.4) L 12/08/23 06:52
Absolute Monos (auto) 0.1 10^3/uL (0.1-0.6) 12/08/23 06:52
Absolute Eos (auto) 0.0 10^3/uL (0-0.7) 12/08/23 06:52
Absolute Basos (auto) 0.0 10^3/uL (0-0.2) 12/08/23 06:52
Immature Gran % 0.0 % (0-0.5) 12/08/23 06:52
Neutrophils % 12.1 % (42.2-75.2) L 12/08/23 06:52
Lymphocytes % 66.7 % (20.5-51.1) H 12/08/23 06:52
Monocytes % 16.7 % (1.7-9.3) H 12/08/23 06:52
Eosinophils % 1.5 % (0-6) 12/08/23 06:52
Basophils % 3.0 % (0-2) H 12/08/23 06:52
Creatinine 1.5 mg/dL (0.7-1.3) H 12/08/23 06:52
Vital Signs
Vital Signs
Temp Pulse Resp BP Pulse Ox
98.8 F 81 18 147/65 98
12/08/23 06:17 12/08/23 09:31 12/08/23 06:17 12/08/23 09:31 12/08/23 06:17
[2023-12-08] MEDS: KCL 40 MEQ PO (11:19)
[2023-12-08 12:01] LABS: Glucose - Point of Care 106 mg/dl (70-99)
[2023-12-08] MEDS: TYLENOL 650 MG PO (15:23)
[2023-12-08] MEDS: PROTONIX 40 MG PO (17:46)
[2023-12-08] MEDS: LIPITOR 20 MG PO (17:46)
[2023-12-08] MEDS: PROSCAR 5 MG PO (17:46)
[2023-12-08] MEDS: MAXIPIME 2000 MG IV (17:48)
[2023-12-08] MEDS: COREG 6.25 MG PO (20:16)
[2023-12-08] MEDS: IMODIUM 2 MG PO (23:03)
[2023-12-09 03:55] VITALS: BP 95/51
[2023-12-09] MEDS: MAXIPIME 2000 MG IV ×2 (05:24→18:08)
[2023-12-09] MEDS: STERILE WATER FOR INJECTION 10 ML IV ×2 (05:24→18:08)
[2023-12-09] MEDS: NSS 1000 IV ×2 (05:25→16:12)
[2023-12-09 07:00] VITALS: BP 105/57
[2023-12-09 07:51] LABS: Hematocrit 23.7 % (39.0-52.0); Hemoglobin 8.1 g/dL (13.0-18.0); Mean Corp Hgb Conc. 34.2 g/dL (33.0-37.0); Mean Corpuscular Hgb 30.6 pg (27.0-31.0); Mean Corpuscular Volume 89.4 fL (80.0-94.0); Mean Platelet Volume 10.2 fL (7.4-10.4); Platelet Count 56 10^3/uL (130-400); Red Blood Cell Count 2.65 10^6/uL (4.70-6.10); Red Cell Dist. Width 18.1 % (11.5-14.5)
[2023-12-09 08:18] LABS: ALT (SGPT) < 10 U/L (0-50); AST (SGOT) 14 U/L (17-59); Albumin 2.3 g/dl (3.5-5.0); Alkaline Phosphatase 95 U/L (38-126); Blood Urea Nitrogen 25 mg/dl (9-20); Calcium 7.1 mg/dl (8.4-10.2); Carbon Dioxide 20 mmol/L (22-30); Chloride 107 mmol/L (98-107); Estimated Creatinine Clearance 41 ml/min; Glucose 98 mg/dl (70-99); Magnesium 1.2 mg/dl (1.6-2.3); Potassium 3.4 mmol/L (3.5-5.1); Sodium 135 mmol/L (135-145); Total Bilirubin 0.7 mg/dl (0.2-1.3); Total Protein 4.4 g/dl (6.3-8.2); eGFR 44.65
[2023-12-09] MEDS: FLOMAX 0.400000000000000022 MG PO ×2 (08:40→20:19)
[2023-12-09] MEDS: PEPCID 20 MG PO (08:40)
[2023-12-09] MEDS: COREG PO (08:42)
[2023-12-09] MEDS: IMODIUM 2 MG PO (08:44)
[2023-12-09 09:21] LABS: Band Neutrophils 4 % (0-3); Eosinophils 6 % (0-6); Lymphocytes 56 % (20-51); Monocytes 17 % (2-9); Segmented Neutrophils 17 % (42-75)
[2023-12-09 09:22] LABS: Absolute Neutrophils -Man Diff 0.4 10^3/uL (1.4-6.5); Platelets Checked Yes
[2023-12-09 09:23] LABS: Anisocytosis 1+; Hypochromasia Slight; Normal RBC Morphology No; Total Cells Counted 100
[2023-12-09 10:40] VITALS: BP 105/48
--- NOTE | 2023-12-09 10:59 | W.PN.HOSP.TC ---
Addendum entered and electronically signed by Jaqueline Alarcon MD 12/09/23 11:12:
ELECTRICAL PROSPECTING OBSERVER Norvas DC'ed (pt has not received anyway due to parameter/ hypotension)
will decrease ELECTRICAL PROSPECTING OBSERVER coreg to 3.125 BID (ELECTRICAL PROSPECTING OBSERVER 6.25 BID) with hold parameter
Original Note:
Today's Communication/Plan
-
see A/P
Assessment / Plan
Assessment / Plan
HPI: 73 years old man history of metastatic colon cancer, bladder cancer, CKD, presented to the hospital with neutropenic fever.
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
He took some Imodium and diarrhea slowed down but still persisted. He also had a fever up to 101.7 F at home so called his oncologist and they instructed him to come to the ER for further evaluation.
He denies nausea or vomiting. He has been having associated generalized weakness, decreased appetite over the last several days and also intermittent mild to moderate intensity diffuse abdominal discomfort crampy in nature. He denies cough, denies
dysuria urgency or frequency or hematuria.
In the ER, temperature 102.2 Fahrenheit, WBC 1.2, low ANC, he is tachypneic but not tachycardic although he is on AV conrado modifying agents. He had a CT scan of the abdomen pending definitive report. He was referred to hospitalist service for
further evaluation.
CT AP:
No acute pathology of the abdomen or pelvis identified.
Mild bilateral renal atrophy.
Simple right renal cyst.
Mild diverticulosis. Mild fecal material throughout the colon.
Infrarenal abdominal aneurysm measuring 5.2 cm. Left common iliac artery aneurysm measuring 2.3 cm. Both stable.
Aortobiiliac stent graft. Stable
Limited evaluation without oral and IV contrast. Apparent known colonic malignancy and hepatic metastasis.
Mild bladder wall thickening. Stable. This can be seen with cystitis or bladder outlet obstruction.
A/P:
# Neutropenic fever
ANC of approximately 100 on admission
cont cefepime
off further Vancomycin
Flu and COVID are negative, blood culture negative, MRSA screen negative, C diff negative, follow stool Cx
CXR no acute disease
CT AP unrevealing
ID on board
# Pancytopenia, due to chemotherapy
Neutropenic precautions
Patient recalls that he received GCS treatment with his last chemotherapy.
Monitor cell counts closely
Oncology consulted
# Mild Hyponatremia, resolved
# Hypokalemia
# hypomagnesemia
replete lytes
# History metastatic colon cancer on chemotherapy as outpatient.
He had been on FOLFOX in the past
Follows up with Dr. Huber from [facility] as outpatient
IV Dilaudid as needed
# History of bladder cancer, s/p BCG treatment by urology as outpatient
# Peripheral vascular disease
# Status post AAA repair in August 2023.
# Hypertension
Continue home antihypertensives with holding parameters.
Needs further clarification of home regimen of med rec.
Monitor blood pressure and adjust medications accordingly.
# Hyperlipidemia
Continue home statins
# Mildly elevated alkaline phosphatase
Not related to statins rather to metastatic disease
Follow-up trend
# CKD stage 3
Avoid nephrotoxic
Monitor renal function closely
Monitor urine output
Creatinine 1.5 today
# COPD
Continue bronchodilators as needed
# BPH
Continue finasteride and tamsulosin
DVT prophylaxis: SCDs. Avoid pharmacological prophylaxis due to thrombocytopenia but can consider down the road if platelet count are stable.
CODE STATUS: DNR as per patient wishes
DW daughter at bedside
Anticipated Discharge: 24 - 48 hours
Subjective/Interval History
-
Date of Service: December 09, 2023
Objective Data
-
Labs:
Laboratory Results
06/16/24
06:37
WBC 2.0 L*
Hgb 8.1 L
Hct 23.7 L
Plt Count 56 L
Sodium 135
Potassium 3.4 L
Chloride 107
Carbon Dioxide 20 L
BUN 25 H
Creatinine 1.6 H
Glucose 98
Calcium 7.1 L
Total Bilirubin 0.7
AST 14 L
ALT < 10
Alkaline Phosphatase 95
Vital Signs:
Vital Signs
Temp Pulse Resp BP Pulse Ox
37.1 C 60 17 105/48 98
12/09/23 10:40 12/09/23 10:40 12/09/23 10:40 12/09/23 10:40 12/09/23 10:40
I&O
12/08/23 12/09/23 12/10/23
06:59 06:59 06:59
Intake Total 2220 / 2220
Output Total 400 / 400
Balance 1820 / 1820
Review of Systems
-
Abdomen/GI: Reports Diarrhea and Other (intermittent abdominal cramp )
Physical Exam
-
General: Well Developed, Comfortable and Conversant
HEENT: Normocephalic, Atraumatic, Nose Appears Normal and Ears Appear Normal; Negative Oxygen
Respiratory: Clear to Auscultation and Non Labored Respirations; Negative Accessory Resp Muscle Use
Cardiac: Regular Rhythm and S1/S2
GI: Soft, Nontender, Nondistended and Normal Bowel Sounds
Skin: Warm and Dry
Neuro: Awake, Alert, Oriented and AO x 3
Psych: Calm and Intact Judgement/Insight
Data Reviewed
-
CT Scan: Report Reviewed by me
Labs: Labs Reviewed by me
[2023-12-09] MEDS: MAGNESIUM SULFATE 50 IV (11:19)
[2023-12-09] MEDS: KCL 40 MEQ PO (11:19)
--- NOTE | 2023-12-09 12:11 | W.PN.ONC ---
Today's Communication / Plan
-
IV fluids
Broad-spectrum antibiotics
Evaluate for C. difficile
Cultures positive for Enterococcus in the urine
Consider G-CSF for protracted neutropenia suspect improving with ANC of 400 today
Symptomatic therapy for diarrhea likely secondary to cytotoxic chemotherapy
Outpatient evaluation for DPD
Follow CBC and electrolytes
Impression
Impression
Neutropenic fever
Metastatic colon carcinoma
History of bladder carcinoma
Status post FOLFOX with Neulasta support at modified dose
Diarrhea with dehydration
Subjective/Objective
Subjective/Objective
Continues to feel poorly. Fatigued with continued loose stool.
Vital Signs:
Vital Signs
Temp Pulse Resp BP Pulse Ox
98.8 F 60 17 105/48 98
12/09/23 10:40 12/09/23 10:40 12/09/23 10:40 12/09/23 10:40 12/09/23 10:40
Physical exam unchanged
Lab Results:
Laboratory Data
WBC 2.0 10^3/uL (4.8-10.8) L* 12/09/23 06:37
Hgb 8.1 g/dL (13.0-18.0) L 12/09/23 06:37
Plt Count 56 10^3/uL (130-400) L 12/09/23 06:37
eGFR 44.65 12/09/23 06:37
--- NOTE | 2023-12-09 12:15 | W.PN.ID1 ---
Date of Service
Date of Service: December 09, 2023
Today's Communication
Continue cefepime for today.
Assessment / Plan
Febrile neutropenia
Stage IV colon cancer (on palliative chemotherapy)
Hx bladder cancer (s/p BCG)
Stage IV metastatic colon cancer (on palliative FOLFOX)
BPH
CKD stage III
COPD
HTN
Dyslipidemia
Recommendations:
Continue with cefepime.
Follow white count and ANC; await recovery.
Follow temperature curve.
Further recommendations as additional culture data is returned.
Chief Complaint
-: Other (Febrile neutropenia)
Subjective / Review of Systems
Review of Systems: No Fever
Vital Signs / Physical Exam
Vital Signs
Vital Signs
Temp Pulse Resp BP Pulse Ox
98.8 F 60 17 105/48 98
12/09/23 10:40 12/09/23 10:40 12/09/23 10:40 12/09/23 10:40 12/09/23 10:40
Physical Exam
Constitutional: No Acute Distress, Comfortable and Non-toxic
Eyes: Sclera Anicteric
Cardiovascular: S1/S2; Negative S3/S4 or Murmur
Pulmonary: Clear; Negative Wheezes, Rales or Rhonchi
Gastrointestinal: Soft, Non Tender and Non Distended
Extremities: Negative Edema, Cyanosis or Erythema
Skin: Negative Rash or Jaundice
Neurological: Awake and Alert
Psychological: Calm
Objective Data
Lab Data
Lab Results
12/09/23 06:37
12/09/23 06:37
Estimated Creat Clear 41 ml/min 12/09/23 06:37
Lactic Acid 1.5 mmol/L (0.7-2.0) 12/08/23 05:02
Total Bilirubin 0.7 mg/dl (0.2-1.3) 12/09/23 06:37
AST 14 U/L (17-59) L 12/09/23 06:37
ALT < 10 U/L (0-50) 12/09/23 06:37
Alkaline Phosphatase 95 U/L (38-126) 12/09/23 06:37
Most recent labs reviewed.
Micro Results:
12/08/23 05:02 Salmonella/Shigella Culture - Preliminary
Feces/Stool Culture in Progress
Campylobacter Culture - Preliminary
Culture in Progress
Shiga Toxin Test - Pending
12/08/23 05:02 MRSA Screen - Final
Nose No Methicillin Resistant Staphylococcus aureus isolated.
12/07/23 23:21 Blood Culture - Preliminary
Blood/Venous No Growth in 24 hours- Final report to follow
12/07/23 23:21 Blood Culture - Preliminary
Blood/Venous No Growth in 24 hours- Final report to follow
12/08/23 05:02 C. difficile GDH Antigen & Toxins - Final
Feces/Stool Negative for toxigenic C.difficile
12/07/23 23:21 Influenza Types A & B (NARGIS) - Final
Nasal Swab Negative for Influenza A & B, NAAT
Negative results must be combined with clinical observations
and patient history.
Nucleic Acid Amplification test (NAAT)performed on the
[employer] platform.
Imaging:
12/08/2023 CT abdomen/pelvis without contrast: No acute pathology of the abdomen or pelvis identified. Please see full dictation for additional detail.
[2023-12-09 15:00] VITALS: BP 110/62
[2023-12-09] MEDS: LIPITOR 20 MG PO (18:07)
[2023-12-09] MEDS: PROTONIX 40 MG PO (18:07)
[2023-12-09] MEDS: PROSCAR 5 MG PO (18:08)
[2023-12-09 19:39] VITALS: BP 131/54
[2023-12-09] MEDS: COREG 3.125 MG PO (20:19)
[2023-12-09 23:45] VITALS: BP 143/59
[2023-12-10] MEDS: NSS 1000 IV (02:18)
[2023-12-10 02:37] VITALS: BP 129/62
[2023-12-10] MEDS: TUMS 2 TABLET PO (03:39)
[2023-12-10 03:44] VITALS: BP 125/57
[2023-12-10 05:44] LABS: Hematocrit 24.4 % (39.0-52.0); Hemoglobin 8.2 g/dL (13.0-18.0); Mean Corp Hgb Conc. 33.6 g/dL (33.0-37.0); Mean Corpuscular Hgb 31.2 pg (27.0-31.0); Mean Corpuscular Volume 92.8 fL (80.0-94.0); Mean Platelet Volume 10.2 fL (7.4-10.4); Nucleated Red Blood Cells % 0 % (-); Platelet Count 63 10^3/uL (130-400); Red Blood Cell Count 2.63 10^6/uL (4.70-6.10); White Blood Cell Count 4.7 10^3/uL (4.8-10.8)
[2023-12-10] MEDS: MAXIPIME 2000 MG IV (05:58)
[2023-12-10] MEDS: STERILE WATER FOR INJECTION 10 ML IV (05:58)
[2023-12-10 06:26] LABS: ALT (SGPT) 11 U/L (0-50); AST (SGOT) 15 U/L (17-59); Albumin 2.3 g/dl (3.5-5.0); Alkaline Phosphatase 97 U/L (38-126); Blood Urea Nitrogen 20 mg/dl (9-20); Calcium 7.5 mg/dl (8.4-10.2); Carbon Dioxide 21 mmol/L (22-30); Chloride 109 mmol/L (98-107); Estimated Creatinine Clearance 47 ml/min; Glucose 97 mg/dl (70-99); Magnesium 1.7 mg/dl (1.6-2.3); Potassium 3.5 mmol/L (3.5-5.1); Sodium 136 mmol/L (135-145); Total Bilirubin 0.4 mg/dl (0.2-1.3); Total Protein 4.5 g/dl (6.3-8.2); eGFR 52.41
[2023-12-10 07:00] VITALS: BP 117/60
[2023-12-10 08:00] LABS: Absolute Neutrophils -Man Diff 2.2 10^3/uL (1.4-6.5); Band Neutrophils 7 % (0-3); Lymphocytes 37 % (20-51); Monocytes 12 % (2-9); Segmented Neutrophils 41 % (42-75)
[2023-12-10 08:01] LABS: Atypical Lymphocytes 3 %
[2023-12-10 08:02] LABS: Anisocytosis 1+; Hypochromasia 1+; Macrocytosis 1+; Normal RBC Morphology No; Platelets Checked Yes; Total Cells Counted 100
[2023-12-10] MEDS: COREG 3.125 MG PO (08:36)
[2023-12-10] MEDS: PEPCID 20 MG PO (08:36)
[2023-12-10] MEDS: FLOMAX 0.400000000000000022 MG PO (08:36)
--- NOTE | 2023-12-10 10:53 | W.PN.ID1 ---
Date of Service
Date of Service: December 10, 2023
Today's Communication
Discontinue cefepime.
Assessment / Plan
Febrile neutropenia
Stage IV colon cancer (on palliative chemotherapy)
Hx bladder cancer (s/p BCG)
Stage IV metastatic colon cancer (on palliative FOLFOX)
BPH
CKD stage III
COPD
HTN
Dyslipidemia
Recommendations:
White count recovered. Current ANC 2200.
Cultures negative. Fevers resolved.
D/C further antibiotics
Chief Complaint
-: Other (Febrile neutropenia)
Subjective / Review of Systems
Patient seen and examined. Overall feels well.
Vital Signs / Physical Exam
Vital Signs
Vital Signs
Temp Pulse Resp BP Pulse Ox
97.7 F 70 17 117/60 97
12/10/23 07:00 12/10/23 08:36 12/10/23 07:00 12/10/23 08:36 12/10/23 07:00
Physical Exam
Constitutional: No Acute Distress, Comfortable and Non-toxic
Eyes: Sclera Anicteric
Cardiovascular: S1/S2; Negative S3/S4
Pulmonary: Non Labored
Gastrointestinal: Soft and Non Tender
Neurological: AO x 3
Psychological: Calm
Objective Data
Lab Data
Lab Results
12/10/23 05:28
12/10/23 05:28
Estimated Creat Clear 47 ml/min 12/10/23 05:28
Lactic Acid 1.5 mmol/L (0.7-2.0) 12/08/23 05:02
Total Bilirubin 0.4 mg/dl (0.2-1.3) 12/10/23 05:28
AST 15 U/L (17-59) L 12/10/23 05:28
ALT 11 U/L (0-50) 06/17/24 05:28
Alkaline Phosphatase 97 U/L (38-126) 12/10/23 05:28
Most recent labs reviewed.
Micro Results:
12/08/23 05:02 Salmonella/Shigella Culture - Final
Feces/Stool No Salmonella, Shigella, Aeromonas or Plesiomonas species
isolated.
Campylobacter Culture - Final
No Campylobacter species isolated.
Shiga Toxin Test - Final
No E. coli Shiga Toxin 1 or 2 detected.
12/07/23 23:21 Blood Culture - Preliminary
Blood/Venous No Growth in 48 hours- Final report to follow
12/07/23 23:21 Blood Culture - Preliminary
Blood/Venous No Growth in 48 hours- Final report to follow
12/08/23 05:02 MRSA Screen - Final
Nose No Methicillin Resistant Staphylococcus aureus isolated.
12/08/23 05:02 C. difficile GDH Antigen & Toxins - Final
Feces/Stool Negative for toxigenic C.difficile
12/07/23 23:21 Influenza Types A & B (NARGIS) - Final
Nasal Swab Negative for Influenza A & B, NAAT
Negative results must be combined with clinical observations
and patient history.
Nucleic Acid Amplification test (NAAT)performed on the
[employer] platform.
Imaging:
12/08/2023 CT abdomen/pelvis without contrast: No acute pathology of the abdomen or pelvis identified. Please see full dictation for additional detail.
Care Review
Plan reviewed with: Physician (Hospitalist)
[2023-12-10 11:00] VITALS: BP 134/71
--- NOTE | 2023-12-10 11:18 | CM ---
Met with pt and daughter at bedside
Pt lives alone in a mobile home. Family members live nearby - supportive and assist as needed
Pt or family provide meals, independent, currently not driving
Has ride at discharge
Currently receiving chemo, stage 4 colon CA
DME - none
SNF/HH - denies hx
PCP - Dr Edwards
Pharm - [facility]
Discussed IMM
For d/c today
Plan - home - no needs
--- NOTE | 2023-12-10 11:58 | W.PN.HOSP.TC ---
Addendum entered and electronically signed by Paolo Sewell MD 12/11/23 16:02:
[id number]
Addendum entered and electronically signed by Paolo Sewell MD 12/11/23 15:51:
CKD 3 with rise in creatinine only
Severe Protein Calorie Malnutrition
Original Note:
Today's Communication/Plan
-
dc further abx
f/u cbc, bmp outpatient
F/u CBC, BMP outpatient
Assessment / Plan
Assessment / Plan
HPI: 73 years old man history of metastatic colon cancer, bladder cancer, CKD, presented to the hospital with neutropenic fever.
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
He took some Imodium and diarrhea slowed down but still persisted. He also had a fever up to 101.7 F at home so called his oncologist and they instructed him to come to the ER for further evaluation.
He denies nausea or vomiting. He has been having associated generalized weakness, decreased appetite over the last several days and also intermittent mild to moderate intensity diffuse abdominal discomfort crampy in nature. He denies cough, denies
dysuria urgency or frequency or hematuria.
In the ER, temperature 102.2 Fahrenheit, WBC 1.2, low ANC, he is tachypneic but not tachycardic although he is on AV conrado modifying agents. He had a CT scan of the abdomen pending definitive report. He was referred to hospitalist service for
further evaluation.
CT AP:
No acute pathology of the abdomen or pelvis identified.
Mild bilateral renal atrophy.
Simple right renal cyst.
Mild diverticulosis. Mild fecal material throughout the colon.
Infrarenal abdominal aneurysm measuring 5.2 cm. Left common iliac artery aneurysm measuring 2.3 cm. Both stable.
Aortobiiliac stent graft. Stable
Limited evaluation without oral and IV contrast. Apparent known colonic malignancy and hepatic metastasis.
Mild bladder wall thickening. Stable. This can be seen with cystitis or bladder outlet obstruction.
A/P:
# Neutropenic fever, resolved
-Afebrile >24 hours, ANC 2200
-DC further abx
-F/u CBC outpatient
-appreciate ID, onc
Flu and COVID are negative, blood culture negative, MRSA screen negative, C diff negative, stool neg
CXR no acute disease
CT AP unrevealing
# Pancytopenia, due to chemotherapy
Neutropenic precautions
Patient recalls that he received GCS treatment with his last chemotherapy.
Monitor cell counts closely
Oncology consulted
F/u Onc outpatient
F/u CBC outpatient
# Mild Hyponatremia, resolved
# Hypokalemia
# hypomagnesemia
replete lytes
# History metastatic colon cancer on chemotherapy as outpatient.
He had been on FOLFOX in the past
Follows up with Dr. Huber from [facility] as outpatient
# History of bladder cancer, s/p BCG treatment by urology as outpatient
# Peripheral vascular disease
# Status post AAA repair in August 2023.
# Hypertension
Continue home antihypertensives with holding parameters.
Needs further clarification of home regimen of med rec.
Monitor blood pressure and adjust medications accordingly.
# Hyperlipidemia
Continue home statins
# Mildly elevated alkaline phosphatase
Not related to statins rather to metastatic disease
Follow-up trend
# CKD stage 3
Avoid nephrotoxic
Monitor renal function closely
Monitor urine output
Creatinine 1.5 today
# COPD
Continue bronchodilators as needed
# BPH
Continue finasteride and tamsulosin
DVT prophylaxis: SCDs. Avoid pharmacological prophylaxis due to thrombocytopenia but can consider down the road if platelet count are stable.
CODE STATUS: DNR as per patient wishes
DW daughter at bedside
More than 30 minutes spent in discharge including
Final examination of the patient
Summarizing hospital stay
Instructions for continuing care to all relevant caregivers
Preparation of discharge records, prescriptions, and referral forms
Total time spent (35 in minutes):
Anticipated Discharge: Today
Subjective/Interval History
-
Date of Service: December 10, 2023
afebrile ->24 hours
Objective Data
-
Labs:
Laboratory Results
12/10/23
05:28
WBC 4.7 L
Hgb 8.2 L
Hct 24.4 L
Plt Count 63 L
Sodium 136
Potassium 3.5
Chloride 109 H
Carbon Dioxide 21 L
BUN 20
Creatinine 1.4 H
Glucose 97
Calcium 7.5 L
Total Bilirubin 0.4
AST 15 L
ALT 11
Alkaline Phosphatase 97
Vital Signs:
Vital Signs
Temp Pulse Resp BP Pulse Ox
98.4 F 62 17 134/71 96
12/10/23 11:00 12/10/23 11:00 12/10/23 11:00 12/10/23 11:00 12/10/23 11:30
I&O
12/09/23 12/10/23 12/11/23
06:59 06:59 06:59
Intake Total 2220 / 2220 540 / 540 480 / 480
Output Total 400 / 400 425 / 425 200 / 200
Balance 1820 / 1820 115 / 115 280 / 280
Physical Exam
-
General: Well Developed, Comfortable and Conversant
HEENT: Normocephalic, Atraumatic, Nose Appears Normal and Ears Appear Normal; Negative Oxygen
Respiratory: Clear to Auscultation and Non Labored Respirations; Negative Accessory Resp Muscle Use
Cardiac: Regular Rhythm and S1/S2
GI: Soft, Nontender, Nondistended and Normal Bowel Sounds
Skin: Warm and Dry
Neuro: Awake, Alert, Oriented and AO x 3
Psych: Calm and Intact Judgement/Insight
Data Reviewed
-
CT Scan: Report Reviewed by me
Labs: Labs Reviewed by me
--- NOTE | 2023-12-10 12:07 | W.DS.TRANS ---
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
-
Discharge Instructions:
Discharge Diagnosis/Procedures Febrile neutropenia
Diet Low Cholesterol,Low Fat
Activity As tolerated
Blood Work cbc and bmp with pcp/oncology in 1 week
Instructions:
Stand-Alone Forms:
Changes to Home Medications: Yes
Discharge Medications:
DC Medications w/original date entered in [employer]
atorvastatin 20 mg tablet 20 mg PO QPM High Cholesterol 04/09/23
finasteride 5 mg tablet 5 mg PO QPM Urinary Issue 04/09/23
tamsulosin 0.4 mg capsule 0.4 mg PO BID Urinary Issue 04/09/23
fish, borage, flaxseed oils-omega 3,6,9 cb #1 400 mg-400 mg-400 mg cap (Triple [place] 3-6-9) 2 cap PO DAILY Supplement 05/29/23
kufnwggcrnrl-tzwfqvne-jrseiv tablet 1 tab PO DAILY Supplement 05/29/23
methenamine hippurate 1 gram tablet 1 g PO BID Urinary Issue 06/15/23
aspirin 81 mg chewable tablet (Children's Aspirin) 81 mg PO DAILY #90 tabs 09/07/23
lidocaine-prilocaine 2.5 %-2.5 % topical cream 1 applic topical ONCE port access site 09/24/23
acetaminophen 325 mg tablet 650 mg (2 x 325 mg) PO Q4HPRN PRN mild pain/MCCANN/temp> 100.4F 30 days #60 tabs 10/19/23
loratadine 10 mg tablet (Claritin) 10 mg PO DAILY PRN muscle/joint pain #30 tabs 10/19/23
omeprazole 20 mg tablet,delayed release 20 mg PO QPM Gastrointestinal Issue 10/19/23
amlodipine 5 mg tablet 5 mg PO DAILY Blood Pressure 12/08/23
carvedilol 3.125 mg tablet 3.125 mg PO BID 30 days #60 tabs 12/10/23
Home Medication Changes
hold amlodipine
Reduce Coreg
Pending Results: No
--- NOTE | 2023-12-10 15:12 | PN.CDI ---
CDI
- -
CDI:
Physician Documentation Request
Admit Date: 12/08/23 04:53
Dear Doctor Donato,
Clinical Indicators:
Patient admitted with neutropenic fever. PMH includes colon cancer, currently undergoing chemotherapy.
12/07 note/assessment: -Intake Assessment: Poor (average < 50%)
-'Significant 33lb, 18.6% wt loss x 6months.'
-'Pt meets criteria for severe protein calorie malnutrition of chronic illness with
>10% wt loss x 6mo, prolonged poor intake <75% x >1month'
Based on the above information and your assessment, which of the following most accurately represents the patient's nutritional status?
Severe Protein Calorie Malnutrition
Moderate Protein Calorie Malnutrition
Mild Protein Calorie Malnutrition
Other (please specify)
[place] Criteria ([facility]ist 2017)
2 or more criteria must be present for either
non severe or severe malnutrition
Note that the criteria differs related to the
presence of an acute or chronic illness
Acute Illness Chronic Illness
Energy Intake Non Severe: <75% for >7 days Non Severe: <75% for >1 month
Severe: <50% for >5 days Severe: <75% for >1 month
Weight Loss Non Severe: 1-2% over 1 week Non Severe: 5% over 1 month
5% over 1 month 7.5% over 3 months
7.5% over 3 months 10% over 6 months
1 year N/A 20% over 1 year
Severe: >2% over 1 week Severe: >5% over 1 month
>5% over 1 month >7.5% over 3 months
>7.5% over 3 months >10% over 6 months
1 year N/A >20% over 1 year
Body Fat Non Severe: Mild Decrease Non Severe: Mild Loss
Severe: Moderate Decrease Severe: Severe Loss
Muscle Mass Non Severe: Mild Decrease Non Severe: Mild Loss
Severe: Moderate Decrease Severe: Severe Loss
Fluid Accumulation Non Severe: Mild Accumulation Non Severe: Mild Accumulation
Severe: Moderate to severe Severe: Moderate to severe
accumulation accumulation
Reduced Software Systems Analyst Strength Non Severe: N/A Non Severe: N/A
Severe: Measurably reduced Severe: Measurably reduced
Additional criteria that can be used to Determine if Mild or Moderate Malnutrition (Merck Manual 2018)
Mild Moderate Severe
Albumin gm/dl <3.0 gm/dl <2.5 gm/dl <2.0 gm/dl
Pre Albumin mg/dl <15 gm/dl <10 mg/dl <5.0 mg/dl
BMI <18.5 <17 <16
Use of terms such as suspected, likely, concern for, or probable (associated with a specific diagnosis that is being evaluated, monitored, or treated as if it exists) are acceptable and can be coded in the inpatient setting, when documented at the
time of discharge.
Thank you,
MANUEL Barreto RN
CDI Specialist
available via tiger text
Please use your independent medical judgment in providing your response.
--- NOTE | 2023-12-10 15:20 | PN.CDI ---
CDI
- -
CDI:
Physician Documentation Request
Admit Date: 12/08/23 04:53
Dear Doctor Donato,
Clinical Indicators:
Patient admitted with neutropenic fever. PMH includes colon cancer, currently undergoing chemotherapy.
12/09 PN, 'CKD stage 3'
CR/GFR trend:
12/07/23 12/08/23 12/09/23
23:21 06:52 06:37
Creatinine 1.3 1.5 H 1.6 H
eGFR 57.29 48.25 44.65
Clarify which of the following accurately represents the patient's renal status:
BANDAR on CKD 3
CKD 3 with rise in creatinine only
Other, please specify
Criteria for BANDAR*
1 Increase in serum creatinine by > or = to 0.3 mg/dL (> or = to 26.5 micromol/L) within 48 hours, OR
2 Increase in serum creatinine to > or = to 1.5 times baseline, which is known or presumed to have occurred within 7 days, OR
3 Urine volume < 0.5 nL/kg/hour for six hours
Stages of Chronic Kidney Disease*
Level Description GFR
G1 Normal or High >90
G2 Mildly decreased 60-89
G3a Mildly to moderately decreased 45-59
G3b Moderately to severely decreased 30-44
G4 Severely decreased 15-29
G5 Kidney failure <15
Use of terms such as suspected, likely, concern for, or probable (associated with a specific diagnosis that is being evaluated, monitored, or treated as if it exists) are acceptable and can be coded in the inpatient setting, when documented at the
time of discharge.
Thank you,
MANUEL Barreto RN
CDI Specialist
available via tiger text
Please use your independent medical judgment in providing your response.
*Source: Kidney Disease: Improving Global Outcomes (KDIGO) 2012
== END 2023-12-10 16:27 | disposition home or self-care (01) | DRG 808 ==
LOC: 3 WEST ACU 04:53
PROVIDERS: Internal Medicine; ADMITTING PHYSICIAN Hospitalist; ATTENDING PHYSICIAN Internal Medicine; CONSULT PHYSICIAN Internal Medicine Hematology & Oncology; CONSULT PHYSICIAN Internal Medicine Infectious Disease; EMERGENCY PHYSICIAN Emergency Medicine; FAMILY PHYSICIAN Family Medicine
DX: D70.9 Neutropenia, unspecified (principal); E43 Unspecified severe protein-calorie malnutrition; C18.9 Malignant neoplasm of colon, unspecified; E87.1 Hypo-osmolality and hyponatremia; R50.81 Fever presenting with conditions classified elsewhere; D61.810 Antineoplastic chemotherapy induced pancytopenia; I12.9 Hypertensive chronic kidney disease with stage 1 through stage 4 chronic kidney disease, or unspecified chronic kidney disease; N18.30 Chronic kidney disease, stage 3 unspecified; E87.6 Hypokalemia; T45.1X5A Adverse effect of antineoplastic and immunosuppressive drugs, initial encounter
CPT/HCPCS: 71046; 74176; 80053; 81003; 81015; 82962; 83605; 83690; 83735; 85025; 87040; 87045; 87046; 87070; 87324; 87427; 87449; 87502; 87811; 96361; 96365; 99285

== ENCOUNTER → 2023-12-24 09:04 | Outpatient (REF) | payer MEDICARE, OTHER, SELFPAY | LOC: RAD 09:04 | PROVIDERS: ATTENDING PHYSICIAN Surgery Vascular Surgery; FAMILY PHYSICIAN Family Medicine | DX: I71.43 Infrarenal abdominal aortic aneurysm, without rupture (principal) | CPT/HCPCS: 93975 ==

== ENCOUNTER 2024-02-07 22:08 | Emergency (ER) | payer MEDICARE, OTHER, SELFPAY ==
[2024-02-07 22:17] VITALS: BP 98/60
[2024-02-07 23:27] VITALS: BP 126/71
[2024-02-07] MEDS: NSS 1000 IV (23:29)
[2024-02-07 23:54] LABS: Hematocrit 30.1 % (39.0-52.0); Hemoglobin 10.5 g/dL (13.0-18.0); Mean Corp Hgb Conc. 34.9 g/dL (33.0-37.0); Mean Corpuscular Hgb 31.9 pg (27.0-31.0); Mean Corpuscular Volume 91.5 fL (80.0-94.0); Platelet Count 100 10^3/uL (130-400); Red Blood Cell Count 3.29 10^6/uL (4.70-6.10); Red Cell Dist. Width 17.2 % (11.5-14.5); White Blood Cell Count 8.2 10^3/uL (4.8-10.8)
[2024-02-08] VITALS: BP 119/79
[2024-02-08 00:01] LABS: ALT (SGPT) 14 U/L (0-50); AST (SGOT) 24 U/L (17-59); Albumin 3.1 g/dl (3.5-5.0); Alkaline Phosphatase 178 U/L (38-126); Blood Urea Nitrogen 22 mg/dl (9-20); Calcium 8.1 mg/dl (8.4-10.2); Carbon Dioxide 22 mmol/L (22-30); Chloride 105 mmol/L (98-107); Glucose 123 mg/dl (70-99); Potassium 3.3 mmol/L (3.5-5.1); Sodium 133 mmol/L (135-145); Total Bilirubin 0.7 mg/dl (0.2-1.3); Total Protein 5.4 g/dl (6.3-8.2); eGFR > 60.00
[2024-02-08 00:04] LABS: COVID-19 Antigen Negative (Negative)
[2024-02-08 00:17] LABS: % Basophils 0.9 % (0-2); % Eosinophils 0.6 % (0-6); % Immature Granulocytes 0.7 % (0-0.5); % Lymphocytes 14.4 % (20.5-51.1); % Monocytes 9.6 % (1.7-9.3); % Neutrophils 73.8 % (42.2-75.2); Absolute Basophils 0.1 10^3/uL (0-0.2); Absolute Eosinophils 0.1 10^3/uL (0-0.7); Absolute Immature Granulocytes 0.1 10^3/uL (0-0.05); Absolute Lymphocytes 1.2 10^3/uL (1.2-3.4); Absolute Monocytes 0.8 10^3/uL (0.1-0.6); Absolute Neutrophils 6.1 10^3/uL (1.4-6.5); Nucleated Red Blood Cells % 0 % (-)
[2024-02-08] MEDS: KCL 40 MEQ PO (00:55)
[2024-02-08] MEDS: AUGMENTIN 875 MG/125 MG 1 TABLET PO (00:55)
[2024-02-08 01:01] VITALS: BP 119/79
--- NOTE | 2024-02-08 01:28 | ED.GENMED ---
History of Present Illness
General
Chief Complaint: Fever
Source: patient
Exam Limitations: none
Time Seen by Provider: 02/07/24 22:43
Nursing documentation reviewed up to this point in time: agreed with
History of Present Illness
History of Present Illness:
73-year-old male with past medical history as documented notable for metastatic colon cancer who presents to the emergency room with his daughters for evaluation of diarrhea and fever. Patient notably is receiving chemotherapy via [facility] (primarily through [facility] [place]). His last treatment was 01/30/2024. Since then he has been feeling general fatigue which is not unusual for him. This has been worse over the past 2 days or so and accompanied by significant nonbloody
diarrhea. Today had a fever of 101 �F and took Tylenol prior to arrival. Directed to come to the emergency room to be evaluated. He denies any cough or shortness of breath. Denies any chest pain. He has had some nausea but no vomiting. He does
report occasional crampy abdominal pain. He denies any dysuria, hematuria, increase in urinary frequency. He does admit that his urine has been actually slightly less frequent recently and believes he is dehydrated.
Past History
Past History
ED Past Medical History: Cancer (Colon cancer), HTN, Hypercholesterolemia, Other (AAA) and Other (BPH/prostatitis)
ED Past Surgical History: Cholecystectomy and Tonsilectomy
Social History
Tobacco: Former smoker
Alcohol: None
Drug: None
Personal:
Living: with family
Review of Systems
Review of Systems
All Other Systems: ROS reviewed and negative except as documented in HPI and ROS
Constitutional: Reports fever, fatigue and chills
EENT: Denies sore throat or runny nose
Respiratory: Denies cough or trouble breathing
Cardiac: Denies chest pain or palpitations
ABD/GI: Reports abdominal pain, nausea and diarrhea; Denies vomiting or bloody stools
: Denies dysuria, frequency, flank pain or bleeding
Musculoskeletal: Denies neck pain or back pain
Neurological: Denies dizzy or headache
Phy Exam
Physical Exam
Physical Exam:
General: Awake, alert, nontoxic
Head: Normocephalic, atraumatic
Eyes: Conjunctiva normal, sclera anicteric
Throat: Airway intact, handling secretions
Neck: Trachea midline, supple without meningismus
Lungs: Clear to auscultation bilaterally, no wheezing, rales, rhonchi
Heart: Regular rate and rhythm, no murmurs, gallops, or rubs; right chest wall tunneled catheter no erythema or warmth of the area
Abd: Soft, non distended, minimally tender periumbilical region, no abdominal masses, no rebound or guarding
Neuro: No gross deficits
Skin: no rash
Extremities: No edema in extremities, warm and well-perfused
Scores
Heart Failure Risk
Heart Failure Risk Score: Not Applicable
Heart Score for Chest Pain Patients
STEMI patient?: Not applicable
Withdrawal Assessment of Alcohol
Withdrawal Assessment Completed?: Not applicable
Course
Orders/Labs/Results
Orders:
Orders
02/07/24 22:44
CR Chest - 2 Views Urgent
Comment:
Reason For Exam: fever
02/07/24 23:08
0.9% Sodium Chloride 1000 ml [Nss] 1,000 ml IV BOLUS
02/07/24 23:19
COVID-19 Antigen Urgent
Source: Nasal Swab
Complete Blood Count/With Diff Urgent
Comprehensive Metabolic Panel Urgent
02/08/24 00:10
CT Abd/pel Without Iv Or Oral Urgent
Reason For Exam: abd pain, fever
02/08/24 00:47
Amoxicillin 875 mg/Clav 125 mg [Augmentin 875 mg/125 mg] 1 tablet PO NOW STA
Potassium Chloride [KCl] 40 meq PO NOW STA
Abnormal Lab Results
02/07/24
23:19
RBC 3.29 L 10^6/uL
(4.70-6.10)
Hgb 10.5 L g/dL
(13.0-18.0)
Hct 30.1 L %
(39.0-52.0)
MCH 31.9 H pg
(27.0-31.0)
RDW 17.2 H %
(11.5-14.5)
Plt Count 100 L 10^3/uL
(130-400)
Abs Immat Gran (auto) 0.1 H 10^3/uL
(0-0.05)
Absolute Monos (auto) 0.8 H 10^3/uL
(0.1-0.6)
Immature Gran % 0.7 H %
(0-0.5)
Lymphocytes % 14.4 L %
(20.5-51.1)
Monocytes % 9.6 H %
(1.7-9.3)
Sodium 133 L mmol/L
(135-145)
Potassium 3.3 L mmol/L
(3.5-5.1)
BUN 22 H mg/dl
(9-20)
Glucose 123 H mg/dl
(70-99)
Calcium 8.1 L mg/dl
(8.4-10.2)
Alkaline Phosphatase 178 H U/L
(38-126)
Total Protein 5.4 L g/dl
(6.3-8.2)
Albumin 3.1 L g/dl
(3.5-5.0)
02/07/24 23:19
02/07/24 23:19
Vital Signs
Initial and Last Documented VS:
Initial Vital Signs
Temp Pulse Resp BP Pulse Ox
36.9 C 73 20 98/60 97
02/07/24 22:17 02/07/24 22:17 02/07/24 22:17 02/07/24 22:17 02/07/24 22:17
Last Documented Vital Signs
Temp Pulse Resp BP Pulse Ox
36.9 C 78 18 119/79 98
02/07/24 22:17 02/08/24 01:01 02/08/24 01:01 02/08/24 01:01 02/08/24 01:01
MDM/Problems Addressed
Differential Diagnosis Includes:
Diverticulitis, colitis, enteritis, UTI, pneumonia
MDM/Problems Addressed:
73-year-old male presents to the emergency room for evaluation of diarrhea, fatigue, fever in the setting of recent chemotherapy. Took Tylenol just prior to arrival for fever. Vitals normal here, notably afebrile. Physical exam as above. Plan to
place an IV check labs including a CBC and a CMP. Will check COVID swab. Check chest x-ray. Will send for CT abdomen pelvis. Send stool studies if able. Provide IV fluids. Reassess after the above.
Labs reviewed: CBC shows marginal anemia stable. CMP shows mild hypokalemia likely from GI losses--replete p.o. COVID swab negative. Chest x-ray shows no acute disease. CT abdomen pelvis called back by radiology: Positive for enteritis/ileitis.
I had a long discussion with the patient�I recommended admission given his immunocompromise status and recommended coverage with antibiotics. After receiving IV fluids here patient says that he feels much better. He says that he does not wish to
stay in the hospital and is requesting to be discharged. I did explain that he is high risk for sepsis and progression of infection given his immunocompromise status; although at least somewhat reassuringly he has not spiked another fever here and
has normal WBC. He indicated understanding of the risks and still feels comfortable with discharge, I do think we should at least cover with an oral antibiotic. Encouraged him to collect stool sample at home as he was not able to provide one
here�we provided a kit for him to take with him to his oncologist who he plans to follow-up with on Sunday. I did explain to him that he should have a very low threshold for return to the emergency department. He indicated understanding. All
questions answered.
Chronic conditions affecting care:
Metastatic colon cancer
*Radiology
Radiology exam reviewed: radiology read reviewed
*Pulse Oximetry
Patient hypoxic: no
*Critical Care Note
Total Time (30-74mins, 75-104mins- exclusive of procedures): Not Applicable
Data Reviewed
Review of Other/Old Records Reveals: Labs and Records
Source: patient, records and family
Patient Management
Social determinants of health affecting care: Strong social support
Escalation/DeEscalation of care consider admission/obs:
Recommended admission but using shared decision making patient opted for discharge with strict return precautions and close outpatient follow-up
ED Attending Note
-
Portions of this chart may have been created with voice recognition software.� Occasional wrong word or��sound alike� substitutions may have occurred due to the inherent limitations of voice recognition software.
Discharge Plan
Departure
Patient Disposition: Home (Routine Discharge)
Date of Disposition: 02/08/24
Time of Disposition: 00:49
Patient with high blood pressure during this ER visit?: No
Discharge Problem:
Enteritis, Hypokalemia, Dehydration
Instructions: Fever, Adult (DC), Diarrhea, Adult ED
Prescriptions:
New
amoxicillin-pot clavulanate 875-125 mg tablet
1 tab PO BID 7 Days Qty: 14 0RF
No Action
atorvastatin 20 mg Tablet
20 mg PO QPM
tamsulosin 0.4 mg Capsule
0.4 mg PO BID
Rx Instructions:
taken morning and night
finasteride 5 mg Tablet
5 mg PO QPM
jsqnjugcgjnp-gqyxnpbd-fuonoc Tablet
1 tab PO DAILY
fish,bora,flax oils-om3,6,9no1 [Triple [place] 3-6-9] 400-400-400 mg Capsule
2 cap PO DAILY
methenamine hippurate 1 gram Tablet
1 g PO BID
aspirin [Children's Aspirin] 81 mg Tablet,Chewable
81 mg PO DAILY Qty: 90 0RF
lidocaine-prilocaine 2.5-2.5 % Cream
1 applic TOPICAL ONCE
omeprazole 20 mg Tablet,Delayed Release (Dr/Ec)
20 mg PO QPM
acetaminophen 325 mg Tablet
650 mg PO Q4HPRN PRN (Reason: mild pain/MCCANN/temp> 100.4F) 30 Days Qty: 60 0RF
loratadine [Claritin] 10 mg tablet
10 mg PO DAILY PRN (Reason: muscle/joint pain) Qty: 30 0RF
Rx Instructions:
give when giving neulasta
amlodipine 5 mg Tablet
5 mg PO DAILY
carvedilol 3.125 mg Tablet
3.125 mg PO BID 30 Days Qty: 60 0RF
Referrals:
Margarito Edwards MD [Family Provider] - Follow up in 2-3 days
Activity Restrictions/Additional Instructions:
Thank you for visiting the Emergency Department at [facility].
1. Please schedule a follow up appointment as directed. Call first thing tomorrow morning to make an appointment.
2. If indicated, please take your medications as instructed and indicated on discharge paperwork.
3. If any of your symptoms do not improve, or persist, or become more severe within 6-12 hours, please return to the emergency department for further care.
4. Please return to the emergency department if you develop a headache, neck pain/stiffness, fever greater than 100.4F, chest pain, shortness of breath, persistent nausea, vomiting, slurred speech, difficulty walking, numbness/tingling, weakness,
signs of infection or any other symptoms that are worrisome to you.
Please call [phone] if you have any questions.
Interventions
Interventions:
*Risk Screen - Suicide Last Done: 02/07/24 23:00
*General Assessment Last Done: 02/07/24 23:00
*Neglect/Abuse Screening Last Done: 02/07/24 23:00
*Nursing Disposition Last Done: 02/08/24 01:02
ED- Neurological Assessment Last Done: 02/08/24 00:02
ED-Skin Assessment Last Done: 02/08/24 00:02
Discharge Date and Time
Discharge Date/Time: 02/08/24 01:03
Print Language: EGYPTIAN
== END 2024-02-08 01:03 | disposition home or self-care (01) ==
LOC: EMR 22:08
PROVIDERS: EMERGENCY PHYSICIAN Emergency Medicine; FAMILY PHYSICIAN Family Medicine
DX: K52.9 Noninfective gastroenteritis and colitis, unspecified (principal); E87.6 Hypokalemia; E86.0 Dehydration; I10 Essential (primary) hypertension; E78.00 Pure hypercholesterolemia, unspecified; I71.40 Abdominal aortic aneurysm, without rupture, unspecified; N40.0 Benign prostatic hyperplasia without lower urinary tract symptoms; N41.9 Inflammatory disease of prostate, unspecified; Z85.038 Personal history of other malignant neoplasm of large intestine; Z87.891 Personal history of nicotine dependence; Z90.49 Acquired absence of other specified parts of digestive tract
CPT/HCPCS: 99284; 96360; 71046; 74176; 80053; 85025; 87811

== ENCOUNTER → 2024-03-13 11:44 | Outpatient (REF) | payer MEDICARE, OTHER, SELFPAY | LOC: RAD 11:44 | PROVIDERS: ATTENDING PHYSICIAN Registered Nurse; FAMILY PHYSICIAN Family Medicine | DX: C18.9 Malignant neoplasm of colon, unspecified (principal); C18.2 Malignant neoplasm of ascending colon; R60.0 Localized edema | CPT/HCPCS: 93970 ==

== ENCOUNTER 2024-05-06 21:31 | Emergency (ER) | payer MEDICARE, OTHER, SELFPAY ==
[2024-05-06 21:33] VITALS: BP 178/99
--- NOTE | 2024-05-06 22:27 | ED.GENMED ---
History of Present Illness
General
Chief Complaint: Blood Pressure Problem
Source: patient and family
Exam Limitations: none
Time Seen by Provider: 05/06/24 21:50
Nursing documentation reviewed up to this point in time: agreed with
History of Present Illness
History of Present Illness:
73-year-old male presents emergency department due to elevated blood pressure. He states he felt uneasy, so he checked his blood pressure and noted that it was elevated. He denies any chest pain or shortness of breath. He got in a Avastin
treatment today for his colon cancer.
Past History
Past History
ED Past Medical History: Cancer (Colon cancer), HTN, Hypercholesterolemia, Other (AAA) and Other (BPH/prostatitis)
ED Past Surgical History: Cholecystectomy and Tonsilectomy
Social History
Tobacco: Former smoker
Alcohol: None
Drug: None
Personal:
Living: with family
Review of Systems
Review of Systems
Allergies reviewed?: Yes
All Other Systems: Not applicable
Constitutional: Reports no symptoms
EENT: Reports no symptoms
Respiratory: Reports no symptoms
Cardiac: Reports no symptoms; Denies chest pain
ABD/GI: Reports no symptoms
: Reports no symptoms
Musculoskeletal: Reports no symptoms
Skin: Reports no symptoms
Neurological: Reports no symptoms
Endocrine: Reports no symptoms
Hematologic/Lymphatic: Reports no symptoms
Psychiatric: Reports no symptoms
Phy Exam
Physical Exam
Physical Exam:
Physical Exam
General: no apparent distress, not acutely ill
Neck: supple. no meningeal signs. normal posterior pharynx
Heart: s1/s2 regular rate and rhythm, no murmur. equal radial
pulses.
HEENT: Pupils equal round reactive to light, EOMI
Lungs: no acute respiratory distress. clear bilaterally
Abdomen: normal bowel sounds. not tender. no CVAT
Neuro: alert and oriented. no focal neurological deficits cranial nerves II through XII intact
Skin: no rash
Psychiatric: well kept. interactive and cooperative
Extremities: no edema. no calf tenderness. negative homans. good distal pulses
Course
Orders/Labs/Results
Orders:
Orders
05/06/24 21:38
EKG [Electrocardiogram (*1)] Urgent
Reason for Study: Hypertension, Benign
EKG- Treatment ONCE
05/06/24 22:31
Cardiac Monitoring- Treatment ONCE
IV Insert/Care/Rem.- Treatment PRN
05/06/24 22:35
Complete Blood Count/With Diff Urgent
Comprehensive Metabolic Panel Urgent
Magnesium Urgent
Abnormal Lab Results
05/06/24
22:35
RBC 3.20 L 10^6/uL
(4.70-6.10)
Hgb 10.6 L g/dL
(13.0-18.0)
Hct 31.6 L %
(39.0-52.0)
MCV 98.8 H fL
(80.0-94.0)
MCH 33.1 H pg
(27.0-31.0)
RDW 18.0 H %
(11.5-14.5)
Absolute Monos (auto) 0.8 H 10^3/uL
(0.1-0.6)
Monocytes % 12.7 H %
(1.7-9.3)
Eosinophils % 11.3 H %
(0-6)
BUN 23 H mg/dl
(9-20)
Creatinine 1.4 H mg/dL
(0.7-1.3)
Glucose 102 H mg/dl
(70-99)
Alkaline Phosphatase 157 H U/L
(38-126)
Total Protein 6.1 L g/dl
(6.3-8.2)
05/06/24 22:35
05/06/24 22:35
Vital Signs
Initial and Last Documented VS:
Initial Vital Signs
Temp Pulse Resp BP Pulse Ox
97.9 F 76 20 178/99 98
05/06/24 21:33 05/06/24 21:33 05/06/24 21:33 05/06/24 21:33 05/06/24 21:33
Last Documented Vital Signs
Temp Pulse Resp BP Pulse Ox
97.9 F 76 20 178/99 98
05/06/24 21:33 05/06/24 21:33 05/06/24 21:33 05/06/24 21:33 05/06/24 21:33
MDM/Problems Addressed
Differential Diagnosis Includes:
Electrolyte abnormality, elevated blood pressure
MDM/Problems Addressed:
73-year-old male with elevated blood pressure, no signs of endorgan damage. Patient has chronic renal insufficiency. Stable for discharge. Follow-up with primary care.
Chronic conditions affecting care: HTN and Cancer
Acute Exacerbation and/or Progression of Chronic Illness: HTN and Cancer
*Pulse Oximetry
Patient hypoxic: no
*EKG
Interpreted by ED Provider?: Yes
EKG Intrepretation Date: 05/06/24
EKG Intrepretation Time: 21:42
Interpretation: normal
Comparison EKG: no changes
Heart Rate: 66
Rate: normal
Rhythm: sinus
[place]: normal axis
Interval: normal interval
QRS Pattern: normal QRS
Ischemia: no ischemia
*Marketing And Development Coordinator Interpretation
Rate: normal
Interpretation: normal
Heart Rate: 70
Rhythm: sinus
*Critical Care Note
Total Time (30-74mins, 75-104mins- exclusive of procedures): Not Applicable
Patient Management
Social determinants of health affecting care: Living situation and Strong social support
Escalation/DeEscalation of care consider admission/obs:
Admit not indicated
ED Attending Note
-
Portions of this chart may have been created with voice recognition software.� Occasional wrong word or��sound alike� substitutions may have occurred due to the inherent limitations of voice recognition software.
Discharge Plan
Departure
Patient Disposition: Home (Routine Discharge)
Date of Disposition: 05/06/24
Time of Disposition: 23:32
Patient with high blood pressure during this ER visit?: Yes
Condition: Good
Discharge Problem:
Hypertension
Instructions: High Blood Pressure (DC)
Prescriptions:
No Action
atorvastatin 20 mg Tablet
20 mg PO QPM
tamsulosin 0.4 mg Capsule
0.4 mg PO BID
Rx Instructions:
taken morning and night
finasteride 5 mg Tablet
5 mg PO QPM
smxrfnrzrcze-jbwqyagz-uappex Tablet
1 tab PO DAILY
fish,bora,flax oils-om3,6,9no1 [Triple [place] 3-6-9] 400-400-400 mg Capsule
2 cap PO DAILY
methenamine hippurate 1 gram Tablet
1 g PO BID
aspirin [Children's Aspirin] 81 mg Tablet,Chewable
81 mg PO DAILY Qty: 90 0RF
lidocaine-prilocaine 2.5-2.5 % Cream
1 applic TOPICAL ONCE
omeprazole 20 mg Tablet,Delayed Release (Dr/Ec)
20 mg PO QPM
acetaminophen 325 mg Tablet
650 mg PO Q4HPRN PRN (Reason: mild pain/MCCANN/temp> 100.4F) 30 Days Qty: 60 0RF
loratadine [Claritin] 10 mg tablet
10 mg PO DAILY PRN (Reason: muscle/joint pain) Qty: 30 0RF
Rx Instructions:
give when giving neulasta
amlodipine 5 mg Tablet
5 mg PO DAILY
carvedilol 3.125 mg Tablet
3.125 mg PO BID 30 Days Qty: 60 0RF
amoxicillin-pot clavulanate 875-125 mg tablet
1 tab PO BID 7 Days Qty: 14 0RF
Referrals:
Margarito Edwards MD [Family Provider] -
Interventions
Interventions:
*Risk Screen - Suicide Last Done: 05/06/24 21:33
*General Assessment Last Done: 05/06/24 21:33
*Neglect/Abuse Screening Last Done: 05/06/24 21:33
ED- Fall Risk Assessment Last Done: 05/06/24 22:34
*Nursing Disposition Last Done: 05/06/24 23:40
ED- Cardiac Assessment Last Done: 05/06/24 22:34
ED- Neurological Assessment Last Done: 05/06/24 22:34
ED- Pulmonary Assessment Last Done: 05/06/24 22:34
Discharge Date and Time
Discharge Date/Time: 05/06/24 23:40
Print Language: RWANDAN
[2024-05-06 22:34] VITALS: BMI 23.7
[2024-05-06 22:52] LABS: % Basophils 1.4 % (0-2); % Eosinophils 11.3 % (0-6); % Immature Granulocytes 0.3 % (0-0.5); % Lymphocytes 31.1 % (20.5-51.1); % Monocytes 12.7 % (1.7-9.3); % Neutrophils 43.2 % (42.2-75.2); Absolute Basophils 0.1 10^3/uL (0-0.2); Absolute Eosinophils 0.7 10^3/uL (0-0.7); Absolute Monocytes 0.8 10^3/uL (0.1-0.6); Absolute Neutrophils 2.8 10^3/uL (1.4-6.5); Hematocrit 31.6 % (39.0-52.0); Hemoglobin 10.6 g/dL (13.0-18.0); Mean Corp Hgb Conc. 33.5 g/dL (33.0-37.0); Mean Corpuscular Hgb 33.1 pg (27.0-31.0); Mean Corpuscular Volume 98.8 fL (80.0-94.0); Mean Platelet Volume 8.8 fL (7.4-10.4); Nucleated Red Blood Cells % 0 % (-); Platelet Count 175 10^3/uL (130-400); White Blood Cell Count 6.5 10^3/uL (4.8-10.8)
[2024-05-06 23:06] LABS: ALT (SGPT) 18 U/L (0-50); AST (SGOT) 26 U/L (17-59); Albumin 3.6 g/dl (3.5-5.0); Alkaline Phosphatase 157 U/L (38-126); Blood Urea Nitrogen 23 mg/dl (9-20); Carbon Dioxide 26 mmol/L (22-30); Chloride 106 mmol/L (98-107); Estimated Creatinine Clearance 49 ml/min; Glucose 102 mg/dl (70-99); Magnesium 1.6 mg/dl (1.6-2.3); Potassium 3.7 mmol/L (3.5-5.1); Sodium 141 mmol/L (135-145); Total Bilirubin 0.3 mg/dl (0.2-1.3); Total Protein 6.1 g/dl (6.3-8.2); eGFR 52.41
== END 2024-05-06 23:40 | disposition home or self-care (01) ==
LOC: EMR 21:31
PROVIDERS: EMERGENCY PHYSICIAN Emergency Medicine; FAMILY PHYSICIAN Family Medicine
DX: I12.9 Hypertensive chronic kidney disease with stage 1 through stage 4 chronic kidney disease, or unspecified chronic kidney disease (principal); N18.9 Chronic kidney disease, unspecified; C18.9 Malignant neoplasm of colon, unspecified; E78.00 Pure hypercholesterolemia, unspecified; Z87.891 Personal history of nicotine dependence; Z90.49 Acquired absence of other specified parts of digestive tract; Z79.899 Other long term (current) drug therapy
CPT/HCPCS: 99284; 80053; 83735; 85025; 93005

== ENCOUNTER → 2024-05-07 10:56 | Outpatient (REF) | payer MEDICARE, OTHER, SELFPAY | LOC: RCS 10:56 | PROVIDERS: ATTENDING PHYSICIAN Physician Assistant Medical; FAMILY PHYSICIAN Family Medicine | DX: I25.10 Atherosclerotic heart disease of native coronary artery without angina pectoris (principal); R60.0 Localized edema | CPT/HCPCS: 93306 ==

== ENCOUNTER → 2024-09-09 08:33 | Outpatient (REF) | payer MEDICARE, OTHER, SELFPAY | LOC: HWRAD 08:33 | PROVIDERS: ATTENDING PHYSICIAN Surgery Vascular Surgery; FAMILY PHYSICIAN Family Medicine | DX: I71.40 Abdominal aortic aneurysm, without rupture, unspecified (principal) | CPT/HCPCS: 74176 ==

== ENCOUNTER → 2024-09-22 06:34 | Outpatient (REF) | payer MEDICARE, OTHER, SELFPAY | LOC: RAD 06:34 | PROVIDERS: ATTENDING PHYSICIAN Surgery Vascular Surgery; FAMILY PHYSICIAN Family Medicine | DX: I71.40 Abdominal aortic aneurysm, without rupture, unspecified (principal) | CPT/HCPCS: 76770; 93975 ==

== ENCOUNTER → 2024-10-01 06:36 | Outpatient (REF) | payer MEDICARE, OTHER, SELFPAY | LOC: RAD 06:36 | PROVIDERS: ATTENDING PHYSICIAN Surgery Vascular Surgery; FAMILY PHYSICIAN Family Medicine | DX: I71.40 Abdominal aortic aneurysm, without rupture, unspecified (principal) | CPT/HCPCS: 93975 ==

== ENCOUNTER → 2025-03-11 12:11 | Outpatient (REF) | payer MEDICARE, OTHER, SELFPAY | LOC: CLAB 12:11 | PROVIDERS: ATTENDING PHYSICIAN Specialist | DX: C67.9 Malignant neoplasm of bladder, unspecified (principal) | CPT/HCPCS: 88112 ==

== ENCOUNTER → 2025-04-08 09:30 | Outpatient (REF) | payer MEDICARE, OTHER, SELFPAY ==
[2025-04-08 09:56] LABS: Glucose 106 mg/dl (70-99)
== END ==
LOC: PET 09:30
PROVIDERS: ATTENDING PHYSICIAN Internal Medicine Hematology & Oncology
DX: C18.9 Malignant neoplasm of colon, unspecified (principal); C18.2 Malignant neoplasm of ascending colon; E78.5 Hyperlipidemia, unspecified; R53.81 Other malaise
CPT/HCPCS: 36415; 82947